=== PATIENT | male | born 1960 | race Caucasian/White ===

== ENCOUNTER 2022-08-07 10:23 | Observation (INO) ==
--- NOTE | 2022-08-07 10:41 | DR.CP ---
HPI Time Seen Time Seen by Provider: 08/07/22 10:40 PCP Primary Care Physician: Shant Silva HPI Comment HPI Comment: PATIENT IS 62YR OLD MALE WITH HISTORY OF CAD AND COPD IN ER WITH CHEST TIMES 4 DAYS. Complaint Chief Complaint:: Mid chest pain with shortness of breath that started a few days ago. He denies any relief. He had a stent in [place], [place] at [facility] under Safille in June. He last Safille on July 27 in [place] office, that appointment went well, no comlaints. Self Treatment fo Chief Complaint: nitro last this morning at 9:30, Lisinopril, Carvediolol, Asp Reviewed Nurses Notes Review: Yes Source History Provided: Patient Mode of Arrival Mode of Arrival: Ambulatory Timing Onset of Chief Complaint: 08/03/22 PMH PMH Past Medical History: Yes Past Medical History: COPD Past Medical History Comment: emphysema Past Surgical History: Yes Surgical History: Cholecystectomy and Other Past Surgical History Comment: heart stent Family History History of Family Medical Conditions: Yes Family Medical History: Diabetes Mellitus, Cancer, [place], Coronary Artery Disease, Heart Failure and Hypertension Social History Does patient currently use any type of tobacco product: No Have you used tobacco products in the last 12 months: No Type of Tobacco Use: Cigarettes How many years tobacco product used: 50 Does any household member use tobacco: No Alcohol Use: None Do you use any recreational Drugs:: No Lives With: Spouse and Friend Lives Where: Home Infectious screening In the last 2 months have you had wt loss of >10#?: NO Have you had fever, night sweats or hemotysis?: No Have you traveled outside the country in the last 6 months?: No Isolation: Standard PE Vitals Vitals: Temperature 98.1 F Pulse Rate [Left Radial] 79 Pulse Rate 65 Respiratory Rate 34 Blood Pressure [Left Arm] 89/55 Blood Pressure 108/59 O2 Sat by Pulse Oximetry 96 ROR Labs Reviewed Result Diagrams: 08/07/22 10:55 08/07/22 10:45 Laboratory: WBC 10.1 X10^3/uL (3.6-10.0) H 08/07/22 10:55 RBC 5.24 X10^6/uL (4.7-6.0) 08/07/22 10:55 Hgb 16.2 g/dL (13.5-18.0) 08/07/22 10:55 Hct 47.2 % (42.0-54.0) 08/07/22 10:55 MCV 90.1 fL (80.0-100.0) 08/07/22 10:55 MCH 31.0 pg (27.0-34.0) 08/07/22 10:55 MCHC 34.4 g/dL (33.0-35.0) 08/07/22 10:55 RDW 14.1 % (11.6-16.5) 08/07/22 10:55 Plt Count 262 X10^3/uL (150.0-450.0) 08/07/22 10:55 MPV 8.1 fL (7.4-11.0) 08/07/22 10:55 Neut % (Auto) 59.6 % (42.0-75.0) 08/07/22 10:55 Lymph % (Auto) 28.2 % (21.0-51.0) 08/07/22 10:55 [place] % (Auto) 9.8 % (0.0-13.0) 08/07/22 10:55 Eos % (Auto) 1.8 % (0.9-2.9) 08/07/22 10:55 Baso % (Auto) 0.6 % (0.2-1.0) 08/07/22 10:55 Neut # (Auto) 6.0 x10^3/uL (2.2-4.8) H 08/07/22 10:55 Lymph # (Auto) 2.9 X10^3/uL (1.3-2.9) 08/07/22 10:55 [place] # (Auto) 1.0 x10^3/uL (0.3-0.8) H 08/07/22 10:55 Eos # (Auto) 0.2 x10^3/uL (0.0-0.2) 08/07/22 10:55 Baso # (Auto) 0.1 X10^3/uL (0.0-0.1) 08/07/22 10:55 Absolute Nucleated RBC 0.1 /100WBC 08/07/22 10:55 PT 13.2 SECONDS (11.8-14.3) 08/07/22 10:55 INR Target Range - 08/07/22 10:55 INR 1.03 (0.8-1.3) 08/07/22 10:55 APTT 32.0 SECONDS (22.9-36.5) 08/07/22 10:55 PTT Comment - 08/07/22 10:55 Sodium Cancelled 08/07/22 10:55 Corrected Sodium Cancelled 08/07/22 10:55 Potassium Cancelled 08/07/22 10:55 Chloride Cancelled 08/07/22 10:55 Carbon Dioxide Cancelled 08/07/22 10:55 BUN Cancelled 08/07/22 10:55 Creatinine Cancelled 08/07/22 10:55 Est GFR (MDRD) Af Amer Cancelled 08/07/22 10:55 Est GFR (MDRD) Non-Af Cancelled 08/07/22 10:55 Glucose Cancelled 08/07/22 10:55 Calcium Cancelled 08/07/22 10:55 Corrected Calcium Cancelled 08/07/22 10:55 Total Bilirubin Cancelled 08/07/22 10:55 AST Cancelled 08/07/22 10:55 ALT Cancelled 08/07/22 10:55 Alkaline Phosphatase Cancelled 08/07/22 10:55 Creatine Kinase 176 Units/L (39-308) 08/07/22 14:45 Troponin I High Sens 6.7 ng/L (4.0-60.0) 08/07/22 14:45 Total Protein Cancelled 08/07/22 10:55 Albumin Cancelled 08/07/22 10:55 Globulin Cancelled 08/07/22 10:55 Albumin/Globulin Ratio Cancelled 08/07/22 10:55 Opioid Opioid Risk Tool Age (Lexa box if 16-45): No History of Preadolescent Sexual Abuse: No Total: 0 Total Score Risk Category: Low Risk Copyright: Barry MERRITT predicting aberrant behaviors Discharge Plan Discharge Plan Patient Disposition: 01 HOME, SELF-CARE Condition: Stable Health Concerns: Post Hospitalization: new medications and changes needed to prevent readmission or further decline. Pt educated and given instructions on all concerns. Plan of Treatment: Continue with present treatment and follow up plan. Pt is to keep follow up appointment as instructed and take medications as ordered. Orders to Discharge Patient Discharge Orders: Transfer (Routine); Ordered 08/07/22 Ordered By: YOJANA LEAL Follow ups/Referrals Follow ups/Referrals: SHANT SILVA [Primary Care Provider] - 3 days
[2022-08-07 11:08] LABS: HEMOGLOBIN 16.2 g/dL (13.5-18.0); MEAN PLATELET VOLUME 8.1 fL (7.4-11.0); WHITE BLOOD COUNT 10.1 X10^3/uL (3.6-10.0)
--- NOTE | 2022-08-07 11:08 | EKG ---
Test Reason : CHEST PAIN,SOB Blood Pressure : */* mmHG Vent. Rate : 67 BPM Atrial Rate : 67 BPM P-R Int : 176 ms QRS Dur : 96 ms QT Int : 372 ms P-R-T Axes : 53 73 59 degrees QTc Int : 393 ms Normal sinus rhythm Normal ECG Confirmed by Tommy Smith ([id number]) on 08/17/2022 6:03:28 PM Referred By: Confirmed By: Tommy Smith
[2022-08-07 11:11] LABS: BASOPHILS # (AUTO) 0.1 X10^3/uL (0.0-0.1); BASOPHILS % (AUTO) 0.6 % (0.2-1.0); EOSINOPHILS # (AUTO) 0.2 x10^3/uL (0.0-0.2); EOSINOPHILS % (AUTO) 1.8 % (0.9-2.9); HEMATOCRIT 47.2 % (42.0-54.0); LYMPHOCYTES # (AUTO) 2.9 X10^3/uL (1.3-2.9); LYMPHOCYTES % (AUTO) 28.2 % (21.0-51.0); MEAN CORPUSCULAR HGB CONC 34.4 g/dL (33.0-35.0); MEAN CORPUSCULAR VOLUME 90.1 fL (80.0-100.0); MONOCYTES % (AUTO) 9.8 % (0.0-13.0); NEUTROPHILS % (AUTO) 59.6 % (42.0-75.0); RED BLOOD COUNT 5.24 X10^6/uL (4.7-6.0); RED CELL DISTRIBUTION WIDTH 14.1 % (11.6-16.5)
[2022-08-07 11:17] LABS: INR 1.03 (0.8-1.3)
[2022-08-07 11:20] LABS: ALANINE AMINOTRANSFERASE 26 Units/L (12-78); ALBUMIN 3.6 g/dL (3.4-5.0); ALKALINE PHOSPHATASE 65 Units/L (46-116); ASPARTATE AMINO TRANSFERASE 24 Units/L (15-37); BLOOD UREA NITROGEN 10 mg/dL (7-18); CALCIUM 8.4 mg/dL (8.5-10.1); CARBON DIOXIDE 28.4 mmol/L (21-32); CHLORIDE 102 mmol/L (98-107); COR NA(FOR HYPERGLY) 138 mmol/L (136-145); CREATINE KINASE 195 Units/L (39-308); CREATININE 0.98 mg/dL (0.70-1.30); SODIUM 137 mmol/L (136-145); TOTAL PROTEIN 6.6 g/dL (6.4-8.2); eGFR NON BLACK RACES > 60 (>60)
--- NOTE | 2022-08-07 11:46 | RAD ---
HISTORYChest painSTUDYCHEST, 1 [id number] cardiomediastinal silhouette is stable. Similar chronic changes in the lungs. No acute airspace disease. No pneumothorax or effusion. The bony thorax appears intact.IMPRESSIONNo acute cardiopulmonary disease.Electronically signed by: LILY GOLD (Aug 07, 2022 11:44:53)
[2022-08-07] MEDS ORDERED: MORPHINE SULFATE INJ 2 MG INJ IVP PRN (17:36)
[2022-08-07 18:04] VITALS: BMI 29.3
[2022-08-07] MEDS: PEPCID 20 MG VIAL 20 MG in NS 50 ML IV 50 ML IV SCH ×2 (19:04→21:00)
[2022-08-07] MEDS ORDERED: NS 250 ML IV 250 ML IV ONE (20:01)
[2022-08-07] MEDS: PULMICORT NEB TX 0.5 MG NEB SCH (21:00)
--- NOTE | 2022-08-08 01:41 | EKG ---
Test Reason : chest pain,sob Blood Pressure : */* mmHG Vent. Rate : 60 BPM Atrial Rate : 60 BPM P-R Int : 186 ms QRS Dur : 94 ms QT Int : 390 ms P-R-T Axes : 62 77 61 degrees QTc Int : 390 ms Normal sinus rhythm Normal ECG Confirmed by Tommy Smith ([id number]) on 08/17/2022 6:02:10 PM Referred By: Confirmed By: Tommy Smith
[2022-08-08 02:33] LABS: BASOPHILS # (AUTO) 0.1 X10^3/uL (0.0-0.1); BASOPHILS % (AUTO) 0.7 % (0.2-1.0); EOSINOPHILS # (AUTO) 0.2 x10^3/uL (0.0-0.2); HEMATOCRIT 49.3 % (42.0-54.0); HEMOGLOBIN 16.9 g/dL (13.5-18.0); LYMPHOCYTES # (AUTO) 3.5 X10^3/uL (1.3-2.9); LYMPHOCYTES % (AUTO) 33.8 % (21.0-51.0); MEAN CORPUSCULAR HEMOGLOBIN 30.8 pg (27.0-34.0); MEAN CORPUSCULAR HGB CONC 34.3 g/dL (33.0-35.0); MEAN CORPUSCULAR VOLUME 89.7 fL (80.0-100.0); MEAN PLATELET VOLUME 7.9 fL (7.4-11.0); MONOCYTES # (AUTO) 1.3 x10^3/uL (0.3-0.8); NEUTROPHILS # (AUTO) 5.2 x10^3/uL (2.2-4.8); NEUTROPHILS % (AUTO) 50.5 % (42.0-75.0); WHITE BLOOD COUNT 10.3 X10^3/uL (3.6-10.0)
[2022-08-08 02:43] LABS: ALANINE AMINOTRANSFERASE 23 Units/L (12-78); ALBUMIN 3.6 g/dL (3.4-5.0); ALKALINE PHOSPHATASE 64 Units/L (46-116); ASPARTATE AMINO TRANSFERASE 19 Units/L (15-37); BLOOD UREA NITROGEN 9 mg/dL (7-18); CALCIUM 8.2 mg/dL (8.5-10.1); CARBON DIOXIDE 29.7 mmol/L (21-32); CHLORIDE 104 mmol/L (98-107); CHOL/HDL RATIO 2.9 (0.0-5.0); CHOLESTEROL 98 mg/dL (0-200); CREATININE 0.94 mg/dL (0.70-1.30); HDL CHOLESTEROL 34 mg/dL (40-60); MAGNESIUM 1.8 mg/dL (2.0-2.9); SODIUM 141 mmol/L (136-145); TOTAL PROTEIN 6.6 g/dL (6.4-8.2); TRIGLYCERIDES 124 mg/dL (0-150); eGFR NON BLACK RACES > 60 (>60)
[2022-08-08] MEDS: PEPCID 20 MG VIAL 20 MG in NS 50 ML IV 50 ML IV SCH (08:16)
[2022-08-08] MEDS: PULMICORT NEB TX 0.5 MG NEB SCH ×2 (08:47→20:20)
[2022-08-08] MEDS ORDERED: LEVSIN/MAALOX/LIDOC VISC PO PRN (12:08)
--- NOTE | 2022-08-08 12:14 | DR.H&P ---
H&P History & Physical for Day of: H&P Date: 08/08/22 Chief Complaint Chief Complaint: chest pain Allergies Allergies Allergy/AdvReac Type Severity Reaction Status Date / Time No Known Drug Allergies Allergy Verified 07/22/22 00:06 History of Present Illness History of Present Illness: Mr Cleaning is a 62y/o male with a PMH of CAD s/p PCI, COPD, HTN and HLD presented with worsening chest pain. He reports having constant chest pain for the past few days. Denies any falls. He took some nitro yesterday with partial relief. He also reports worsening indigestion and usually drinks 2 Dr Peppers to make it better but that did not work. He reports constant mid-sternum discomfort. Denies any radiation to the neck or arm. No associated N/V or diaphoresis or SOB. In the ER, cardiac enzymes were negative, CXR did not show any infection. He was admitted for further evaluation. Patient had a stent placed in [facility] in July and sees Dr Smith. Labs reviewed Trop x 4 negative WBC 10.3 BUN/Cr 9/0.94 CXR: no acute process Plan: Continue telemetry, confirm patient's home medications, continue pain control. Continue pepcid, add GI cocktail. Replace Mag. Monitor AM labs/imaging. Past Medical History Past Medical History: COPD Past Surgical History Surgical History: Cholecystectomy and Other Family History Family Medical History: Diabetes Mellitus, Cancer, [place], Coronary Artery Disease, Heart Failure and Hypertension Social History Does patient currently use any type of tobacco product: No (States quit 1 week ago) Have you used tobacco products in the last 12 months: No Type of Tobacco Use: Cigarettes How many years tobacco product used: 50 Does any household member use tobacco: No Alcohol Use: None Drug Use: None Medications Home Medications: No Known Drug Allergies Allergy (Verified 07/22/22 00:06) Labs Result Diagrams: 08/08/22 02:17 08/08/22 02:17 Labs: Laboratory WBC 10.3 X10^3/uL (3.6-10.0) H 08/08/22 02:17 RBC 5.50 X10^6/uL (4.7-6.0) 08/08/22 02:17 Hgb 16.9 g/dL (13.5-18.0) 08/08/22 02:17 Hct 49.3 % (42.0-54.0) 08/08/22 02:17 MCV 89.7 fL (80.0-100.0) 08/08/22 02:17 MCH 30.8 pg (27.0-34.0) 08/08/22 02:17 MCHC 34.3 g/dL (33.0-35.0) 08/08/22 02:17 RDW 14.0 % (11.6-16.5) 08/08/22 02:17 Plt Count 260 X10^3/uL (150.0-450.0) 08/08/22 02:17 MPV 7.9 fL (7.4-11.0) 08/08/22 02:17 Neut % (Auto) 50.5 % (42.0-75.0) 08/08/22 02:17 Lymph % (Auto) 33.8 % (21.0-51.0) 08/08/22 02:17 [place] % (Auto) 13.0 % (0.0-13.0) 08/08/22 02:17 Eos % (Auto) 2.0 % (0.9-2.9) 08/08/22 02:17 Baso % (Auto) 0.7 % (0.2-1.0) 08/08/22 02:17 Neut # (Auto) 5.2 x10^3/uL (2.2-4.8) H 08/08/22 02:17 Lymph # (Auto) 3.5 X10^3/uL (1.3-2.9) H 08/08/22 02:17 [place] # (Auto) 1.3 x10^3/uL (0.3-0.8) H 08/08/22 02:17 Eos # (Auto) 0.2 x10^3/uL (0.0-0.2) 08/08/22 02:17 Baso # (Auto) 0.1 X10^3/uL (0.0-0.1) 08/08/22 02:17 Absolute Nucleated RBC 0.0 /100WBC 08/08/22 02:17 PT 13.2 SECONDS (11.8-14.3) 08/07/22 10:55 INR Target Range - 08/07/22 10:55 INR 1.03 (0.8-1.3) 08/07/22 10:55 APTT 32.0 SECONDS (22.9-36.5) 08/07/22 10:55 PTT Comment - 08/07/22 10:55 Sodium 141 mmol/L (136-145) 08/08/22 02:17 Corrected Sodium TNP 08/08/22 02:17 Potassium 4.0 mmol/L (3.5-5.1) 08/08/22 02:17 Chloride 104 mmol/L (98-107) 08/08/22 02:17 Carbon Dioxide 29.7 mmol/L (21-32) 08/08/22 02:17 BUN 9 mg/dL (7-18) 08/08/22 02:17 Creatinine 0.94 mg/dL (0.70-1.30) 08/08/22 02:17 Est GFR (MDRD) Af Amer > 60 (>60) 08/08/22 02:17 Est GFR (MDRD) Non-Af > 60 (>60) 08/08/22 02:17 Glucose 92 mg/dL (65-99) 08/08/22 02:17 Calcium 8.2 mg/dL (8.5-10.1) L 08/08/22 02:17 Corrected Calcium TNP 08/08/22 02:17 Magnesium 1.8 mg/dL (2.0-2.9) L 08/08/22 02:17 Total Bilirubin 0.50 mg/dL (0.2-1.0) 08/08/22 02:17 AST 19 Units/L (15-37) 08/08/22 02:17 ALT 23 Units/L (12-78) 08/08/22 02:17 Alkaline Phosphatase 64 Units/L (46-116) 08/08/22 02:17 Creatine Kinase 120 Units/L (39-308) 08/08/22 08:04 Troponin I High Sens 6.9 ng/L (4.0-60.0) 08/08/22 08:04 Total Protein 6.6 g/dL (6.4-8.2) 08/08/22 02:17 Albumin 3.6 g/dL (3.4-5.0) 08/08/22 02:17 Globulin 3.0 g/dL (2.5-4.5) 08/08/22 02:17 Albumin/Globulin Ratio 1.2 Ratio (1.1-2.1) 08/08/22 02:17 Triglycerides 124 mg/dL (0-150) 08/08/22 02:17 Cholesterol 98 mg/dL (0-200) 08/08/22 02:17 LDL Cholesterol, Calc 39 mg/dL (0-100) 08/08/22 02:17 HDL Cholesterol 34 mg/dL (40-60) L 08/08/22 02:17 Cholesterol/HDL Ratio 2.9 (0.0-5.0) 08/08/22 02:17 Review of Systems Constitutional: No Symptoms Reported Eyes: No Symptoms Reported ENT: No Symptoms Reported Respiratory: No Symptoms Reported Cardiovascular: Chest Pain Gastrointestinal: No Symptoms Reported Musculoskeletal: No Symptoms Reported Skin: No Symptoms Reported Neurological: No Symptoms Reported Physical Exam Vital Signs: Temperature 97.9 F Pulse Rate [Left Radial] 62 Pulse Rate 63 Respiratory Rate 20 Blood Pressure [Left Arm] 141/71 Blood Pressure 108/59 O2 Sat by Pulse Oximetry 93 Oriented: Normal Eyes: Normal Ear: Normal Throat: Normal Respiratory: Clear Throughout Cardiovascular: Normal Auscultation: Bowel Sounds: Normal Palpation: Normal Tenderness: Normal Musculoskeletal: Normal Psychiatric: Normal Mood Description: Calm Affect: Normal Speech Pattern: Clear and Appropriate Assessment/Plan (1) Indigestion: Status: Acute (2) Chest pain: Qualifiers: Chest pain type: unspecified Qualified Code(s): R07.9 - Chest pain, unspecified Status: Acute (3) CAD (coronary artery disease): Status: Acute (4) HTN (hypertension): Status: Acute (5) GERD (gastroesophageal reflux disease): Status: Acute (6) COPD (chronic obstructive pulmonary disease): Status: Acute Review H&P Reviewed: Yes Patient was examined?: Yes
[2022-08-08] MEDS: ASPIRIN 81 MG CHEWTAB PO SCH (14:39)
[2022-08-08] MEDS: ZESTRIL TAB 5 MG PO SCH (14:40)
[2022-08-08] MEDS: COREG TAB 6.25 MG PO SCH ×2 (14:40→20:29)
[2022-08-08] MEDS: PLAVIX PO SCH (14:41)
[2022-08-08] MEDS: PROTONIX TAB 40 MG PO SCH (14:50)
[2022-08-08] MEDS: MAGNESIUM SULFATE 1 GRAM/100 mL PREMIX 1 G/100 ML BAG IV PRN ×2 (15:32→17:01)
[2022-08-08] MEDS ORDERED: PEPCID TAB 20 MG PO PRN (20:00)
[2022-08-08] MEDS: LIPITOR TAB 80 MG PO SCH (20:29)
[2022-08-09 05:15] LABS: BASOPHILS # (AUTO) 0.1 X10^3/uL (0.0-0.1); BASOPHILS % (AUTO) 0.9 % (0.2-1.0); EOSINOPHILS # (AUTO) 0.2 x10^3/uL (0.0-0.2); EOSINOPHILS % (AUTO) 2.1 % (0.9-2.9); HEMATOCRIT 48.7 % (42.0-54.0); HEMOGLOBIN 16.6 g/dL (13.5-18.0); LYMPHOCYTES % (AUTO) 26.2 % (21.0-51.0); MEAN CORPUSCULAR HEMOGLOBIN 30.5 pg (27.0-34.0); MEAN CORPUSCULAR VOLUME 89.7 fL (80.0-100.0); MEAN PLATELET VOLUME 8.1 fL (7.4-11.0); MONOCYTES # (AUTO) 1.5 x10^3/uL (0.3-0.8); MONOCYTES % (AUTO) 12.7 % (0.0-13.0); NEUTROPHILS # (AUTO) 6.7 x10^3/uL (2.2-4.8); NEUTROPHILS % (AUTO) 58.1 % (42.0-75.0); RED BLOOD COUNT 5.43 X10^6/uL (4.7-6.0); RED CELL DISTRIBUTION WIDTH 14.2 % (11.6-16.5); WHITE BLOOD COUNT 11.6 X10^3/uL (3.6-10.0)
[2022-08-09 05:19] LABS: BLOOD UREA NITROGEN 10 mg/dL (7-18); CALCIUM 8.1 mg/dL (8.5-10.1); CARBON DIOXIDE 27.7 mmol/L (21-32); CHLORIDE 104 mmol/L (98-107); MAGNESIUM 1.9 mg/dL (2.0-2.9); SODIUM 141 mmol/L (136-145); eGFR NON BLACK RACES > 60 (>60)
[2022-08-09] MEDS: PULMICORT NEB TX 0.5 MG NEB SCH ×2 (08:23→22:13)
[2022-08-09] MEDS: PLAVIX PO SCH (08:26)
[2022-08-09] MEDS: PROTONIX TAB 40 MG PO SCH (08:27)
[2022-08-09] MEDS: ASPIRIN 81 MG CHEWTAB PO SCH (08:27)
[2022-08-09] MEDS: COREG TAB 6.25 MG PO SCH ×2 (08:27→20:12)
--- NOTE | 2022-08-09 08:45 | PCM.PROG ---
Progress Note Progress Note for Day of Date of Exam: 08/09/22 Subjective Subjective: This morning the patient continues to pull complain of pain in the epigastrium and right upper quadrant. He is tender on palpation both of these areas. He is also complaining of pain in the area just above the epigastrium and the lower chest. All his troponins have been reviewed as well as his EKGs and they are all within normal limits. I will go ahead and order the H. pylori going to see if this is causing his epigastric pain and do a gallbladder ultrasound as he reports to me that he has a history of gallstones. I will go ahead and consult general surgeon, Dr. Mariano to see the patient to see if he will end up needing a cholecystectomy because of the gallstones. Past Medical Family Social History Allergies: Allergies No Known Drug Allergies Allergy (Verified 07/22/22 00:06) Review of Systems ROS: No change since H&P Vital Signs and I&O's Vital Signs: Temperature 97.7 F Pulse Rate [Left Radial] 61 Pulse Rate 60 Respiratory Rate 18 Blood Pressure [Left Arm] 104/64 Blood Pressure 108/59 O2 Sat by Pulse Oximetry 94 Intake and Output: Intake & Output 08/06/22 08/07/22 08/08/22 08/09/22 11:59 11:59 11:59 11:59 Intake Total 2460 / 2460 2370 / 2370 Output Total 900 / 900 Balance 2460 / 2460 1470 / 1470 Physical Exam Oriented: Normal Eyes: Normal Ear: Normal Throat: Normal Cardiovascular: Normal Auscultation: Bowel Sounds: Normal Tenderness: RUQ and Epigastric Musculoskeletal: Normal Psychiatric: Normal Mood Description: Calm Affect: Normal Speech Pattern: Clear and Appropriate Laboratory and Diagnostics Result Diagrams: 08/09/22 04:39 08/09/22 04:39 Labs: Laboratory WBC 11.6 X10^3/uL (3.6-10.0) H 08/09/22 04:39 RBC 5.43 X10^6/uL (4.7-6.0) 08/09/22 04:39 Hgb 16.6 g/dL (13.5-18.0) 08/09/22 04:39 Hct 48.7 % (42.0-54.0) 08/09/22 04:39 MCV 89.7 fL (80.0-100.0) 08/09/22 04:39 MCH 30.5 pg (27.0-34.0) 08/09/22 04:39 MCHC 34.0 g/dL (33.0-35.0) 08/09/22 04:39 RDW 14.2 % (11.6-16.5) 08/09/22 04:39 Plt Count 260 X10^3/uL (150.0-450.0) 08/09/22 04:39 MPV 8.1 fL (7.4-11.0) 08/09/22 04:39 Neut % (Auto) 58.1 % (42.0-75.0) 08/09/22 04:39 Lymph % (Auto) 26.2 % (21.0-51.0) 08/09/22 04:39 [place] % (Auto) 12.7 % (0.0-13.0) 08/09/22 04:39 Eos % (Auto) 2.1 % (0.9-2.9) 08/09/22 04:39 Baso % (Auto) 0.9 % (0.2-1.0) 08/09/22 04:39 Neut # (Auto) 6.7 x10^3/uL (2.2-4.8) H 08/09/22 04:39 Lymph # (Auto) 3.0 X10^3/uL (1.3-2.9) H 08/09/22 04:39 [place] # (Auto) 1.5 x10^3/uL (0.3-0.8) H 08/09/22 04:39 Eos # (Auto) 0.2 x10^3/uL (0.0-0.2) 08/09/22 04:39 Baso # (Auto) 0.1 X10^3/uL (0.0-0.1) 08/09/22 04:39 Absolute Nucleated RBC 0.0 /100WBC 08/09/22 04:39 PT 13.2 SECONDS (11.8-14.3) 08/07/22 10:55 INR Target Range - 08/07/22 10:55 INR 1.03 (0.8-1.3) 08/07/22 10:55 APTT 32.0 SECONDS (22.9-36.5) 08/07/22 10:55 PTT Comment - 08/07/22 10:55 Sodium 141 mmol/L (136-145) 08/09/22 04:39 Corrected Sodium TNP 08/09/22 04:39 Potassium 3.9 mmol/L (3.5-5.1) 08/09/22 04:39 Chloride 104 mmol/L (98-107) 08/09/22 04:39 Carbon Dioxide 27.7 mmol/L (21-32) 08/09/22 04:39 BUN 10 mg/dL (7-18) 08/09/22 04:39 Creatinine 1.00 mg/dL (0.70-1.30) 08/09/22 04:39 Est GFR (MDRD) Af Amer > 60 (>60) 08/09/22 04:39 Est GFR (MDRD) Non-Af > 60 (>60) 08/09/22 04:39 Glucose 98 mg/dL (65-99) 08/09/22 04:39 Calcium 8.1 mg/dL (8.5-10.1) L 08/09/22 04:39 Corrected Calcium TNP 08/08/22 02:17 Magnesium 1.9 mg/dL (2.0-2.9) L 08/09/22 04:39 Total Bilirubin 0.50 mg/dL (0.2-1.0) 08/08/22 02:17 AST 19 Units/L (15-37) 08/08/22 02:17 ALT 23 Units/L (12-78) 08/08/22 02:17 Alkaline Phosphatase 64 Units/L (46-116) 08/08/22 02:17 Creatine Kinase 120 Units/L (39-308) 08/08/22 08:04 Troponin I High Sens 6.9 ng/L (4.0-60.0) 08/08/22 08:04 Total Protein 6.6 g/dL (6.4-8.2) 08/08/22 02:17 Albumin 3.6 g/dL (3.4-5.0) 08/08/22 02:17 Globulin 3.0 g/dL (2.5-4.5) 08/08/22 02:17 Albumin/Globulin Ratio 1.2 Ratio (1.1-2.1) 08/08/22 02:17 Triglycerides 124 mg/dL (0-150) 08/08/22 02:17 Cholesterol 98 mg/dL (0-200) 08/08/22 02:17 LDL Cholesterol, Calc 39 mg/dL (0-100) 08/08/22 02:17 HDL Cholesterol 34 mg/dL (40-60) L 08/08/22 02:17 Cholesterol/HDL Ratio 2.9 (0.0-5.0) 08/08/22 02:17 Plan (1) Indigestion: Status: Acute (2) Chest pain: Status: Acute Qualifiers: Chest pain type: unspecified Qualified Code(s): R07.9 - Chest pain, unspecified (3) CAD (coronary artery disease): Status: Acute (4) HTN (hypertension): Status: Acute (5) GERD (gastroesophageal reflux disease): Status: Acute (6) COPD (chronic obstructive pulmonary disease): Status: Acute (7) Epigastric pain determined by examination: Status: Acute Plan: I will check H. pylori this morning. (8) Right upper quadrant pain: Status: Acute Plan: I will check gallbladder ultrasound today. We will also consult general surgery.
--- OUTSIDE RECORDS SUMMARY | 2022-08-09 09:08 | XMS | Continuity of Care Document ---
:1960 Author Name Control Room Technician, System Address Unavailable Unavailable , Care Team Providers Name Role Phone No, PCP Unavailable Unavailable Shant Silva Unavailable Sonia Mccarthy Unavailable Larry Vera MD Unavailable Physical Therapy, Mason Unavailable Blanca Calderon Unavailable Deepthi Mariano Unavailable Danni Danielle Unavailable Unavailable Aurea Childs Unavailable Unavailable Unavailable Unavailable Problems Name Dates Details Abdominal pain (R10.9, 789.00) Status: A ctive Abdominal pain (R10.9, 789.00) Comments: Suspect patient may have some gastritis and possible stomach ulcer so I will start him on Protonix 40 mg twice daily x3 days then daily after 3 days. Today is Tuesday I will recheck him on Tuesday, 09 August 2022.Tejas nt called earlier this morning wanted come in because of generalized abdominal pain. He comes in when I examined him he was tender in all quadrants and he reported he was having a lot of acid reflux and bloating. Status: Active Allergies (T78.40XA, 995.3) Status: Acti ve Aneurysm (I72.9, 442.9) Status: Active Aortic aneurysm, thoracic (I71.2, 441.2) Comments: Patient comes in today concerned that he was just diagnosed with a 4.2 cm ascending aortic aneurysm in his chest. This is diagnosed 3 weeks ago by ethanol operator, Dr. Stockton in [place], [place]. This was seen on January [address] scan done at [facility] in [place], [place]. Status: Active Asthma Status: Active Back strain, initial encounter (S39.012A, 847.9) Comments: Patient has acute muscle strain I suspect and will treat him with somal, Toradol and p.o. Percocet 10/325 mg since his hydrocodone 7.5/325 mg is not reducing amount of pain he is feeling. I told the pat ient I will recheck him in a month and for him to use a heating pad and hot water heater when he is getting a shower and that if the pain is getting worse prior to then to let me know.Mr. Cleaning comes i n today stating that he had an acute episode of back pain just on the medial side of the left shoulder blade yesterday. This happened after he was standing at the back of his truck and he was smoking a cigarette and he tur tamir and he said it felt like someone stabbed him in the back with a knife. Since then he has had pain that is worsened with taking a deep breath but he is able to move his left arm a nd shoulder with no problems. Palpation revealed that he was exquisitely tender on the upper medial side and the deep muscles of his left upper back just medial to his left shoulder blade. Status: Active Blood pressure abnormally low (R03.1, 796.3) Comments: I will change patient's Coreg from 12.5 mg twice daily to 6.25 mg twice daily Status: Active CAD (coronary artery disease) (I25.10, 414.00) Status: Active Chronic back pain (M54.9, 724.5) Comment s: chronic back pain stable, refill hydrocodone pain medicine in 4 days from today.pain is still controlled with hydrocodone 7.5/325 mg. He still takes this 2 times a day. Status: Active Chronic pain of left knee (M25.562, 719.46) Comments: I will go ahead and refill patient's hydrocodone today. I will check a left knee x-ray to see if there is any changes compared to his last left knee x-ray.Patient reports his knee has been hurting him w marilyn as of late. He does have history of chronic left knee pain. Status: Active Cigarette smoker (F17.210, 305.1) Status : Active Common bile duct dilatation (K83.8, 576.8) Status: Active COPD exacerbation (J44.1, 491.21) Status : Active COPD, severity to be determined (J44.9, 496) Comments: Patient is on Symbicort 60-4.51 puff twice daily. He reports it is helping but thinks he could benefit more from a higher dose. He is 95% on room air today. I will go ahead and his Symbicort 160/4.5 1 puff twice daily. Status: Active [place] of foot (L84, 700) Comments: corn o f the right plantar foot. I will refer to patient to podiatry for further evaluation and treatment, Dr. Mccarthy in [place], [place].it is noted this is an addendum to the note done earlier today. the bottom of the ri ght plantar foot at the pad proximal to the hallux is tender and has thickened skin. Status: Active COVID-19 ruled out (Z20.822, V01.79) Sta tus: Active Dilated intrahepatic bile duct (K83.8, 576.8) Comments: I will refer the patient to gastroenterology, Dr. Calderon for a possible ERCP or if he feel he should transfer him to [facility] so that he may have a MRCP.The patient comes in this morning reporting h e went to the emerge ncy department over the weekend. He had acute episode of abdominal pain in the epigastrium and right upper quadrant. When they went to triage the patient they found him very diaphore tic and pale and wor k-up revealed from a CT scan that he had worsening intrahepatic and extrahepatic biliary dilatation. There was no definite etiology that could be identified although periampullary ma ss or radiolucent ch oledocholithiasis or not excluded. They recommended that the patient have a ERCP or MRCP. Status: Active Encounter for monitoring opioid maintenance therapy (Z51.81, V58.83) Status: Active Excessive urination at night (R35.1, 788.43) Status: Active Fatigue (R53.83, 780.79) Comments: We wi ll check a fatigue work-up.Patient reports feeling tired and fatigued with low energy for several weeks now. He also reports having decreased sexual drive as well. Status: Active Fatigue (R53.83, 780.79) Status: Active Follow-up exam (Z09, V67.9) Comments: Terrance eddy is here for hospital follow-up status post coronary artery stenting x1. Patient developed chest pain while he was with his at [facility] in [place], [place]. While in hospital he had yordan st pain was admitted and Underwent coronary artery stenting x1 Status: Active Hepatitis-C (B19.20, 070.70) Status: Act salma High cholesterol (E78.00, 272.0) Status: Active Inguinal hernia, right (K40.90, 550.90) Status: Active Left shoulder pain (M25.512, 719.41) Com ments: I will do a physical therapy referral to [facility] here in [place], [place].Patient still complaining of left shoulder pain. Pain is in the posterior left shoulder seems to originate from the lower part of the trapezius muscl e. Patient did not respond well to nonsteroidal therapy along with the muscle relaxer somal. He still having pain and stiffness with it. Status: Active Libido, decreased (R68.82, 799.81) Comme nts: Check testosterone panel.Patient reports decreased sexual drive as of recently. Status: Active Low testosterone in male (R79.89, 790.99) Comments: I will start the patient on testosterone cypionate 100 mg IM weekly Status: Active Near syncope (R55, 780.2) Comments: I wi ll check bilateral carotid Doppler ultrasound on this patient.The patient reports he is getting dizzy and nearly passes out at times. Given his age and history of smoking he is at high risk for carotid artery disease. Status: Active Other [facility] (current) drug therapy (Z79.899, V58.69) Status: Active Polyuria (R35.89, 788.42) Comments: OTBS 98. No DM. Status: Active Reducible right inguinal hernia (K40.90, 550.90) Status: Active S/P herniorrhaphy (Z98.890, V45.89) Comm ents: upon examination Of the surgical site do not palpate any abnormalities nor observe any either.. Status: Active Shoulder pain (M25.519, 719.41) Status: Active Sinusitis, acute (J01.90, 461.9) Comment s: Yellow/green sinus drainage x 2 days now. Draining down throat making it sore. Status: Active Skin Cancer Status: Active Status post right inguinal hernia repair, follow-up exam (Z0 9, V67.09) Status: Active Tobacco abuse (Z72.0, 305.1) Status: Act salma Tobacco use disorder (F17.200, 305.1) St atus: Active Urge incontinence (N39.41, 788.31) Statu s: Active Vitamin D deficiency (E55.9, 268.9) Stat us: Active Medications Name Dates Details Advair Diskus 250-50 MCG/ACT Inhalation Aerosol Powder Breath Activated 1 (one) Puff two times daily for 0 days Quantity: 1 {Each} Refills: 3 Ordered:15-Apr-2022 Danni Danielle Start : 15-Apr-2022 Active Aspirin 81 MG Oral Tablet Chewable 1 (one) Tablet daily for 90 days Quantity: 90 {Tablet} Refills: 3 Ordered:23-Jul-2022 Danni Danielle Start : 20-Jul-2022 Active Atorvastatin Calcium 80 MG Oral Tablet 1 (one) Tablet at bedtime for 90 days Quantity: 90 {Tablet} Refills: 2 Ordered:20-Jul-2022 Shant Silva Start : 20-Jul-2022 Active Carvedilol 6.25 MG Oral Tablet 1 (one) Tablet every twelve hours for 30 days Quantity: 60 {Tablet} Refills: 5 Ordered:20-Jul-2022 Danni Danielle Start : 20-Jul-2022 Active Cetirizine HCl 10 MG Oral Tablet 1 (one) Tablet daily for 90 days Quantity: 90 {Tablet} Refills: 3 Ordered:06-Aug-2022 Danni Danielle Start : 06-Aug-2022 Active Comments:Mail order. Cetirizine HCl 10 MG Oral Tablet 1 (one) Tablet daily for 30 days Quantity: 30 {Tablet} Refills: 6 Ordered:06-Aug-2022 Danni Danielle Start : 06-Aug-2022 Active Clopidogrel Bisulfate 75 MG Oral Tablet 1 (one) Tablet daily for 90 days Quantity: 90 {Tablet} Refills: 3 Ordered:23-Jul-2022 Danni Danielle Start : 20-Jul-2022 Active HYDROcodone-Acetaminophen 7.5-325 MG Oral Tablet 1 (one) Tablet two times daily, as needed for 0 days Quantity: 60 {Tablet} Refills: 0 Ordered:26-Jul-2022 Shant Silva Start : 26-Jul-2022 Active Comments:Medication taken as needed. Ketorolac Tromethamine 10 MG Oral Tablet 1 (one) Tablet every six hours For muscle pain and inflammation for 0 days Quantity: 20 {Tablet} Refills: 0 Ordered:26-May-2022 Danni Danielle Start : 26-May-2022 Active Lisinopril 2.5 MG Oral Tablet 1 (one) Tablet daily for 90 days Quantity: 90 {Tablet} Refills: 3 Ordered:23-Jul-2022 Danni Danielle Start : 20-Jul-2022 Active Nitroglycerin 0.4 MG Sublingual Tablet Sublingual 1 (one) Tablet Every 5 minutes x 3 As needed For chest pain for 0 days Quantity: 25 {Tablet} Refills: 3 Ordered:23-Jul-2022 Danni Danielle Start : 23-Jul-2022 Active Comments:Medication taken as needed. Pantoprazole Sodium 40 MG Oral Tablet Delayed Release 1 (one) Tablet daily for 30 days Quantity: 30 {Tablet} Refills: 2 Ordered:06-Aug-2022 Shant Silva Start : 06-Aug-2022 Active Percocet 10-325 MG Oral Tablet 1 (one) Tablet every six hours, as needed For pain. for 0 days Quantity: 40 {Tablet} Refills: 0 Ordered:26-May-2022 Danni Danielle Start : 26-May-2022 Active Comments:Medication taken as needed. ProAir HFA 108 (90 Base) MCG/ACT Inhalation Aerosol Solution 2 puffs every 4-6 hours, as needed (108 (90 Base) MCG/ACT) Active Comments:Medication taken as needed. Soma 350 MG Oral Tablet 1 (one) Tablet every eight hours, as needed For muscle pain/spasm for 0 days Quantity: 30 {Tablet} Refills: 0 Ordered:26-May-2022 Danni Danielle Start : 26-May-2022 Active Comments:Medication taken as needed. Symbicort 160-4.5 MCG/ACT Inhalation Aerosol 1 (one) Puff two times daily for 30 days Quantity: 1 {Applicator} Refills: 5 Ordered:09-Apr-2022 Shant Silva Start : 09-Apr-2022 Active Comments:1 Inhaler Testosterone Cypionate 200 MG/ML Injection Solution 1/2 (one half) Milliliter Intramuscular injection weekly for 0 days Quantity: 10 {Milliliter} Refills: 0 Ordered:09-Jul-2022 Danni Danielle Start : 09-Jul-2022 Active Vitamin D3 75 MCG (3000 UT) Oral Tablet 1 (one) Tablet daiy for 30 days Quantity: 30 {Tablet} Refills: 3 Ordered:30-Mar-2022 Shant Silva Start : 30-Mar-2022 Active Cefuroxime Axetil 500 MG Oral Tablet 1 (one) Tablet two times daily for 0 days Quantity: 20 {Tablet} Refills: 0 Ordered:18-Nov-2021 Carley Alves Start : 10-Jul-2021 End : 18-Nov-2021 Inactive Chantix Continuing Month Irineo 1 MG Oral Tablet 1 (one) Tablet daily for 0 days Quantity: 90 {Tablet} Refills: 0 Ordered:10-Apr-2021 Elizabeth Phelps Start : 13-Oct-2020 End : 10-Apr-2021 Inactive Cipro 500 MG Oral Tablet 1 (one) Tablet two times daily for 7 days Quantity: 14 {Tablet} Refills: 0 Ordered:26-Jun-2020 Elizabeth Phelps Start : 26-Jun-2020 End : 03-Jul-2020 Inactive Diclofenac Sodium 50 MG Oral Tablet Delayed Release 1 (one) Tablet two times daily for 0 days Quantity: 60 {Tablet} Refills: 3 Ordered:18-Nov-2021 Carley Alves Start : 26-Sep-2020 End : 18-Nov-2021 Inactive HYDROcodone-Acetaminophen 7.5-325 MG Oral Tablet 1 (one) Tablet four times daily, as needed for 0 days Quantity: 60 {Tablet} Refills: 0 Ordered:26-Sep-2020 Elizabeth Phelps Start : 27-Jun-2020 End : 26-Sep-2020 Inactive Comments:Medication taken as needed. levoFLOXacin 500 MG Oral Tablet 1 (one) Tablet daily for 10 days Quantity: 10 {Tablet} Refills: 0 Ordered:18-Nov-2021 Shant Silva Start : 18-Nov-2021 End : 28-Nov-2021 Inactive Comments:for lung infection methylPREDNISolone 4 MG Oral Tablet Therapy Pack use as directed per instructions in pack for 6 days Quantity: 1 {Blister} Refills: 0 Ordered:18-Nov-2021 Shant Silva Start : 18-Nov-2021 End : 24-Nov-2021 Inactive Pantoprazole Sodium 40 MG Oral Tablet Delayed Release 1 (one) Tablet daily for 30 days Quantity: 30 {Tablet} Refills: 2 Ordered:26-Sep-2020 Elizabeth Phelps Start : 10-Jun-2020 End : 26-Sep-2020 Inactive Sulfamethoxazole-Trimethoprim 1 two times daily Inactive Tolterodine Tartrate ER 4 MG Oral Capsule Extended Release 24 Hour 1 (one) Capsule daily for 30 days Quantity: 30 {Capsule} Refills: 5 Ordered:18-Nov-2021 [place] Carley Start : 26-Aug-2021 End : 18-Nov-2021 Inactive Medications Administered Name Dates Details Cyanocobalamin 1000 MCG/ML Injection Solution Ordered : 13-Oct-2020 1 (one) Milliliter Shant Silva Start : 13-Oct-2020 End : 13-Oct-2020 Pending Comments:Site: Deltoid, (R); [facility] #[id number] cefTRIAXone Sodium 1 GM Injection Solution Reconstituted 1 (one) Gram Ordered:05-Jun-2020 Start : 02-Jun-2020 End : 02-Jun-2020 Administered Comments:Site: Buttocks, (R) Dexamethasone Sodium Phosphate 4 MG/ML Injection Solution 2 (two) Milliliter Ordered:05-Jun-2020 Start : 02-Jun-2020 End : 02-Jun-2020 Administered Comments:Site: Buttocks, (L) Kenalog 40 MG/ML Injection Suspension 1 (one) Milliliter Ordered:23-Jun-2022 Danni Danielle Start : 23-Jun-2022 End : 23-Jun-2022 Administered Comments:Site: Shoulder, (R) Lidocaine HCl (PF) 1 % Injection Solution 1 (one) Milliliter Ordered:23-Jun-2022 Danni Danielle Start : 23-Jun-2022 End : 23-Jun-2022 Administered Comments:Site: Shoulder, (R) Allergies and Adverse Reactions Name Dates Details No Known Drug Allergies (Allergy) Onset: 02-Jun-2020 Status : Active Past Medical History Name Dates Details Abdominal pain, periumbilical (R10.33, 789.05) Status: Inactive as of 09-Apr-2022 Food poisoning, bacterial (A05.9, 005.9) Status: Inactive as of 09-Apr-2022 Hepatitis C Status: Inactive as of 11-Nov-2021 Weight loss, abnormal (R63.4, 783.21) Co mments: CXR shows COPD changes. Suspect recent weight loss was from recent cholecystectomy.Approx. 20 lb. wt. loss in 10 months. Smoker sine 11 yo. Will check CXR. Status: Inactive as of 09-Apr-2022 Procedures Procedure Dates Details KENALOG 10 MG (J3301) Date: 23-Jun-2022 Completed 022 LIDOCAINE 10mg/1ml (J2001) Date: 23-Jun-2022 Completed Jun-2022 VENIPUNCTURE FOR BLOOD TEST Date: 23-Jun-2022 Completed ([id number]) Comments: 06/23/22 1 030 RAC SEJAL VENIPUNCTURE FOR BLOOD TEST Date: 11-Nov-2021 Completed Nov-2021 ([id number]) ELECTROCARDIOGRAM, COMPLETE Date: 10-Sep-2021 Completed Sep-2021 ([id number]) COLLECTION, CAPILLARY BLOOD Date: 26-Aug-2021 Completed SPECIMEN ([id number]) Comments: Collection of capillary blood from 3rd finger on right hand for Glucose finger stick check by Elizabeth Phelps LPN. Patient tolerated well. ADMINISTRATION FEE ([id number]) Date: 13-Oct-2020 Completed Comments: Intramuscu lar injection of Vitamin B12 1,000 mcg to Right Deltoid by Elizabeth Phelps LPN. Patient tolerated well. VENIPUNCTURE FOR BLOOD TEST Date: 26-Sep-2020 Completed ([id number]) Comments: Venipunctu re to RIGHT AC on 09/26/2020 at 09:15AM by Elizabeth Phelps LPN. Patient tolerated well. VENIPUNCTURE FOR BLOOD TEST Date: 10-Jun-2020 Completed Jun-2020 ([id number]) Comments: Venipunctu re to RIGHT AC on 06/10/2020 at 10:15AM by Elizabeth Mock, STUDENT LIFE ADVISOR. Patient tolerated well. DEXAMETHASONE ACETATE, 1 MG Date: 05-Jun-2020 Completed Jun-2020 ([id number]) ROCEPHIN 250 MG (J0696) Date: 05-Jun-2020 Completed 2019 Foot Surgery - Right Completed Low Back Disc Surgery Completed Family History Unknown Family Member Name Dates Details Alcohol Abuse Comments: Father. Status: Active Arthritis Comments: Father. Mo ther. Brother. Sister. Status: Active Asthma Comments: Father. Status: Active Colon Cancer Comments: Father. Status: Active Heart Disease Comments: Mother. Status: Active Hypercholesterolemia Comments: Father. M other. Status: Active Social History Name Dates Details Alcohol Use: Occasional alcohol use. Drinks beer. Status: Active Caffeine Use Comments: Drinks 2 s ervings of coffee per day. Status: Active Current tobacco use: Smokes 1 pack of ci garettes per day. Has been smoking for 30+ years. Would like to quit. Has tried unsuccessfully in the past to quit. Status: Active Drug Use: Prefer to discuss with provider. Status: Active Exercise History: yardwork. Status: Acti ve Seat Belt Use: Occasionally uses seat belts. Status: Active Smoking Status Name Dates Details Smoker (finding) Vital Signs Date Test Result Details :26 Body temperature 97.6 f Heart Rate 80 /min Comments: Pattern: R egular Respiratory rate 18 /min Comments: Pattern: U nlabored O2 SAT 96 % Comments: Room air Systolic blood pressure 122 mm[Hg] Comments: Patien t Position: Sitting; Cuff Location: Left Arm; Cuff Size: Standard Diastolic blood pressure 73 mm[Hg] Comments: Patie nt Position: Sitting; Cuff Location: Left Arm; Cuff Size: Standard Weight 194 lb Body height 69 in Body mass index (BMI) [Ratio] 28.65 kg/m2 Body surface area Derived from formula 2.04 m2 :46 Body temperature 97.3 f Heart Rate 73 /min Comments: Pattern: R egular Respiratory rate 18 /min Comments: Pattern: U nlabored O2 SAT 95 % Comments: Room air Systolic blood pressure 111 mm[Hg] Comments: Patien t Position: Sitting; Cuff Location: Left Arm; Cuff Size: Standard Diastolic blood pressure 61 mm[Hg] Comments: Patie nt Position: Sitting; Cuff Location: Left Arm; Cuff Size: Standard Weight 191 lb Body height 69 in Body mass index (BMI) [Ratio] 28.21 kg/m2 Body surface area Derived from formula 2.03 m2 :57 Body temperature 97.3 f Heart Rate 69 /min Comments: Pattern: R egular Respiratory rate 18 /min Comments: Pattern: U nlabored O2 SAT 94 % Comments: Room air Systolic blood pressure 95 mm[Hg] Comments: Patien t Position: Sitting; Cuff Location: Left Arm; Cuff Size: Standard Diastolic blood pressure 61 mm[Hg] Comments: Patie nt Position: Sitting; Cuff Location: Left Arm; Cuff Size: Standard Weight 191 lb Body height 69 in Body mass index (BMI) [Ratio] 28.21 kg/m2 Body surface area Derived from formula 2.03 m2 :27 Body temperature 97.5 f Heart Rate 64 /min Comments: Pattern: R egular Respiratory rate 18 /min Comments: Pattern: U nlabored O2 SAT 97 % Comments: Room air Systolic blood pressure 111 mm[Hg] Comments: Patien t Position: Sitting; Cuff Location: Left Arm; Cuff Size: Standard Diastolic blood pressure 64 mm[Hg] Comments: Patie nt Position: Sitting; Cuff Location: Left Arm; Cuff Size: Standard Weight 187 lb Body height 69 in Body mass index (BMI) [Ratio] 27.61 kg/m2 Body surface area Derived from formula 2.01 m2 :51 Body temperature 97.6 f Heart Rate 94 /min Comments: Pattern: R egular Respiratory rate 18 /min Comments: Pattern: U nlabored O2 SAT 99 % Comments: Room air Systolic blood pressure 119 mm[Hg] Comments: Patien t Position: Sitting; Cuff Location: Left Arm; Cuff Size: Standard Diastolic blood pressure 76 mm[Hg] Comments: Patie nt Position: Sitting; Cuff Location: Left Arm; Cuff Size: Standard Weight 188 lb Body height 69 in Body mass index (BMI) [Ratio] 27.76 kg/m2 Body surface area Derived from formula 2.01 m2 :49 Body temperature 97.3 f Heart Rate 76 /min Comments: Pattern: R egular Respiratory rate 18 /min Comments: Pattern: U nlabored O2 SAT 97 % Comments: Room air Systolic blood pressure 128 mm[Hg] Comments: Patien t Position: Sitting; Cuff Location: Left Arm; Cuff Size: Standard Diastolic blood pressure 73 mm[Hg] Comments: Patie nt Position: Sitting; Cuff Location: Left Arm; Cuff Size: Standard Weight 191 lb Body height 69 in Body mass index (BMI) [Ratio] 28.21 kg/m2 Body surface area Derived from formula 2.03 m2 :23 Body temperature 97.4 f Heart Rate 76 /min Comments: Pattern: R egular Respiratory rate 18 /min Comments: Pattern: U nlabored O2 SAT 94 % Comments: Room air Systolic blood pressure 106 mm[Hg] Comments: Patien t Position: Sitting; Cuff Location: Left Arm; Cuff Size: Standard Diastolic blood pressure 63 mm[Hg] Comments: Patie nt Position: Sitting; Cuff Location: Left Arm; Cuff Size: Standard Weight 191 lb Body height 69 in Body mass index (BMI) [Ratio] 28.21 kg/m2 Body surface area Derived from formula 2.03 m2 :08 Body temperature 97.4 f Comments: Metho d: Oral Heart Rate 78 /min Comments: Pattern: R egular Respiratory rate 18 /min Comments: Pattern: U nlabored O2 SAT 95 % Comments: Room air Systolic blood pressure 109 mm[Hg] Comments: Patien t Position: Sitting; Cuff Location: Left Arm; Cuff Size: Standard Diastolic blood pressure 73 mm[Hg] Comments: Patie nt Position: Sitting; Cuff Location: Left Arm; Cuff Size: Standard Weight 183 lb Body height 69 in Body mass index (BMI) [Ratio] 27.02 kg/m2 Body surface area Derived from formula 1.99 m2 :18 Body temperature 98.9 f Heart Rate 90 /min Comments: Pattern: R egular Respiratory rate 18 /min Comments: Pattern: U nlabored O2 SAT 97 % Comments: Room air Systolic blood pressure 109 mm[Hg] Comments: Patien t Position: Sitting; Cuff Location: Left Arm; Cuff Size: Standard Diastolic blood pressure 64 mm[Hg] Comments: Patie nt Position: Sitting; Cuff Location: Left Arm; Cuff Size: Standard Weight 190.5 lb Body height 68 in Body mass index (BMI) [Ratio] 28.97 kg/m2 Body surface area Derived from formula 2.00 m2 :25 Body temperature 96.8 f Heart Rate 71 /min Comments: Pattern: R egular Respiratory rate 18 /min Comments: Pattern: U nlabored O2 SAT 96 % Comments: Room air Systolic blood pressure 108 mm[Hg] Comments: Patien t Position: Sitting; Cuff Location: Left Arm; Cuff Size: Standard Diastolic blood pressure 64 mm[Hg] Comments: Patie nt Position: Sitting; Cuff Location: Left Arm; Cuff Size: Standard Weight 186.5 lb Body height 68 in Body mass index (BMI) [Ratio] 28.36 kg/m2 Body surface area Derived from formula 1.98 m2 :02 Body temperature 98 f Comments: Meth od: Oral Heart Rate 86 /min Comments: Pattern: R egular Respiratory rate 20 /min Comments: Pattern: U nlabored O2 SAT 95 % Comments: Room air Systolic blood pressure 130 mm[Hg] Comments: Patien t Position: Sitting; Cuff Location: Left Arm; Cuff Size: Standard Diastolic blood pressure 70 mm[Hg] Comments: Patie nt Position: Sitting; Cuff Location: Left Arm; Cuff Size: Standard Weight 182 lb Body height 68 in Body mass index (BMI) [Ratio] 27.67 kg/m2 Body surface area Derived from formula 1.96 m2 :20 Body temperature 97.4 f Heart Rate 87 /min Comments: Pattern: R egular Respiratory rate 18 /min Comments: Pattern: U nlabored O2 SAT 95 % Comments: Room air Systolic blood pressure 103 mm[Hg] Comments: Patien t Position: Sitting; Cuff Location: Left Arm; Cuff Size: Standard Diastolic blood pressure 72 mm[Hg] Comments: Patie nt Position: Sitting; Cuff Location: Left Arm; Cuff Size: Standard Weight 177 lb Body height 68 in Body mass index (BMI) [Ratio] 26.91 kg/m2 Body surface area Derived from formula 1.94 m2 :26 Body temperature 97.7 f Heart Rate 77 /min Comments: Pattern: R egular Respiratory rate 18 /min Comments: Pattern: U nlabored O2 SAT 91 % Comments: Room air Systolic blood pressure 127 mm[Hg] Comments: Patien t Position: Sitting; Cuff Location: Left Arm; Cuff Size: Standard Diastolic blood pressure 75 mm[Hg] Comments: Patie nt Position: Sitting; Cuff Location: Left Arm; Cuff Size: Standard Weight 182 lb Body height 68 in Body mass index (BMI) [Ratio] 27.67 kg/m2 Body surface area Derived from formula 1.96 m2 :59 Body temperature 98.1 f Heart Rate 73 /min Comments: Pattern: R egular Respiratory rate 18 /min Comments: Pattern: U nlabored O2 SAT 90 % Comments: Room air Systolic blood pressure 115 mm[Hg] Comments: Patien t Position: Sitting; Cuff Location: Left Arm; Cuff Size: Standard Diastolic blood pressure 74 mm[Hg] Comments: Patie nt Position: Sitting; Cuff Location: Left Arm; Cuff Size: Standard Weight 182 lb Body height 68 in Body mass index (BMI) [Ratio] 27.67 kg/m2 Body surface area Derived from formula 1.96 m2 :01 Body temperature 98.9 f Comments: Metho d: Temporal Heart Rate 89 /min Comments: Pattern: R egular Respiratory rate 20 /min Comments: Pattern: U nlabored O2 SAT 96 % Comments: Room air Systolic blood pressure 92 mm[Hg] Comments: Patien t Position: Sitting; Cuff Location: Left Arm; Cuff Size: Standard Diastolic blood pressure 68 mm[Hg] Comments: Patie nt Position: Sitting; Cuff Location: Left Arm; Cuff Size: Standard Weight 182 lb Body height 68 in Body mass index (BMI) [Ratio] 27.67 kg/m2 Body surface area Derived from formula 1.96 m2 :57 Body temperature 98.3 f Heart Rate 84 /min Comments: Pattern: R egular Respiratory rate 18 /min Comments: Pattern: U nlabored O2 SAT 93 % Comments: Room air Systolic blood pressure 115 mm[Hg] Comments: Patien t Position: Sitting; Cuff Location: Left Arm; Cuff Size: Standard Diastolic blood pressure 78 mm[Hg] Comments: Patie nt Position: Sitting; Cuff Location: Left Arm; Cuff Size: Standard Weight 182.5 lb Body height 68 in Body mass index (BMI) [Ratio] 27.75 kg/m2 Body surface area Derived from formula 1.97 m2 :50 Body temperature 99 f Comments: Metho d: Temporal Heart Rate 81 /min Comments: Pattern: R egular Respiratory rate 20 /min Comments: Pattern: U nlabored O2 SAT 96 % Comments: Room air Systolic blood pressure 107 mm[Hg] Comments: Patien t Position: Sitting; Cuff Location: Left Arm; Cuff Size: Standard Diastolic blood pressure 70 mm[Hg] Comments: Patie nt Position: Sitting; Cuff Location: Left Arm; Cuff Size: Standard Weight 182.5 lb Body height 68 in Body mass index (BMI) [Ratio] 27.75 kg/m2 Body surface area Derived from formula 1.97 m2 :14 Body temperature 97.6 f Comments: Metho d: Oral Heart Rate 79 /min Comments: Pattern: R egular Respiratory rate 20 /min Comments: Pattern: U nlabored O2 SAT 97 % Comments: Room air Systolic blood pressure 109 mm[Hg] Comments: Patien t Position: Sitting; Cuff Location: Left Arm; Cuff Size: Standard Diastolic blood pressure 75 mm[Hg] Comments: Patie nt Position: Sitting; Cuff Location: Left Arm; Cuff Size: Standard Weight 181.5 lb Body height 68 in Body mass index (BMI) [Ratio] 27.60 kg/m2 Body surface area Derived from formula 1.96 m2 :51 Body temperature 97.4 f Comments: Metho d: Oral Respiratory rate 20 /min Comments: Pattern: U nlabored O2 SAT 98 % Comments: Room air Systolic blood pressure 113 mm[Hg] Comments: Patien t Position: Sitting; Cuff Location: Left Arm; Cuff Size: Standard Diastolic blood pressure 80 mm[Hg] Comments: Patie nt Position: Sitting; Cuff Location: Left Arm; Cuff Size: Standard Weight 176.375 lb Body height 68 in Body mass index (BMI) [Ratio] 26.82 kg/m2 Body surface area Derived from formula 1.94 m2 :46 Body temperature 98.5 f Comments: Metho d: Temporal Heart Rate 66 /min Comments: Pattern: R egular Respiratory rate 20 /min Comments: Pattern: U nlabored O2 SAT 97 % Comments: Room air Systolic blood pressure 113 mm[Hg] Comments: Patien t Position: Sitting; Cuff Location: Left Arm; Cuff Size: Standard Diastolic blood pressure 67 mm[Hg] Comments: Patie nt Position: Sitting; Cuff Location: Left Arm; Cuff Size: Standard Weight 183 lb Body height 68 in Body mass index (BMI) [Ratio] 27.82 kg/m2 Body surface area Derived from formula 1.97 m2 :34 Body temperature 99 f Comments: Metho d: Temporal Heart Rate 68 /min Comments: Pattern: R egular Respiratory rate 20 /min Comments: Pattern: U nlabored O2 SAT 95 % Comments: Room air Systolic blood pressure 114 mm[Hg] Comments: Patien t Position: Sitting; Cuff Location: Left Arm; Cuff Size: Standard Diastolic blood pressure 74 mm[Hg] Comments: Patie nt Position: Sitting; Cuff Location: Left Arm; Cuff Size: Standard Weight 191 lb Body height 68 in Body mass index (BMI) [Ratio] 29.04 kg/m2 Body surface area Derived from formula 2.00 m2 :50 Body temperature 98.9 f Comments: Metho d: Temporal Heart Rate 64 /min Comments: Pattern: R egular Respiratory rate 20 /min Comments: Pattern: U nlabored O2 SAT 97 % Comments: Room air Systolic blood pressure 106 mm[Hg] Comments: Patien t Position: Sitting; Cuff Location: Left Arm; Cuff Size: Standard Diastolic blood pressure 68 mm[Hg] Comments: Patie nt Position: Sitting; Cuff Location: Left Arm; Cuff Size: Standard Weight 196 lb Body height 68 in Body mass index (BMI) [Ratio] 29.80 kg/m2 Body surface area Derived from formula 2.03 m2 :06 Body temperature 98.7 f Comments: Metho d: Temporal Heart Rate 70 /min Comments: Pattern: R egular Respiratory rate 20 /min Comments: Pattern: U nlabored O2 SAT 98 % Comments: Room air Systolic blood pressure 122 mm[Hg] Comments: Patien t Position: Sitting; Cuff Location: Left Arm; Cuff Size: Standard Diastolic blood pressure 71 mm[Hg] Comments: Patie nt Position: Sitting; Cuff Location: Left Arm; Cuff Size: Standard Weight 193 lb Body height 68 in Body mass index (BMI) [Ratio] 29.35 kg/m2 Body surface area Derived from formula 2.01 m2 :44 Body temperature 98.4 f Comments: Metho d: Tympanic Heart Rate 64 /min Comments: Pattern: R egular Respiratory rate 20 /min Comments: Pattern: U nlabored O2 SAT 97 % Comments: Room air Systolic blood pressure 103 mm[Hg] Comments: Patien t Position: Sitting; Cuff Location: Left Arm; Cuff Size: Standard Diastolic blood pressure 60 mm[Hg] Comments: Patie nt Position: Sitting; Cuff Location: Left Arm; Cuff Size: Standard Weight 194 lb Body height 68 in Body mass index (BMI) [Ratio] 29.50 kg/m2 Body surface area Derived from formula 2.02 m2 :04 Body temperature 98.8 f Comments: Metho d: Tympanic Heart Rate 64 /min Comments: Pattern: R egular Respiratory rate 20 /min Comments: Pattern: U nlabored O2 SAT 97 % Comments: Room air Systolic blood pressure 112 mm[Hg] Comments: Patien t Position: Sitting; Cuff Location: Left Arm; Cuff Size: Standard Diastolic blood pressure 74 mm[Hg] Comments: Patie nt Position: Sitting; Cuff Location: Left Arm; Cuff Size: Standard Weight 192 lb Body height 68 in Body mass index (BMI) [Ratio] 29.19 kg/m2 Body surface area Derived from formula 2.01 m2 :07 Body temperature 97.3 f Comments: Meth od: Oral Heart Rate 71 /min Comments: Pattern: R egular Respiratory rate 18 /min Comments: Pattern: U nlabored O2 SAT 93 % Comments: Room air Systolic blood pressure 120 mm[Hg] Comments: Patien t Position: Sitting; Cuff Location: Left Arm; Cuff Size: Standard Diastolic blood pressure 73 mm[Hg] Comments: Patie nt Position: Sitting; Cuff Location: Left Arm; Cuff Size: Standard Weight 195 lb Results Date Description Value Details :08 URINALYSIS, AUTOMATED W/O MICRO Comments : Urine collected clean catch for urinalysis.; Dr. Silva notified. ([id number]) UA - UROBILINOGEN 0.2 mg/dL (Normal) Comments: Lisa Silva notified. UA - APPEARANCE clear (Normal) Comments: Dr. Frederick notified. UA - BILIRUBIN Negative (Normal) Comments: Dr. Silva notified. UA - BLOOD Negative (Normal) Comments: Dr. Silva notified. UA - COLOR yellow (Normal) Comments: Dr. Frederick notified. UA - GLUCOSE Negative g/dL (Normal) Comments: Dr. Silva notified. UA - KETONES Negative mg/dL (Normal) Comments : Dr. Silva notified. UA - LEUKOCYTE ESTERASE Negative (Normal) Commen ts: Dr. Silva notified. UA - NITRITE Negative (Normal) Comments: Dr. Silva notified. UA - PH 6.0 (Normal) Comments: Dr. Frederick notified. UA - PROTEIN Negative mg/dL (Normal) Comments : Dr. Silva notified. UA - SPECIFIC GRAVITY >1.030 (Normal) Comments: Dr. Silva notified. :13 GLUCOSE FS* ([id number]) Comments: Collection of capillary blood from 3rd finger on right hand for Glucose finger stick check by Elizabeth Phelps LPN. Patient tolerated well.; Dr. Silva notified. GLUCOSE FS* 98 mg/dL (Normal) Range: 70 - 11 0 Comments: Dr. Frederick notified. Plan of Care Name Dates Details Instructions Hernia, Hiatal Start: 15-Oct-2021 Instruction Type: P atient Education Indication: Abdominal pain, periumbilical Smoking Counseling Education Start: 26-Aug-2021 Instructio n Type: Patient Education Indication: Tobacco use disorder Nicotine Dependence *: tobacco Start: 26-Aug-2021 Instruct ion Type: Patient Education Indication: Tobacco use disorder Nicotine Dependence *: tobacco Start: 20-Jul-2021 Instruct ion Type: Patient Education Indication: Weight loss, abnormal Smoking Counseling Education Start: 20-Jul-2021 Instructio n Type: Patient Education Indication: Weight loss, abnormal Nicotine Dependence *: tobacco Start: 10-Jul-2021 Instruct ion Type: Patient Education Indication: Cigarette smoker Smoking Counseling Education Start: 10-Jul-2021 Instructio n Type: Patient Education Indication: Cigarette smoker Smoking Counseling Education Start: 10-Apr-2021 Instructio n Type: Patient Education Indication: Encounter for monitoring opioid maintenance ther apy Smoking Counseling Education Start: 09-Jan-2021 Instructio n Type: Patient Education Indication: Tobacco abuse Planned Observations DRUG TEST PRSMV DIR OPT OBS ([id number])Indic ation: Encounter for monitoring opioid maintenance therapy On: :31 Request TESTOSTERONE TOTAL ([id number])Indication: Libido, decreased On: [id number]-Xkg-[id number] Request FOLIC ACID SERUM ([id number])Indication: Fatigue On: 0:36 Request VITAMIN B-12 (CYANOCOBALAMIN) ([id number])Indication: Fatigue On: 16-Vtr-487216:36 Request TSH (THYROID STIMULATING HORMONE) ([id number])Indication: F atigue On: :36 Request CMP ([id number])Indication: Fatigue On: :36 Request CBC, PLATELETS & AUT DIFF ([id number])Indication: Fatigue On: :36 Request DRUG TEST PRSMV DIR OPT OBS ([id number])Indic ation: Encounter for monitoring opioid maintenance therapy On: :09 Request DRUG TEST PRSMV DIR OPT OBS ([id number])Indication: Chronic back pain On: :27 Request VITAMIN B-12 (CYANOCOBALAMIN) ([id number])Indication: Fatigue On: :03 Request FOLIC ACID SERUM ([id number])Indication: Fatigue On: : 03 Request Vitamin D 25 Hydroxy ([id number])Indication: Fatigue On: 12-Nov-19 228:01 Request LIPID PANEL ([id number])Indication: Hepatitis-C On: :0 0 Request TSH (THYROID STIMULATING HORMONE) ([id number])Indication: Fatigue On: :57 Request PSA (PROSTATE SPECIFIC ANTIGEN) ([id number])Indication: Exc essive urination at night On: :57 Request Regalado ID Rapid Covid ([id number])Indication: COVID-19 ruled out On: :32 Request DRUG TEST PRSMV DIR OPT OBS ([id number])Indic ation: Encounter for monitoring opioid maintenance therapy On: :02 Request Comments: Urine nilo ected for drug screen. AIT Covid (Send out) ([id number])Indication: Reducible righ t inguinal hernia On: :38 Request CMP ([id number])Indication: Reducible right inguinal hernia On: :35 Request CBC, PLATELETS & AUT DIFF ([id number])Indication: Reducible right inguinal hernia On: :35 Request DRUG TEST PRSMV DIR OPT OBS ([id number])Indic ation: Encounter for monitoring opioid maintenance therapy On: :46 Request Comments: Urine nilo ected for drug screen. DRUG TEST PRSMV DIR OPT OBS ([id number])Indic ation: Encounter for monitoring opioid maintenance therapy On: :47 Request Comments: Urine nilo ected for drug screen. Vitamin D 25 Hydroxy ([id number])Indication: Fatigue On: 0219:23 Request VITAMIN B-12 (CYANOCOBALAMIN) ([id number])Indication: Fatigue On: :22 Request TSH (THYROID STIMULATING HORMONE) ([id number])Indication: F atigue On: :22 Request CMP ([id number])Indication: Fatigue On: :21 Request Comments: Venipunctu re to RIGHT AC on 09/26/2020 at 09:15AM by Elizabeth Phelps LPN. Patient tolerated well. DRUG TEST PRSMV DIR OPT OBS ([id number])Indic ation: Other [facility] (current) drug therapy On: :08 Request Comments: Urine nilo ected for drug screen. TSH (THYROID STIMULATING HORMONE) ([id number] )Indication: Abdominal pain, periumbilical On: 8-Sbk-620138:37 Request CMP ([id number])Indication: Abdominal pain, periumbilical On: 10:37 Request CBC, PLATELETS & AUT DIFF ([id number])Indication: Abdominal pain, periumbilical On: 1-Xaa-227534:35 Request Comments: Venipunctu re to RIGHT AC on 06/10/2020 at 10:15AM by Elizabeth Phelps LPN. Patient tolerated well. Planned Encounters Medical; Office Visit 20 - 3 month f/u - Med Refill (D S) On: 08-Oct-2022 9:20 [facility] [place] Shant Smith Planned Procedures PATIENT SCREENED FOR TOBACCO USE AND On: 06-Aug-2022 Int ent IDENTIFIED A TOBACCO USER (G9902)By: Danni Danielle SCREENING FOR TOBACCO USE (4004F)By: On: 06-Aug-2022 Int ent Danni Danielle PATIENT SCREENED FOR TOBACCO USE AND On: 23-Jul-2022 Int ent IDENTIFIED A TOBACCO USER (G9902)By: Danni Danielle SCREENING FOR TOBACCO USE (4004F)By: On: 23-Jul-2022 Int ent Danni Danielle PATIENT SCREENED FOR TOBACCO USE AND On: 20-Jul-2022 Int ent IDENTIFIED A TOBACCO USER (G9902)By: Danni Danielle SCREENING FOR TOBACCO USE (4004F)By: On: 20-Jul-2022 Int ent Danni Danielle PATIENT SCREENED FOR TOBACCO USE AND On: 09-Jul-2022 Int ent IDENTIFIED A TOBACCO USER (G9902)By: Danni Danielle SCREENING FOR TOBACCO USE (4004F)By: On: 09-Jul-2022 Int Danni Johnston X-RAY LEFT KNEE, 3 VIEWS ([id number])By: On: 23-Jun-2022 Inte nt Danni Danielle PATIENT SCREENED FOR TOBACCO USE AND On: 23-Jun-2022 Int ent IDENTIFIED A TOBACCO USER ([id number])By: Danni Danielle SCREENING FOR TOBACCO USE (4004F)By: On: 23-Jun-2022 Int Danni Johnston Trigger point of 1-2 ([id number])By: Ricardo On: 23-Jun-2022 In tent Shant S Comments: I injected the trigger point in the medial inferior side under the left scapula. PATIENT SCREENED FOR TOBACCO USE AND On: 26-May-2022 Int ent IDENTIFIED A TOBACCO USER (G9902)By: Danni Danielle SCREENING FOR TOBACCO USE (4004F)By: On: 26-May-2022 Int ent Danni Danielle PATIENT SCREENED FOR TOBACCO USE AND On: 17-May-2022 Int ent IDENTIFIED A TOBACCO NON-USER ([id number])By: Danni Danielle SCREENING FOR TOBACCO USE (4004F)By: On: 17-May-2022 Int ent Danni Danielle PATIENT SCREENED FOR TOBACCO USE AND On: 09-Apr-2022 Int ent IDENTIFIED A TOBACCO USER (G9902)By: Marisela Chavez SCREENING FOR TOBACCO USE (4004F)By: On: 09-Apr-2022 Int ent Marisela Chavez PATIENT SCREENED FOR TOBACCO USE AND On: 02-Mar-2022 Int ent IDENTIFIED A TOBACCO USER (G9902)By: Danni Danielle SCREENING FOR TOBACCO USE (4004F)By: On: 02-Mar-2022 Int ent Danni Danielle PATIENT SCREENED FOR TOBACCO USE AND On: 04-Jan-2022 Int ent IDENTIFIED A TOBACCO USER (G9902)By: Lisset Bagley SCREENING FOR TOBACCO USE (4004F)By: On: 04-Jan-2022 Int ent Lisset Bagley US DOPPLER CAROTID BILATERAL On: 18-Nov-2021 Intent ([id number])By: Shant Silva PATIENT SCREENED FOR TOBACCO USE AND On: 18-Nov-2021 Int ent IDENTIFIED A TOBACCO USER (G9902)By: Control Room Technician, System SCREENING FOR TOBACCO USE (4004F)By: On: 18-Nov-2021 Int ent Control Room Technician, System PATIENT SCREENED FOR TOBACCO USE AND On: 11-Nov-2021 Int ent IDENTIFIED A TOBACCO USER (G9902)By: Lisset Bagley SCREENING FOR TOBACCO USE (4004F)By: On: 11-Nov-2021 Int ent Lisset Bagley PATIENT SCREENED FOR TOBACCO USE AND On: 22-Oct-2021 Int ent IDENTIFIED A TOBACCO USER (G9902)By: Deepthi Mariano SCREENING FOR TOBACCO USE (4004F)By: On: 22-Oct-2021 Int ent Deepthi Mariano PATIENT SCREENED FOR TOBACCO USE AND On: 15-Oct-2021 Int ent IDENTIFIED A TOBACCO USER (G9902)By: Lisset Bagley SCREENING FOR TOBACCO USE (4004F)By: On: 15-Oct-2021 Int ent Lisset Bagley REPAIR INITIAL INGUINAL HERNIA, AGE 7 On: 10-Sep-2021 In tent YEARS OR OLDER; REDUCIBLE ([id number])By: Deepthi Mariano CXR PA & LAT ([id number])By: Wilber Vargas, On: 10-Sep-2021 Intent Enaldnuzhat PATIENT SCREENED FOR TOBACCO USE AND On: 10-Sep-2021 Int ent IDENTIFIED A TOBACCO USER (G9902)By: Deepthi Mariano SCREENING FOR TOBACCO USE (4004F)By: On: 10-Sep-2021 Int ent Deepthi Mariano TOBACCO USE COUNSELING FOR 3 TO 10 On: 26-Aug-2021 Inten t MINUTES ([id number])By: Shant Silva CXR PA & LAT ([id number])By: Shant Silva On: 10-Jul-2021 In tent S PATIENT IDENTIFIED A TOBACCO USER On: 10-Jul-2021 Int ent RECEIVED TOBACCO CESSATION INTERVENTION (COUNSELING AND/OR PHARMACOTHERAPY) ([id number])By: Shant Silva TOBACCO USE COUNSELING FOR 3 TO 10 On: 10-Jul-2021 Inten t MINUTES ([id number])By: Shant Silva VITAMIN B-12 1000 MCG ([id number])By: On: 13-Oct-2020 Intent Shant Silva US GALLBLADDER ([id number])By: Ricardo, On: 30-Jun-2020 Intent Shant Yap ACUTE ABDOMINAL SERIES ([id number])By: On: 16-Jun-2020 Intent Shant Silva COMPUTED TOMOGRAPHY OF ABDOMEN WITH On: 16-Jun-2020 Inte nt INTRAVENOUS AND ORAL CONTRAST ([id number])By: Shant Silva Instructions Name Dates Details Verified Opioid Agreement Start: 06-Aug-2022 Instruction T ype: Provider Instructions for Treatment Indication: Abdominal pain Follow Health Start: 06-Aug-2022 Instruction Type: P atient Education Indication: Abdominal pain How to Access Health Information Online using Patient Portal and [employer] Apps Start: 06-Aug-2022 Instruction Type: Patient Education Indication: Abdominal pain Verified Opioid Agreement Start: 23-Jul-2022 Instruction T ype: Provider Instructions for Treatment Indication: Follow-up exam Follow Health Start: 23-Jul-2022 Instruction Type: P atient Education Indication: Follow-up exam How to Access Health Information Online using Patient Portal and [employer] Apps Start: 23-Jul-2022 Instruction Type: Patient Education Indication: Follow-up exam Verified Opioid Agreement Start: 20-Jul-2022 Instruction T ype: Provider Instructions for Treatment Indication: Follow-up exam Follow Health Start: 20-Jul-2022 Instruction Type: P atient Education Indication: Follow-up exam How to Access Health Information Online using Patient Portal and [employer] Apps Start: 20-Jul-2022 Instruction Type: Patient Education Indication: Follow-up exam Verified Opioid Agreement Start: 09-Jul-2022 Instruction T ype: Provider Instructions for Treatment Indication: Encounter for monitoring opioid maintenance ther apy Follow Health Start: 09-Jul-2022 Instruction Type: P atient Education Indication: Encounter for monitoring opioid maintenance ther apy How to Access Health Information Online using Patient Portal and [employer] Apps Start: 09-Jul-2022 Instruction Type: Patient Education Indication: Encounter for monitoring opioid maintenance ther apy Verified Opioid Agreement Start: 23-Jun-2022 Instruction T ype: Provider Instructions for Treatment Indication: Shoulder pain Follow Health Start: 23-Jun-2022 Instruction Type: P atient Education Indication: Shoulder pain How to Access Health Information Online using Patient Portal and [employer] Apps Start: 23-Jun-2022 Instruction Type: Patient Education Indication: Shoulder pain Verified Opioid Agreement Start: 26-May-2022 Instruction T ype: Provider Instructions for Treatment Indication: Shoulder pain Follow Health Start: 26-May-2022 Instruction Type: P atient Education Indication: Shoulder pain How to Access Health Information Online using Patient Portal and [employer] Apps Start: 26-May-2022 Instruction Type: Patient Education Indication: Shoulder pain Verified Opioid Agreement Start: 17-May-2022 Instruction T ype: Provider Instructions for Treatment Indication: Abdominal pain Follow Health Start: 17-May-2022 Instruction Type: P atient Education Indication: Abdominal pain How to Access Health Information Online using Patient Portal and [employer] Apps Start: 17-May-2022 Instruction Type: Patient Education Indication: Abdominal pain Verified Opioid Agreement Start: 09-Apr-2022 Instruction T ype: Provider Instructions for Treatment Indication: Encounter for monitoring opioid maintenance ther apy Follow [facility] Start: 09-Apr-2022 Instruction Type: P atient Education Indication: Encounter for monitoring opioid maintenance ther apy How to Access Health Information Online using Patient [employer] and [employer] Apps Start: 09-Apr-2022 Instruction Type: Patient Education Indication: Encounter for monitoring opioid maintenance ther apy Verified Opioid Agreement Start: 02-Mar-2022 Instruction T ype: Provider Instructions for Treatment Indication: Aneurysm Follow [employer] Start: 02-Mar-2022 Instruction Type: P atient Education Indication: Aneurysm How to Access Health Information Online using Patient [employer] and [employer] Apps Start: 02-Mar-2022 Instruction Type: Patient Education Indication: Aneurysm PDMP site: Attempted Start: 03-Feb-2022 Instruction Type: Provider Instructions for Treatment Indication: Chronic back pain Verified Opioid Agreement Start: 08-Jan-2022 Instruction T ype: Provider Instructions for Treatment Indication: Chronic back pain Verified Opioid Agreement Start: 04-Jan-2022 Instruction T ype: Provider Instructions for Treatment Indication: Chronic back pain Follow [facility] Start: 04-Jan-2022 Instruction Type: P atient Education Indication: Chronic back pain How to Access Health Information Online using Patient Portal and [employer] Apps Start: 04-Jan-2022 Instruction Type: Patient Education Indication: Chronic back pain Verified Opioid Agreement Start: 10-Dec-2021 Instruction T ype: Provider Instructions for Treatment Indication: Chronic back pain Verified Opioid Agreement Start: 18-Nov-2021 Instruction T ype: Provider Instructions for Treatment Indication: Reducible right inguinal hernia Follow Health Start: 18-Nov-2021 Instruction Type: P atient Education Indication: Reducible right inguinal hernia How to Access Health Information Online using Patient Portal and [employer] Apps Start: 18-Nov-2021 Instruction Type: Patient Education Indication: Reducible right inguinal hernia Verified Opioid Agreement Start: 11-Nov-2021 Instruction T ype: Provider Instructions for Treatment Indication: Excessive urination at night Follow Health Start: 11-Nov-2021 Instruction Type: P atient Education Indication: Excessive urination at night How to Access Health Information Online using Patient [employer] and [employer] Apps Start: 11-Nov-2021 Instruction Type: Patient Education Indication: Excessive urination at night Verified Opioid Agreement Start: 22-Oct-2021 Instruction T ype: Provider Instructions for Treatment Indication: Status post right inguinal hernia repair, follow -up exam Follow [facility] Start: 22-Oct-2021 Instruction Type: P atient Education Indication: Status post right inguinal hernia repair, follow -up exam How to Access Health Information Online using Patient [employer] and [employer] Apps Start: 22-Oct-2021 Instruction Type: Patient Education Indication: Status post right inguinal hernia repair, follow -up exam Verified Opioid Agreement Start: 15-Oct-2021 Instruction T ype: Provider Instructions for Treatment Indication: Abdominal pain, periumbilical Follow Health Start: 15-Oct-2021 Instruction Type: P atient Education Indication: Abdominal pain, periumbilical How to Access Health Information Online using Patient [employer] and [employer] Apps Start: 15-Oct-2021 Instruction Type: Patient Education Indication: Abdominal pain, periumbilical Follow Health Start: 06-Oct-2021 Instruction Type: P atient Education Indication: Encounter for monitoring opioid maintenance ther apy How to Access Health Information Online using Patient Portal and [employer] Apps Start: 06-Oct-2021 Instruction Type: Patient Education Indication: Encounter for monitoring opioid maintenance ther apy Verified Opioid Agreement Start: 06-Oct-2021 Instruction T ype: Provider Instructions for Treatment Indication: Encounter for monitoring opioid maintenance ther apy Verified Opioid Agreement Start: 10-Sep-2021 Instruction T ype: Provider Instructions for Treatment Indication: Reducible right inguinal hernia Follow Health Start: 10-Sep-2021 Instruction Type: P atient Education Indication: Reducible right inguinal hernia How to Access Health Information Online using Patient Portal and [employer] Apps Start: 10-Sep-2021 Instruction Type: Patient Education Indication: Reducible right inguinal hernia Follow [facility] Start: 26-Aug-2021 Instruction Type: P atient Education Indication: Chronic back pain How to Access Health Information Online using Patient Portal and [employer] Apps Start: 26-Aug-2021 Instruction Type: Patient Education Indication: Chronic back pain Verified Opioid Agreement Start: 26-Aug-2021 Instruction T ype: Provider Instructions for Treatment Indication: Chronic back pain Follow My [facility] Start: 20-Jul-2021 Instruction Type: P atient Education Indication: Weight loss, abnormal How to Access Health Information Online using Patient Portal and [employer] Apps Start: 20-Jul-2021 Instruction Type: Patient Education Indication: Weight loss, abnormal Verified Opioid Agreement Start: 20-Jul-2021 Instruction T ype: Provider Instructions for Treatment Indication: Weight loss, abnormal Follow [facility] Start: 10-Jul-2021 Instruction Type: P atient Education Indication: Encounter for monitoring opioid maintenance ther apy How to Access Health Information Online using Patient [employer] and [employer] Apps Start: 10-Jul-2021 Instruction Type: Patient Education Indication: Encounter for monitoring opioid maintenance ther apy Verified Opioid Agreement Start: 10-Jul-2021 Instruction T ype: Provider Instructions for Treatment Indication: Encounter for monitoring opioid maintenance ther apy [facility] Start: 10-Apr-2021 Instruction Type: P atient Education Indication: Encounter for monitoring opioid maintenance ther apy How to Access Health Information Online using Patient [employer] and [employer] Apps Start: 10-Apr-2021 Instruction Type: Patient Education Indication: Encounter for monitoring opioid maintenance ther apy Verified Opioid Agreement Start: 10-Apr-2021 Instruction T ype: Provider Instructions for Treatment Indication: Encounter for monitoring opioid maintenance ther apy Verified Opioid Agreement Start: 09-Jan-2021 Instruction T ype: Provider Instructions for Treatment Indication: Tobacco abuse Follow [facility] Start: 09-Jan-2021 Instruction Type: P atient Education Indication: Tobacco abuse How to Access Health Information Online using Patient [employer] and [employer] Apps Start: 09-Jan-2021 Instruction Type: Patient Education Indication: Tobacco abuse Follow [facility] Start: 13-Oct-2020 Instruction Type: P atient Education Indication: Fatigue How to Access Health Information Online using Patient Portal and [employer] Apps Start: 13-Oct-2020 Instruction Type: Patient Education Indication: Fatigue Encounters Review On: 09-Aug-2022 8:54 [facility] Refill On: 06-Aug-2022 12:37 Encounter Diagnosis: Allergies End: 06-Aug-2022 12:40 [facility] Office Visit On: 06-Aug-2022 9:50 Encounter Reason: abdominal pain - Patie nt is here today with complaint of abdominal pain for the past 2 daysEncounter Diagnosis: Abdominal pain End: 06-Aug-2022 9:45 [facility] Office Visit On: 26-Jul-2022 14:17 Encounter Diagnosis: Left shoulder pain End: 26-Jul-20 15:12 [facility] Office Visit On: 23-Jul-2022 12:50 Encounter Reason: er follow up - Patient is here today for follow up from the ER for chest pains. Patient denies having any current chest pains.Encounter Diagnosis: Follow-up exam, CAD (coronary artery disease) End: 23-Jul-2022 12:56 [facility] Office Visit On: 20-Jul-2022 9:20 Encounter Reason: follow up - Patient is here for follow up from hospital stay. Patient states he had a heart attack and had stents placed in his heart.Encounter Diagnosis: Follow-up exam, Blood pressure abnormally low, CAD (coronary artery disease) End: 20-Jul-2022 9:23 [facility] Office Visit On: 09-Jul-2022 9:00 Encounter Diagnosis: Encounter for monit oring opioid maintenance therapy, Low testosterone in male, Left shoulder pain End: 09-Jul-2022 8:56 [facility] Office Visit On: 23-Jun-2022 9:50 Encounter Reason: follow up - Patient is here for 4 week follow up for right shoulder painEncounter Diagnosis: Shoulder pain, Chronic pain of left knee, Fatigue, Libido, decreased End: 23-Jun-2022 11:26 [facility] Office Visit On: 26-May-2022 15:00 Encounter Reason: shoulder - Patient is here today with complaint of pain under left shoulder blade. Patient states he was standing by his truck yesterday and had a sharp pain and now it hurts when he takes a deep breath or moves. End: 26-May-2022 15:17 Encounter Diagnosis: Shoulder pain, Back strain, initial encounter, Aortic aneurysm, thoracic [facility] Office Visit On: 17-May-2022 10:30 Encounter Reason: follow up - Pt is here this morning stating he was seen in the ER last night for abdominal pain.Encounter Diagnosis: Abdominal pain, Dilated intrahepatic bile duct, Aortic aneurysm, thoracic End: 17-May-2022 15:12 [facility] Office Visit On: 11-May-2022 11:18 Encounter Diagnosis: Chronic pain of left knee End: May-2022 12:59 [facility] Med Refill On: 15-Apr-2022 8:05 Encounter Diagnosis: COPD, severity to be determined E nd: 15-Apr-2022 8:07 [facility] Office Visit On: 09-Apr-2022 8:50 Encounter Reason: Follow Up - Date: (Mallorie hutchinson states his is here for a 3 month follow up. Patient states he has no complaints.). 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 Pt is here today for a follow up. He will need to do a UDS while in the office today. He state hsi pain level is a 5/10 i End: 04-Jan-2022 10:28 n the office. He has no drug allergies. Encounter Diag nosis: Chronic back [place] [facility] [place] On: 04-Jan-2022 9:30 Encounter Diagnosis: [place] of foot, COPD, severity to b e determined End: 04-Jan-2022 10:37 [facility] [place] On: 10-Dec-2021 16:27 Encounter Diagnosis: Chronic back pain End: 11-Dec-2021 9:22 [facility] Med Refill On: 24-Nov-2021 8:42 Encounter Diagnosis: High cholesterol, Vitamin D defic iency End: 24-Nov-2021 8:46 [facility] Office Visit On: 18-Nov-2021 11:00 Encounter Reason: Hernia - Pt states he had hernia surgery on 10/22/2021, has a lump at the surgical site, and wants it to be checked. Pt is concerned that he has another hernia. Encounter Diagnosis: Reducible right inguinal hernia, S/P herniorrhaphy End: 18-Nov-2021 12:11 , Near syncope, COPD exacerbation [facility] [place] On: 11-Nov-2021 9:45 Encounter Diagnosis: Chronic pain of left knee End: Nov-2021 9:46 [facility] [place] On: 11-Nov-2021 8:20 Encounter Reason: Nurse Visit - Pt is he re today for a nurse visit to have fasting lab work done. Pt tolerated it well and has no complaints. He has no allergies to medications. Encounter Diagnosis: Excessive urination at night, Fatigue, Hepatitis-C End: 11-Nov-2021 8:21 [facility] [place] On: 22-Oct-2021 13:20 Encounter Reason: Follow Up - Patient is here as F/U S/P hernia repair for staple removal. States the area is still sore but overall is doing well.Encounter Diagnosis: Status post right inguinal hernia repair, follow-up exam End: 22-Oct-2021 14:28 [facility] [place] Office Visit On: 15-Oct-2021 15:00 Encounter Reason: Follow Up - Current sy mptoms include other. Pt is here today for a follow up from hernia repair. Pt is in some pain and his pain level is a 8/10 but he has medications for that. He has no other complaints today. End: 15-Oct-2021 15:23 Encounter Diagnosis: Abdominal pain, per iumbilical, Status post right inguinal hernia repair, follow-up exam [facility] General Surgery Nurse Ordered Procedures/Labs On: 08-Oct-2021 15:24 Encounter Diagnosis: COVID-19 ruled out End: 15:35 [facility] Office Visit On: 06-Oct-2021 9:00 Encounter Reason: Follow Up - Note for " discuss consultation": Patient is in the office today for his 3 month follow up for medication refill and drug screen. Patient voices a pain level of 8 out of 10 at this time with End: 06-Oct-2021 9:43 back pain and left knee pain. Patient has no known drug allergies.Encounter Diagnosis: Encounter for monitoring opioid maintenance therapy, Chronic back pain [facility] [place] Visit On: 10-Sep-2021 15:40 Encounter Reason: Consultation - Patient is here today for consultation on right inguinal hernia. States hernia has been there for the past month. Encounter Diagnosis: Reducible right inguinal hernia End: 10-Sep-2021 17:38 [facility] General Surgery Office Visit On: 10-Sep-2021 14:43 Encounter Diagnosis: Chronic back pain End: 10-Sep-2021 14:45 [facility] Office Visit On: 26-Aug-2021 9:00 Encounter Diagnosis: Chronic back pain, Tobacco use disorder, Excessive urination at night, Polyuria, Inguinal hernia, right, Urge incontinence End: 26-Aug-2021 9:31 [facility] [place] Visit On: 10-Aug-2021 13:05 Encounter Diagnosis: Chronic back pain End: 10-Aug-2021 13:15 [facility] [place] Visit On: 20-Jul-2021 9:20 Encounter Reason: Follow Up - Note for " discuss consultation": Patient is in the office today for a 10 day follow up on chest xray results. Patient has no known drug allergies.Encounter Diagnosis: Weight loss, abnormal, COPD exacerbation End: 20-Jul-2021 9:41 [facility] [place] Visit On: 10-Jul-2021 9:00 Encounter Reason: Follow Up - Note for " discuss consultation": Patient is in the office today for his 3 month follow up for medication refill and drug screen. Patient has tested Negative for his Hydrocodone the last 2 End: 10-Jul-2021 9:21 drug screens. Patient voices a pain lev el of 7 out of 10 at this time with back pain and left knee pain. Patient did not bring his medication bottle with him to visit today. Reminded patient to bring h is medication bottle to every visit per Pain Management Agreement that a copy is given to him every visit. Patient has no known drug allergies.Encounter Diagnosis: Cigarette smoker, Encounter for monitoring opioid maintenance therapy, Chronic pain of left knee, Sinusitis, acute, Weight lo ss, abnormal [facility] Office Visit On: 25-May-2021 8:29 Encounter Diagnosis: Chronic back pain, Chronic pain of left knee, COPD exacerbation End: 25-May-2021 8:44 [facility] Office Visit On: 10-Apr-2021 8:42 Encounter Reason: Follow Up - Note for " discuss consultation": Patient is in the office today for his 3 month follow up for medication refills and drug screen. Patient voices a pain level of 7 out of 10 at this time wit End: 10-Apr-2021 9:07 h back pain and left knee pain. Amanuel kincaid has no known drug allergies.Encounter Diagnosis: Encounter for monitoring opioid maintenance therapy, Chronic pain of left knee, Chronic back pain [facility] Office Visit On: 25-Mar-2021 8:12 Encounter Diagnosis: Chronic pain of left knee End: 8:15 [facility] Office Visit On: 09-Jan-2021 9:30 Encounter Reason: Follow Up - Note for " discuss consultation": Patient is in the office today for his 3 month follow up for smoking, back pain, and fatigue. Patient voices a pain level of 7 out of 10 at this time with b End: 09-Jan-2021 9:52 ilateral knee and elbow pain. Patient has no known drug allergies.Encounter Diagnosis: Tobacco abuse, Chronic back pain, Chronic pain of left knee [facility] Office Visit On: 13-Oct-2020 9:35 Encounter Reason: Follow Up - Note for " discuss consultation": Patient is in the office today to go over lab work and B12 injection. Patient voices a pain level of 7 out of 10 at this time with back pain. Patient has no known drug allergies. End: 13-Oct-2020 11:14 [facility]: 26-Sep-2020 8:34 Encounter Reason: Follow Up - Note for " discuss consultation": Patient is in the office today has not been seen since June 2020. Patient c/o stomach sensitivity and back pain. Patient voices a pain level of 8 out of End: 26-Sep-2020 9:54 10 at this time with back pain. Patient states "I smoke my pot for pain." Patient also states he had his gallbladder removed in [place] by Dr. Bermudez. 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, Fatigue, Tobacco abuse, Chronic back pain [facility] Office Visit On: 30-Jun-2020 15:25 Encounter Diagnosis: Abdominal pain, Common bile duct dilatation End: 30-Jun-2020 15:47 [facility] Office Visit On: 27-Jun-2020 11:42 Encounter Diagnosis: Abdominal pain End: 27-Jun-2020 1 1:47 [facility] Medication Prescribed On: 26-Jun-2020 8:34 Encounter Diagnosis: Food poisoning, bacterial End: 8:38 [facility] [place] Ordered Procedures/Labs On: 16-Jun-2020 17:44 Encounter Diagnosis: Abdominal pain End: 16-Jun-2020 1 7:56 [facility] Office Visit On: 16-Jun-2020 9:40 Encounter Diagnosis: Abdominal pain End: 16-Jun-2020 1 1:20 [facility] Office Visit On: 13-Jun-2020 12:28 Encounter Diagnosis: Abdominal pain, periumbilical End : 13-Jun-2020 12:35 [facility] Office Visit On: 10-Jun-2020 9:59 Encounter Reason: Fatigue - The onset of the fatigue has been gradual and has been occurring in a persistent pattern for 3 weeks. The course has been increasing. The fatigue occurs all the time and interferes with normal End: 10-Jun-2020 10:51 daily activities. The symptoms have bee n associated with abdominal pain (c/o stomach hurting when he eats so he has not been eating right.). Note for "Fatigue": Patient is in the office today stating h keaton is still not feeling well after his la st visit on 06/02/2020. Patient states his cough is better but his is still feeling fatigued x 3 weeks now and c/o stomach hurting when he eats so he is not eating like he is suppose to.Encounter Diagnosis: Abdominal pain, periumbilical [facility] Office Visit On: 02-Jun-2020 11:11 Encounter Reason: weakness, fatigue - Pt presents today with c/o weakness, fatigue, tiring easily, no strength x 1 week. States he has a hx of asthma, emphysema, and copd. Pt says he has not been feeling like himself.Encounter Diagnosis: End: 05-Jun-2020 10:03 COPD exacerbation [facility] Payers United HealthcareMedicaidJohn Black; marla guarantor
[2022-08-09] MEDS: ZESTRIL TAB 5 MG PO SCH (10:05)
[2022-08-09] MEDS: MAGNESIUM SULFATE 1 GRAM/100 mL PREMIX 1 G/100 ML BAG IV PRN ×2 (11:20→12:48)
[2022-08-09] MEDS ORDERED: STERILE WATER IRRIGATION IR ONE (15:19)
--- NOTE | 2022-08-09 16:53 | US ---
HISTORYReason For StudySTUDYGALL BLADDERCOMPARISONNoneTECHNIQUEMultiple jackson scale and color flow Doppler images of the right upper quadrant were obtained.FINDINGSThe liver is normal in echotexture and size . No focal intraparenchymal mass or intrahepatic biliary ductal dilatation can be observed. The gallbladder is surgically absent. The common bile duct is unremarkable measuring 3 mm in width.The right kidney appears normal in size without focal parenchymal mass or nephrolithiasis. The right kidney measurers 12 cm in length. No hydronephrosis or perirenal fluid can be observed. The pancreatic head and body are unremarkable. The pancreatic tail is largely obscured by overlying bowel gas.IMPRESSIONUnremarkable examination of the right upper quadrant.Electronically signed by: MELINDA LEE (Aug 09, 2022 16:52:25)
[2022-08-09] MEDS: LIPITOR TAB 80 MG PO SCH (20:12)
[2022-08-10 06:02] LABS: BASOPHILS # (AUTO) 0.1 X10^3/uL (0.0-0.1); BASOPHILS % (AUTO) 0.5 % (0.2-1.0); EOSINOPHILS # (AUTO) 0.3 x10^3/uL (0.0-0.2); EOSINOPHILS % (AUTO) 2.3 % (0.9-2.9); HEMATOCRIT 51.3 % (42.0-54.0); HEMOGLOBIN 17.4 g/dL (13.5-18.0); LYMPHOCYTES # (AUTO) 3.2 X10^3/uL (1.3-2.9); LYMPHOCYTES % (AUTO) 26.9 % (21.0-51.0); MEAN CORPUSCULAR HEMOGLOBIN 30.7 pg (27.0-34.0); MEAN CORPUSCULAR HGB CONC 33.9 g/dL (33.0-35.0); MEAN CORPUSCULAR VOLUME 90.5 fL (80.0-100.0); MEAN PLATELET VOLUME 8.2 fL (7.4-11.0); MONOCYTES # (AUTO) 1.2 x10^3/uL (0.3-0.8); MONOCYTES % (AUTO) 10.2 % (0.0-13.0); NEUTROPHILS # (AUTO) 7.3 x10^3/uL (2.2-4.8); NEUTROPHILS % (AUTO) 60.1 % (42.0-75.0); RED BLOOD COUNT 5.66 X10^6/uL (4.7-6.0); RED CELL DISTRIBUTION WIDTH 14.2 % (11.6-16.5); WHITE BLOOD COUNT 12.1 X10^3/uL (3.6-10.0)
[2022-08-10 06:09] LABS: ALANINE AMINOTRANSFERASE 23 Units/L (12-78); ALBUMIN 3.8 g/dL (3.4-5.0); ALKALINE PHOSPHATASE 71 Units/L (46-116); ASPARTATE AMINO TRANSFERASE 19 Units/L (15-37); BLOOD UREA NITROGEN 9 mg/dL (7-18); CALCIUM 8.4 mg/dL (8.5-10.1); CARBON DIOXIDE 32.5 mmol/L (21-32); CHLORIDE 102 mmol/L (98-107); CREATININE 0.99 mg/dL (0.70-1.30); MAGNESIUM 1.9 mg/dL (2.0-2.9); SODIUM 140 mmol/L (136-145); TOTAL PROTEIN 7.3 g/dL (6.4-8.2); eGFR NON BLACK RACES > 60 (>60)
[2022-08-10] MEDS: PULMICORT NEB TX 0.5 MG NEB SCH (08:48)
[2022-08-10] MEDS: MAGNESIUM SULFATE 1 GRAM/100 mL PREMIX 1 G/100 ML BAG IV PRN ×2 (08:54→11:04)
[2022-08-10] MEDS ORDERED: XYLOCAINE 2 % (PLAIN) ONE ×2 (09:33)
[2022-08-10] MEDS ORDERED: DIPRIVAN VIAL 20 ML ONE (09:33)
[2022-08-10] MEDS ORDERED: NS 1,000 ML IV 1,000 ML ONE (09:41)
[2022-08-10] MEDS: PLAVIX PO SCH (10:18)
[2022-08-10] MEDS: ASPIRIN 81 MG CHEWTAB PO SCH (10:18)
[2022-08-10] MEDS: COREG TAB 6.25 MG PO SCH (10:21)
[2022-08-10] MEDS: PROTONIX TAB 40 MG PO SCH (10:21)
[2022-08-10] MEDS: ZESTRIL TAB 5 MG PO SCH (10:21)
[2022-08-10 11:17] VITALS: BP 105/67
== END 2022-08-10 12:43 | disposition home or self-care (01) ==
LOC: MED/SURG 10:23 → ER 10:23 → MED/SURG 17:31
PROVIDERS: ADMIT Family Medicine; ATTEND Family Medicine
DX: E78.2 Mixed hyperlipidemia; K29.80 Duodenitis without bleeding; R10.11 Right upper quadrant pain; I25.10 Atherosclerotic heart disease of native coronary artery without angina pectoris; R06.02 Shortness of breath; J44.9 Chronic obstructive pulmonary disease, unspecified; K44.9 Diaphragmatic hernia without obstruction or gangrene; R07.89 Other chest pain; I10 Essential (primary) hypertension; R10.13 Epigastric pain; K21.9 Gastro-esophageal reflux disease without esophagitis; I95.89 Other hypotension

== ENCOUNTER 2022-09-21 09:04 | Inpatient (IN) ==
[2022-09-21 09:13] VITALS: BMI 29.9
--- NOTE | 2022-09-21 09:25 | DR.ABDMALE ---
HPI Time seen Time Seen by Provider: 09/21/22 09:23 PCP Primary Care Physician: Complaint Chief Complaint Doctors Comments: 62 y/o male presents for evaluation. Underwent colonoscopy yesterday. Had a polyp removed. Awoke early this am, + bloody bowel movement. Has had several since, > 5. + diffuse abdominal pain - sharp, steady, radiates to the back. + worse with palpation, moving. Nothing makes it better. + lightheaded with standing, walking. Not on blood thinning meds. Denies recent illness. Chief Complaint:: PT STATES HAD A COLONOSCOPY DONE YESTERDAY AT [facility] POLYP WAS REMOVED. 2AM THIS MORNING HE WAS POOPING BLOOD AND BLOOD CLOTS AND HASNT STOPPED SINCE. LOWER ABDOMINAL PAIN SINCE LAST NIGHT. Self Treatment fo Chief Complaint: PT SLEEPS WITH CPAP MACHINE. COVID-19 Coronavirus risk:travel/contact w/high risk person: No Has patient experienced Coronavirus symptoms: No Reviewed Nurses Notes Review: Yes Source History provided by:: Patient Mode of arrival Mode of Arrival: Ambulatory Timing Onset of Chief Complaint: 09/21/22 PMH PMH Past Medical History: Yes Past Medical History: COPD Past Surgical History: Yes Surgical History: Ortho Surgery and Other Past Surgical History Comment: STENT PLACED, BACK SURGERY, BILATERAL WRIST, HERNIA REPAIR Family History History of Family Medical Conditions: Yes Family Medical History: Diabetes Mellitus, Cancer, [place], Coronary Artery Disease, Heart Failure and Hypertension Social History Does patient currently use any type of tobacco product: Yes Have you used tobacco products in the last 12 months: Yes Type of Tobacco Use: Cigarettes Does any household member use tobacco: No Alcohol Use: None Do you use any recreational Drugs:: No Lives With: Spouse Lives Where: Home Travel Risk Coronavirus risk:travel/contact w/high risk person: No Has patient experienced Coronavirus symptoms: No Infectious screening In the last 2 months have you had wt loss of >10#?: NO Have you had fever, night sweats or hemotysis?: No Have you traveled outside the country in the last 6 months?: No Isolation: Standard ROS Review of Systems Constitutional: Weakness Eyes: No Symptoms Reported ENTM: No Symptoms Reported Respiratoy: No Symptoms Reported Cardiovascular: No Symptoms Reported Gastrointestinal/Abdominal: See HPI Genitourinary: No Symptoms Reported Neurological: Dizziness Musculoskeletal: No Symptoms Reported Integumentary: No Symptoms Reported Hematologic/Lymphatic: No Symptoms Reported Psychiatric: No Symptoms Reported All Other Systems: Reviewed and Negative PE Vital Signs Vital Signs: Temp Pulse Resp BP BP BP Pulse Ox 09/21/22 11:55 22 09/21/22 11:15 16 09/21/22 11:15 81 94 L 09/21/22 11:02 80 93 L 09/21/22 10:57 83 94 L 09/21/22 10:55 122/66 09/21/22 10:45 18 09/21/22 10:48 116/70 09/21/22 10:18 83 L 09/21/22 10:15 80 81 L 09/21/22 10:05 135/105 09/21/22 10:03 85 89 L 09/21/22 10:00 84 89 L 09/21/22 09:50 85 L 09/21/22 09:38 132/84 09/21/22 09:35 20 132/84 09/21/22 09:05 99.1 F 92 H 20 125/73 95 09/20/22 13:04 147/83 08/10/22 11:10 105/67 08/10/22 08:48 08/10/22 03:47 108/63 O2 Del Method FiO2 09/21/22 11:55 09/21/22 11:15 09/21/22 11:15 Room Air 09/21/22 11:02 09/21/22 10:57 09/21/22 10:55 09/21/22 10:45 09/21/22 10:48 09/21/22 10:18 09/21/22 10:15 09/21/22 10:05 09/21/22 10:03 09/21/22 10:00 09/21/22 09:50 09/21/22 09:38 09/21/22 09:35 09/21/22 09:05 Room Air 09/20/22 13:04 08/10/22 11:10 08/10/22 08:48 28 08/10/22 03:47 General General Appearance: Alert and In No Apparent Distress Eyes Eye exam: PERRL and EOMI ENT ENT Exam: Normal Oropharynx and Mucous Membranes Moist Neck Neck Exam: Normal Inspection Respiratory Respiratory Exam: Normal Lung Sounds Bilat; negative Accessory Muscle Use or Respiratory Distress Cardiovascular Cardiovascular Exam: Regular Rate, Normal Rhythm and Normal Heart Sounds Abdominal Exam Abdominal Exam: Soft and Tenderness (all quadrants, with guarding and degree of rebound, + diminished bowel sounds.) Back Back Exam: Normal Inspection Extremeties Extremities Exam: Normal Inspection and Full ROM; negative Edema Neurologic Neurological Exam: Alert, Oriented X3 and CN II-XII Intact; negative Motor Sensory Deficit Skin Skin Exam: Warm and Dry COURSE Treatment Treatment: 62 y/o male with rectal bleeding after colonscopy yesterday. + diffuse abdominal pain. W/u initiated. Acute abd series without obvious free air, no worrisome pattern. WBC elevated to 29K, with left shift. Good H/H (is a smoker). Will obtain lactic acid, blood cultures, cover with IV levaquin. Will obtain CT abd/pelvis. 1117 - [employer] pending, notified Dr Wilson (scoped pt yesterday), he will come and see the pt. CT abd/pelvis - c/w acute colitis of the descending colon. Dr Wilson came and consulted. Will admit to his attending, Dr Silva. Discussed with Dr Silva, accepts the admission. [facility] Labs Reviewed Result Diagrams: 09/21/22 09:36 09/21/22 09:36 Laboratory: WBC 29.2 X10^3/uL (3.6-10.0) H 09/21/22 09:36 RBC 6.14 X10^6/uL (4.7-6.0) H 09/21/22 09:36 Hgb 18.6 g/dL (13.5-18.0) H 09/21/22 09:36 Hct 54.8 % (42.0-54.0) H 09/21/22 09:36 MCV 89.1 fL (80.0-100.0) 09/21/22 09:36 MCH 30.2 pg (27.0-34.0) 09/21/22 09:36 MCHC 33.9 g/dL (33.0-35.0) 09/21/22 09:36 RDW 13.9 % (11.6-16.5) 09/21/22 09:36 Plt Count 259 X10^3/uL (150.0-450.0) 09/21/22 09:36 Plt Count Comment Adequate (ADEQUATE) 09/21/22 09:36 MPV 8.4 fL (7.4-11.0) 09/21/22 09:36 Neut % (Auto) 82.3 % (42.0-75.0) H 09/21/22 09:36 Lymph % (Auto) 6.8 % (21.0-51.0) L 09/21/22 09:36 [place] % (Auto) 10.4 % (0.0-13.0) 09/21/22 09:36 Eos % (Auto) 0.4 % (0.9-2.9) L 09/21/22 09:36 Baso % (Auto) 0.1 % (0.2-1.0) L 09/21/22 09:36 Neut # (Auto) 24.0 x10^3/uL (2.2-4.8) H 09/21/22 09:36 Lymph # (Auto) 2.0 X10^3/uL (1.3-2.9) 09/21/22 09:36 [place] # (Auto) 3.0 x10^3/uL (0.3-0.8) H 09/21/22 09:36 Eos # (Auto) 0.1 x10^3/uL (0.0-0.2) 09/21/22 09:36 Baso # (Auto) 0.0 X10^3/uL (0.0-0.1) 09/21/22 09:36 Absolute Nucleated RBC 0.0 /100WBC 09/21/22 09:36 Total Counted 100 09/21/22 09:36 Neutrophils % (Manual) 81 % (39-76) H 09/21/22 09:36 Band Neutrophils % 9 % (0-10) 09/21/22 09:36 Lymphocytes % (Manual) 4 % (13-43) L 09/21/22 09:36 Monocytes % (Manual) 6 % (4-9) 09/21/22 09:36 Plt Morphology Comment Normal (NORMAL) 09/21/22 09:36 RBC Morphology Normal (NORMAL) 09/21/22 09:36 PT 13.9 SECONDS (11.8-14.3) 09/21/22 09:36 INR Target Range - 09/21/22 09:36 INR 1.11 (0.8-1.3) 09/21/22 09:36 APTT 35.6 SECONDS (22.9-36.5) 09/21/22 09:36 PTT Comment - 09/21/22 09:36 Sodium 140 mmol/L (136-145) 09/21/22 09:36 Corrected Sodium 141 mmol/L (136-145) 09/21/22 09:36 Potassium 3.9 mmol/L (3.5-5.1) 09/21/22 09:36 Chloride 104 mmol/L (98-107) 09/21/22 09:36 Carbon Dioxide 26.6 mmol/L (21-32) 09/21/22 09:36 BUN 11 mg/dL (7-18) 09/21/22 09:36 Creatinine 1.00 mg/dL (0.70-1.30) 09/21/22 09:36 Est GFR (MDRD) Af Amer > 60 (>60) 09/21/22 09:36 Est GFR (MDRD) Non-Af > 60 (>60) 09/21/22 09:36 Glucose 129 mg/dL (65-99) H 09/21/22 09:36 Lactic Acid 1.3 mmol/L (0.4-2.0) 09/21/22 10:35 Calcium 9.0 mg/dL (8.5-10.1) 09/21/22 09:36 Corrected Calcium TNP 09/21/22 09:36 Total Bilirubin 0.70 mg/dL (0.2-1.0) 09/21/22 09:36 AST 18 Units/L (15-37) 09/21/22 09:36 ALT 25 Units/L (12-78) 09/21/22 09:36 Alkaline Phosphatase 74 Units/L (46-116) 09/21/22 09:36 Total Protein 7.5 g/dL (6.4-8.2) 09/21/22 09:36 Albumin 3.9 g/dL (3.4-5.0) 09/21/22 09:36 Globulin 3.6 g/dL (2.5-4.5) 09/21/22 09:36 Albumin/Globulin Ratio 1.1 Ratio (1.1-2.1) 09/21/22 09:36 Lipase 68 Units/L (73-393) L 09/21/22 09:36 Blood Type A POSITIVE 09/21/22 09:36 Antibody Screen Negative 09/21/22 09:36 Opioid Opioid Risk Tool Age (Lexa box if 16-45): No History of Preadolescent Sexual Abuse: No Total: 0 Total Score Risk Category: Low Risk Copyright: [facility] predicting aberrant behaviors Discharge Plan Discharge Plan Patient Disposition: 09 ADMITTED INPATIENT Condition: Stable Prescriptions: No Action atorvastatin 80 mg Tablet 80 mg PO HS carvedilol [Coreg] 6.25 mg Tablet 6.25 mg PO BID clopidogrel [Plavix] 75 mg Tablet 75 mg PO DAILY pantoprazole 40 mg Tablet,Delayed Release (Dr/Ec) 40 mg PO DAILY aspirin 81 mg Tablet,Chewable 81 mg PO DAILY lisinopril 2.5 mg Tablet 5 mg PO DAILY carisoprodol [Soma] 350 mg tablet 350 mg PO BID fluticasone propion-salmeterol 250-50 mcg/dose blister with device 1 inh INHALATION DAILY cetirizine 10 mg tablet 10 mg PO DAILY ketorolac 10 mg tablet 10 mg PO TID PRN (Reason: Pain) oxycodone-acetaminophen [Percocet] 10-325 mg tablet 1 tab PO 4XD nitroglycerin 0.4 mg tablet, sublingual 0.4 mg sublingual PRN PRN (Reason: Chest Pain) testosterone cypionate 200 mg/mL oil 200 mg IM WEEKLY albuterol sulfate [ProAir HFA] 90 mcg/actuation HFA aerosol inhaler 1 inh INHALATION PRN PRN (Reason: asthma) cholecalciferol (vitamin D3) 75 mcg (3,000 unit) tablet 75 mcg PO DAILY sucralfate [Carafate] 1 gram Tablet 1 g PO TID Qty: 60 0RF pantoprazole [Protonix] 40 mg Tablet,Delayed Release (Dr/Ec) 40 mg PO BID Qty: 60 0RF Health Concerns: Post Hospitalization: new medications and changes needed to prevent readmission or further decline. Pt educated and given instructions on all concerns. Plan of Treatment: Continue with present treatment and follow up plan. Pt is to keep follow up appointment as instructed and take medications as ordered. Orders to Discharge Patient Discharge Orders: Transfer (Routine); Ordered 09/21/22 Ordered By: Immanuel Razo Follow ups/Referrals Follow ups/Referrals: BLADE SILVA [Primary Care Provider] - 3 days
[2022-09-21] MEDS ORDERED: NS 1,000 ML IV 1,000 ML ONE (09:26)
[2022-09-21] MEDS ORDERED: NS 1,000 ML IV 1,000 ML IV ONE (09:28)
[2022-09-21 09:48] LABS: BASOPHILS % (AUTO) 0.1 % (0.2-1.0); EOSINOPHILS # (AUTO) 0.1 x10^3/uL (0.0-0.2); EOSINOPHILS % (AUTO) 0.4 % (0.9-2.9); HEMATOCRIT 54.8 % (42.0-54.0); HEMOGLOBIN 18.6 g/dL (13.5-18.0); LYMPHOCYTES % (AUTO) 6.8 % (21.0-51.0); MEAN CORPUSCULAR HEMOGLOBIN 30.2 pg (27.0-34.0); MEAN CORPUSCULAR HGB CONC 33.9 g/dL (33.0-35.0); MEAN CORPUSCULAR VOLUME 89.1 fL (80.0-100.0); MEAN PLATELET VOLUME 8.4 fL (7.4-11.0); MONOCYTES % (AUTO) 10.4 % (0.0-13.0); NEUTROPHILS % (AUTO) 82.3 % (42.0-75.0); RED BLOOD COUNT 6.14 X10^6/uL (4.7-6.0); RED CELL DISTRIBUTION WIDTH 13.9 % (11.6-16.5); WHITE BLOOD COUNT 29.2 X10^3/uL (3.6-10.0)
[2022-09-21 09:56] LABS: INR 1.11 (0.8-1.3)
[2022-09-21 09:59] LABS: ALANINE AMINOTRANSFERASE 25 Units/L (12-78); ALBUMIN 3.9 g/dL (3.4-5.0); ALKALINE PHOSPHATASE 74 Units/L (46-116); ASPARTATE AMINO TRANSFERASE 18 Units/L (15-37); BLOOD UREA NITROGEN 11 mg/dL (7-18); CARBON DIOXIDE 26.6 mmol/L (21-32); CHLORIDE 104 mmol/L (98-107); COR NA(FOR HYPERGLY) 141 mmol/L (136-145); LIPASE 68 Units/L (73-393); SODIUM 140 mmol/L (136-145); TOTAL PROTEIN 7.5 g/dL (6.4-8.2); eGFR NON BLACK RACES > 60 (>60)
[2022-09-21 10:08] LABS: BAND NEUTROPHILS % 9 % (0-10); PLATELET MORPHOLOGY COMMENT NORMAL (NORMAL)
[2022-09-21] MEDS ORDERED: LEVAQUIN PREMIX IV 750 MG 750 MG/150 ML BAG IV ONE ×2 (10:11→10:17)
[2022-09-21] MEDS ORDERED: MORPHINE SULFATE INJ 4 MG IVP ONE ×2 (10:12→11:50)
[2022-09-21] MEDS ORDERED: ZOFRAN INJ 4 MG VIAL IVP ONE (10:12)
[2022-09-21] MEDS ORDERED: ZOFRAN INJ 4 MG VIAL ONE (10:17)
[2022-09-21] MEDS ORDERED: MORPHINE SULFATE INJ 4 MG ONE ×2 (10:17→11:55)
--- NOTE | 2022-09-21 11:15 | CT ---
HISTORYDIFFUSE ABD PAIN, S/P COLONOSCOPY YESTERDAYSTUDYABDOMEN/PELVIS W/O CONCOMPARISONCT abdomen and pelvis 05/16/2022TECHNIQUEMultiple CT axial images of the abdomen and pelvis were obtained without IV contrast. Coronal and sagittal images were reconstructed. Dose reduction techniques included Automated Exposure Control (AEC) and adjustment of mA and kV.FINDINGSThe colon has wall thickening and edema consistent with nonspecific colitis. This extends from the mid transverse colon to the lower descending colon. There are no diverticula in this region. No pneumoperitoneum. No bowel obstruction.A normal appendix is not identified. But there is no inflammation around the cecum or at the expected location of the appendix.The lung bases are clear. Heart size is normal. Atherosclerotic calcification is present in the coronary arteries.The liver is normal in size and configuration. Surgical clips are present in the gallbladder fossa from a cholecystectomy. The spleen is normal in size and shape.The adrenal glands are normal. The pancreas is normal.No abnormal calcifications are present in the kidneys, ureters, or urinary bladder.The kidneys have normal size and shape. There is no hydronephrosis or significant perirenal edema. The bladder is normally distended. It has no wall thickening or perivesical edema.Degenerative changes are present in the spine. Fixation hardware traverses the lumbosacral spine.IMPRESSION1. Findings consistent with nonspecific left-sided colitis2. No pneumoperitoneum or bowel obstructionElectronically signed by: Maxwell Gary (Sep 21, 2022 11:13:31)
[2022-09-21] MEDS ORDERED: FLAGYL IV PREMIX 500 MG BAG 500 MG/100 ML BAG IV ONE ×2 (11:50→11:55)
[2022-09-21] MEDS ORDERED: ZOFRAN INJ 4 MG VIAL IVP PRN (14:17)
[2022-09-21] MEDS ORDERED: DILAUDID INJ IVP PRN (14:17)
--- NOTE | 2022-09-21 15:50 | DR.H&P ---
H&P History & Physical for Day of: H&P Date: 09/21/22 Chief Complaint Chief Complaint: Hematochezia with abdominal pain Allergies Allergies Allergy/AdvReac Type Severity Reaction Status Date / Time No Known Drug Allergies Allergy Verified 07/22/22 00:06 No Known Food Allergies Allergy Verified 08/09/22 09:28 History of Present Illness History of Present Illness: This is a pleasant 62-year-old white male well-known to me. He underwent a colonoscopy yesterday and a polypectomy. This past night he woke up about 2:00 in the morning and had a bowel movement with bright red blood. He has had 4 more bowel movements with bright red blood since then with passing a lot of blood clots he reports. He has generalized abdominal pain all over and feels miserable overall. He called his general surgeon who did the colonoscopy and they told her to go to the emergency department for further evaluation. In the emergency department he had a CT scan of the abdomen/pelvis and it shows colitis from the mid transverse colon all the way through the the descending colon. His white blood cell count shows it to be elevated at 29,200 with elevated neutrophil count. Fortunately his hemoglobin is stable at above 18 but given his elevated white blood cell count and findings of colitis with passing of gross blood I did have decided to admit him as inpatient and treating with IV Levaquin and IV Flagyl for the colitis. We will keep an eye on his hemoglobin and transfuse him if his hemoglobin drops to where his vital signs change. I will have the nurses to a stool culture and checking for C. difficile as well as he has been on broad-spectrum antibiotics in the last month. Past Medical History Past Medical History: COPD Past Surgical History Surgical History: Angioplasty/Stents, Ortho Surgery and Other Family History Family Medical History: Diabetes Mellitus, Cancer, [place], Coronary Artery Disease, Heart Failure and Hypertension Social History Does patient currently use any type of tobacco product: Yes Have you used tobacco products in the last 12 months: Yes Type of Tobacco Use: Cigarettes How many years tobacco product used: 51 Does any household member use tobacco: No Alcohol Use: None Drug Use: None Medications Home Medications: No Known Drug Allergies Allergy (Verified 07/22/22 00:06) No Known Food Allergies Allergy (Verified 08/09/22 09:28) CONTINUE taking the following medications atorvastatin 80 mg tablet 80 mg PO QHS 09/21/22 [History] budesonide-formoterol HFA 160 mcg-4.5 mcg/actuation aerosol inhaler (Symbicort) 1 inh inhalation BID 09/21/22 [History] carvedilol 6.25 mg tablet 6.25 mg PO BID 09/21/22 [History] clopidogrel 75 mg tablet 75 mg PO QDAY 09/21/22 [History] fluticasone 250 mcg-salmeterol 50 mcg/dose blistr powdr for inhalation 1 puff inhalation BID 09/21/22 [History] hydrocodone 7.5 mg-acetaminophen 325 mg tablet 1 tab PO BID PRN 09/21/22 [History] pantoprazole 40 mg tablet,delayed release 40 tab PO QDAY 09/21/22 [History] sucralfate 100 mg/mL oral suspension 10 ml PO BID 09/21/22 [History] testosterone cypionate 200 mg/mL intramuscular oil 0.5 ml IM WEEKLY 09/21/22 [H istory] Labs Result Diagrams: 09/21/22 09:36 09/21/22 09:36 Labs: Laboratory WBC 29.2 X10^3/uL (3.6-10.0) H 09/21/22 09:36 RBC 6.14 X10^6/uL (4.7-6.0) H 09/21/22 09:36 Hgb 18.6 g/dL (13.5-18.0) H 09/21/22 09:36 Hct 54.8 % (42.0-54.0) H 09/21/22 09:36 MCV 89.1 fL (80.0-100.0) 09/21/22 09:36 MCH 30.2 pg (27.0-34.0) 09/21/22 09:36 MCHC 33.9 g/dL (33.0-35.0) 09/21/22 09:36 RDW 13.9 % (11.6-16.5) 09/21/22 09:36 Plt Count 259 X10^3/uL (150.0-450.0) 09/21/22 09:36 Plt Count Comment Adequate (ADEQUATE) 09/21/22 09:36 MPV 8.4 fL (7.4-11.0) 09/21/22 09:36 Neut % (Auto) 82.3 % (42.0-75.0) H 09/21/22 09:36 Lymph % (Auto) 6.8 % (21.0-51.0) L 09/21/22 09:36 [place] % (Auto) 10.4 % (0.0-13.0) 09/21/22 09:36 Eos % (Auto) 0.4 % (0.9-2.9) L 09/21/22 09:36 Baso % (Auto) 0.1 % (0.2-1.0) L 09/21/22 09:36 Neut # (Auto) 24.0 x10^3/uL (2.2-4.8) H 09/21/22 09:36 Lymph # (Auto) 2.0 X10^3/uL (1.3-2.9) 09/21/22 09:36 [place] # (Auto) 3.0 x10^3/uL (0.3-0.8) H 09/21/22 09:36 Eos # (Auto) 0.1 x10^3/uL (0.0-0.2) 09/21/22 09:36 Baso # (Auto) 0.0 X10^3/uL (0.0-0.1) 09/21/22 09:36 Absolute Nucleated RBC 0.0 /100WBC 09/21/22 09:36 Total Counted 100 09/21/22 09:36 Neutrophils % (Manual) 81 % (39-76) H 09/21/22 09:36 Band Neutrophils % 9 % (0-10) 09/21/22 09:36 Lymphocytes % (Manual) 4 % (13-43) L 09/21/22 09:36 Monocytes % (Manual) 6 % (4-9) 09/21/22 09:36 Plt Morphology Comment Normal (NORMAL) 09/21/22 09:36 RBC Morphology Normal (NORMAL) 09/21/22 09:36 PT 13.9 SECONDS (11.8-14.3) 09/21/22 09:36 INR Target Range - 09/21/22 09:36 INR 1.11 (0.8-1.3) 09/21/22 09:36 APTT 35.6 SECONDS (22.9-36.5) 09/21/22 09:36 PTT Comment - 09/21/22 09:36 Sodium 140 mmol/L (136-145) 09/21/22 09:36 Corrected Sodium 141 mmol/L (136-145) 09/21/22 09:36 Potassium 3.9 mmol/L (3.5-5.1) 09/21/22 09:36 Chloride 104 mmol/L (98-107) 09/21/22 09:36 Carbon Dioxide 26.6 mmol/L (21-32) 09/21/22 09:36 BUN 11 mg/dL (7-18) 09/21/22 09:36 Creatinine 1.00 mg/dL (0.70-1.30) 09/21/22 09:36 Est GFR (MDRD) Af Amer > 60 (>60) 09/21/22 09:36 Est GFR (MDRD) Non-Af > 60 (>60) 09/21/22 09:36 Glucose 129 mg/dL (65-99) H 09/21/22 09:36 Lactic Acid 1.3 mmol/L (0.4-2.0) 09/21/22 10:35 Calcium 9.0 mg/dL (8.5-10.1) 09/21/22 09:36 Corrected Calcium TNP 09/21/22 09:36 Total Bilirubin 0.70 mg/dL (0.2-1.0) 09/21/22 09:36 AST 18 Units/L (15-37) 09/21/22 09:36 ALT 25 Units/L (12-78) 09/21/22 09:36 Alkaline Phosphatase 74 Units/L (46-116) 09/21/22 09:36 Total Protein 7.5 g/dL (6.4-8.2) 09/21/22 09:36 Albumin 3.9 g/dL (3.4-5.0) 09/21/22 09:36 Globulin 3.6 g/dL (2.5-4.5) 09/21/22 09:36 Albumin/Globulin Ratio 1.1 Ratio (1.1-2.1) 09/21/22 09:36 Lipase 68 Units/L (73-393) L 09/21/22 09:36 Blood Type A POSITIVE 09/21/22 09:36 Antibody Screen Negative 09/21/22 09:36 Review of Systems Constitutional: Sweats, Weakness and Malaise Eyes: No Symptoms Reported ENT: No Symptoms Reported Respiratory: No Symptoms Reported Cardiovascular: No Symptoms Reported Gastrointestinal: Nausea, Abdominal Pain and Melena Genitourinary: No Symptoms Reported Musculoskeletal: No Symptoms Reported Skin: No Symptoms Reported Neurological: No Symptoms Reported Physical Exam Vital Signs: Temperature 98.0 F Pulse Rate [Left Brachial] 78 Pulse Rate 81 Respiratory Rate 18 Blood Pressure [Right Arm] 105/67 Blood Pressure [Left Arm] 128/70 Blood Pressure 119/68 O2 Sat by Pulse Oximetry 96 Oriented: Normal, Time, Person and Place Eyes: Normal Ear: Normal Nose: Normal Throat: Normal Respiratory: Clear Throughout Auscultation: Bowel Sounds: Normal Palpation: Normal Tenderness: Diffuse Skin: Normal Musculoskeletal: Normal Psychiatric: Normal Mood Description: Calm Affect: Normal Speech Pattern: Clear Assessment/Plan (1) Colitis: Status: Acute Plan: Continue IV Levaquin and Flagyl. I will check stool cultures and C. difficile. (2) Hematochezia: Narrative Support Text: I suspect the blood loss is coming from the patient's polypectomy yesterday. We will keep an eye on his hemoglobin and transfuse packed red blood cells if needed. Status: Acute Plan: Monitor daily hemoglobins. (3) Leukocytosis: Status: Acute Plan: Repeat CBC tomorrow morning. In the meantime continue IV Levaquin and Flagyl. (4) Chronic back pain: Status: Chronic Plan: Resume patient's hydrocodone for chronic back pain. (5) CAD, multiple vessel: Status: Chronic
--- NOTE | 2022-09-21 15:58 | RAD ---
HISTORYABD PAINSTUDYACUTE ABDOMEN [id number]/12/2022FINDINGSThe cardiomediastinal silhouette is unremarkable. The lungs are clear without evidence of airspace disease or effusion. No pneumothorax. The bony thorax appears intact.Evaluation of the abdomen demonstrates a nonobstructive bowel gas pattern. Moderate colonic stool. No evidence of pneumoperitoneum. No pathologic soft tissue calcification. The bony structures of the abdomen are intact. Posterior lumbar fusion hardware. Cholecystectomy clips.IMPRESSION1. No acute cardiopulmonary process.2. No acute abdominal process.Electronically signed by: LILY GOLD (Sep 21, 2022 15:56:53)
[2022-09-21] MEDS: PROTONIX TAB 40 MG PO SCH (16:11)
[2022-09-21] MEDS: PULMICORT NEB TX 0.5 MG NEB SCH (21:00)
[2022-09-21] MEDS ORDERED: PATIENT'S HOME MEDICATION (Budesonide-Formoterol [Symbicort] 160-4.5 mcg/actuation HFA aer IN SCH (21:00)
[2022-09-21] MEDS: XOPENEX 1.25 MG/3 ML NEBULE NEB SCH (21:00)
[2022-09-21] MEDS: COREG TAB 6.25 MG PO SCH (21:13)
[2022-09-21] MEDS: FLAGYL IV PREMIX 500 MG BAG 500 MG/100 ML BAG IV SCH (21:13)
[2022-09-21] MEDS: CARAFATE ORAL SUSP PO SCH (21:13)
[2022-09-21] MEDS: LIPITOR TAB 80 MG PO SCH (21:14)
[2022-09-22 05:12] LABS: BASOPHILS # (AUTO) 0.1 X10^3/uL (0.0-0.1); BASOPHILS % (AUTO) 0.3 % (0.2-1.0); EOSINOPHILS # (AUTO) 0.3 x10^3/uL (0.0-0.2); EOSINOPHILS % (AUTO) 1.5 % (0.9-2.9); HEMATOCRIT 48.4 % (42.0-54.0); LYMPHOCYTES # (AUTO) 3.4 X10^3/uL (1.3-2.9); LYMPHOCYTES % (AUTO) 17.7 % (21.0-51.0); MEAN CORPUSCULAR HGB CONC 33.7 g/dL (33.0-35.0); MEAN CORPUSCULAR VOLUME 89.1 fL (80.0-100.0); MEAN PLATELET VOLUME 8.5 fL (7.4-11.0); MONOCYTES # (AUTO) 1.9 x10^3/uL (0.3-0.8); MONOCYTES % (AUTO) 9.8 % (0.0-13.0); NEUTROPHILS # (AUTO) 13.4 x10^3/uL (2.2-4.8); NEUTROPHILS % (AUTO) 70.7 % (42.0-75.0); RED BLOOD COUNT 5.43 X10^6/uL (4.7-6.0); RED CELL DISTRIBUTION WIDTH 13.7 % (11.6-16.5)
[2022-09-22 05:16] LABS: HEMOGLOBIN 16.3 g/dL (13.5-18.0)
[2022-09-22 05:20] LABS: ALANINE AMINOTRANSFERASE 70 Units/L (12-78); ALBUMIN 3.1 g/dL (3.4-5.0); ALKALINE PHOSPHATASE 68 Units/L (46-116); ASPARTATE AMINO TRANSFERASE 58 Units/L (15-37); BLOOD UREA NITROGEN 7 mg/dL (7-18); CARBON DIOXIDE 25.9 mmol/L (21-32); CHLORIDE 103 mmol/L (98-107); COR CA(FOR HYPOALB) 8.7 mg/dL (8.5-10.1); CREATININE 0.87 mg/dL (0.70-1.30); SODIUM 138 mmol/L (136-145); TOTAL PROTEIN 6.4 g/dL (6.4-8.2); eGFR NON BLACK RACES > 60 (>60)
[2022-09-22] MEDS: XOPENEX 1.25 MG/3 ML NEBULE NEB SCH ×3 (05:41→21:00)
[2022-09-22] MEDS: LEVAQUIN PREMIX IV 750 MG 750 MG/150 ML BAG IV SCH (08:50)
[2022-09-22] MEDS: COREG TAB 6.25 MG PO SCH ×2 (08:52→20:34)
[2022-09-22] MEDS: PROTONIX TAB 40 MG PO SCH (08:52)
[2022-09-22] MEDS: CARAFATE ORAL SUSP PO SCH ×2 (08:52→20:34)
[2022-09-22] MEDS: ZESTRIL TAB 5 MG PO SCH (08:52)
[2022-09-22] MEDS: FLAGYL IV PREMIX 500 MG BAG 500 MG/100 ML BAG IV SCH ×2 (08:52→20:35)
--- NOTE | 2022-09-22 09:08 | PCM.PROG ---
Progress Note Progress Note for Day of Date of Exam: 09/22/22 Subjective Subjective: Patient reports he is feeling much better this morning. He has much less abdominal pain and I see that his white blood cell count has decreased to 19,000. He had a problems overnight and is currently feeling much better. Stool cultures are pending however he was negative for Campylobacter but he was positive for stool WBCs. This indicates that he does have an infectious colitis. Patient is responding to current treatment so we will continue giving IV Flagyl and Levaquin. We will plan on possible discharge home tomorrow or at the latest Tuesday. Past Medical Family Social History Allergies: Allergies No Known Drug Allergies Allergy (Verified 07/22/22 00:06) No Known Food Allergies Allergy (Verified 08/09/22 09:28) Review of Systems ROS: No change since H&P Vital Signs and I&O's Vital Signs: Temperature 98.4 F Pulse Rate [Left Brachial] 60 Pulse Rate 77 Respiratory Rate 18 Blood Pressure [Right Arm] 125/61 Blood Pressure [Left Arm] 100/61 Blood Pressure 119/68 O2 Sat by Pulse Oximetry 92 Intake and Output: Intake & Output 09/19/22 09/20/22 09/21/22 09/22/22 11:59 11:59 11:59 11:59 Intake Total 1181 / 1181 Balance 1181 / 1181 Physical Exam Oriented: Normal, Time, Person and Place Eyes: Normal Ear: Normal Nose: Normal Throat: Normal Respiratory: Normal Cardiovascular: Normal Auscultation: Bowel Sounds: Normal Palpation: Normal Tenderness: Normal and Diffuse Skin: Normal Musculoskeletal: Normal Psychiatric: Normal Mood Description: Calm Affect: Normal Speech Pattern: Clear and Appropriate Laboratory and Diagnostics Result Diagrams: 09/22/22 04:46 09/22/22 04:46 Labs: 09/21/22 17:03 Stool - Final Laboratory WBC 19.0 X10^3/uL (3.6-10.0) H D 09/22/22 04:46 RBC 5.43 X10^6/uL (4.7-6.0) 09/22/22 04:46 Hgb 16.3 g/dL (13.5-18.0) D 09/22/22 04:46 Hct 48.4 % (42.0-54.0) 09/22/22 04:46 MCV 89.1 fL (80.0-100.0) 09/22/22 04:46 MCH 30.0 pg (27.0-34.0) 09/22/22 04:46 MCHC 33.7 g/dL (33.0-35.0) 09/22/22 04:46 RDW 13.7 % (11.6-16.5) 09/22/22 04:46 Plt Count 217 X10^3/uL (150.0-450.0) 09/22/22 04:46 Plt Count Comment Adequate (ADEQUATE) 09/21/22 09:36 MPV 8.5 fL (7.4-11.0) 09/22/22 04:46 Neut % (Auto) 70.7 % (42.0-75.0) 09/22/22 04:46 Lymph % (Auto) 17.7 % (21.0-51.0) L 09/22/22 04:46 [place] % (Auto) 9.8 % (0.0-13.0) 09/22/22 04:46 Eos % (Auto) 1.5 % (0.9-2.9) 09/22/22 04:46 Baso % (Auto) 0.3 % (0.2-1.0) 09/22/22 04:46 Neut # (Auto) 13.4 x10^3/uL (2.2-4.8) H 09/22/22 04:46 Lymph # (Auto) 3.4 X10^3/uL (1.3-2.9) H 09/22/22 04:46 [place] # (Auto) 1.9 x10^3/uL (0.3-0.8) H 09/22/22 04:46 Eos # (Auto) 0.3 x10^3/uL (0.0-0.2) H 09/22/22 04:46 Baso # (Auto) 0.1 X10^3/uL (0.0-0.1) 09/22/22 04:46 Absolute Nucleated RBC 0.0 /100WBC 09/22/22 04:46 Total Counted 100 09/21/22 09:36 Neutrophils % (Manual) 81 % (39-76) H 09/21/22 09:36 Band Neutrophils % 9 % (0-10) 09/21/22 09:36 Lymphocytes % (Manual) 4 % (13-43) L 09/21/22 09:36 Monocytes % (Manual) 6 % (4-9) 09/21/22 09:36 Plt Morphology Comment Normal (NORMAL) 09/21/22 09:36 RBC Morphology Normal (NORMAL) 09/21/22 09:36 PT 13.9 SECONDS (11.8-14.3) 09/21/22 09:36 INR Target Range - 09/21/22 09:36 INR 1.11 (0.8-1.3) 09/21/22 09:36 APTT 35.6 SECONDS (22.9-36.5) 09/21/22 09:36 PTT Comment - 09/21/22 09:36 Sodium 138 mmol/L (136-145) 09/22/22 04:46 Corrected Sodium TNP 09/22/22 04:46 Potassium 4.2 mmol/L (3.5-5.1) 09/22/22 04:46 Chloride 103 mmol/L (98-107) 09/22/22 04:46 Carbon Dioxide 25.9 mmol/L (21-32) 09/22/22 04:46 BUN 7 mg/dL (7-18) 09/22/22 04:46 Creatinine 0.87 mg/dL (0.70-1.30) 09/22/22 04:46 Est GFR (MDRD) Af Amer > 60 (>60) 09/22/22 04:46 Est GFR (MDRD) Non-Af > 60 (>60) 09/22/22 04:46 Glucose 96 mg/dL (65-99) 09/22/22 04:46 Lactic Acid 1.3 mmol/L (0.4-2.0) 09/21/22 10:35 Calcium 8.0 mg/dL (8.5-10.1) L 09/22/22 04:46 Corrected Calcium 8.7 mg/dL (8.5-10.1) 09/22/22 04:46 Total Bilirubin 0.70 mg/dL (0.2-1.0) 09/22/22 04:46 AST 58 Units/L (15-37) H 09/22/22 04:46 ALT 70 Units/L (12-78) 09/22/22 04:46 Alkaline Phosphatase 68 Units/L (46-116) 09/22/22 04:46 Total Protein 6.4 g/dL (6.4-8.2) 09/22/22 04:46 Albumin 3.1 g/dL (3.4-5.0) L 09/22/22 04:46 Globulin 3.3 g/dL (2.5-4.5) 09/22/22 04:46 Albumin/Globulin Ratio 0.9 Ratio (1.1-2.1) L 09/22/22 04:46 Lipase 68 Units/L (73-393) L 09/21/22 09:36 Stool for White Cells Positive (NEGATIVE) A 09/21/22 17:03 Stl C. diff Tox B Gene Negative (NEGATIVE) 09/21/22 17:03 Stl C. diff [id number] Presumptive negative (NEGATIVE) 09/21/22 17:03 Blood Type A POSITIVE 09/21/22 09:36 Antibody Screen Negative 09/21/22 09:36 Plan (1) Colitis: Status: Acute Narrative Support Text: Stool positive for WBCs, negative for C. difficile. Stool culture pending. Campylobacter was negative. Plan: Continue IV Levaquin and Flagyl. Follow-up stool culture when available. (2) Hematochezia: Status: Acute Plan: Monitor daily hemoglobins. (3) Leukocytosis: Status: Acute Narrative Support Text: Much improved. Plan: Repeat CBC tomorrow morning. In the meantime continue IV Levaquin and Flagyl. (4) Chronic back pain: Status: Chronic Plan: Resume patient's hydrocodone for chronic back pain. (5) CAD, multiple vessel: Status: Chronic
[2022-09-22] MEDS: PULMICORT NEB TX 0.5 MG NEB SCH ×2 (09:20→21:00)
[2022-09-22] MEDS: NORCO 7.5/325 MG TAB PO PRN (17:06)
[2022-09-22] MEDS: LIPITOR TAB 80 MG PO SCH (20:34)
[2022-09-23] MEDS: NORCO 7.5/325 MG TAB PO PRN (04:25)
[2022-09-23 05:03] LABS: BASOPHILS # (AUTO) 0.1 X10^3/uL (0.0-0.1); BASOPHILS % (AUTO) 0.7 % (0.2-1.0); EOSINOPHILS # (AUTO) 0.4 x10^3/uL (0.0-0.2); EOSINOPHILS % (AUTO) 3.6 % (0.9-2.9); HEMATOCRIT 46.8 % (42.0-54.0); HEMOGLOBIN 15.8 g/dL (13.5-18.0); LYMPHOCYTES # (AUTO) 3.4 X10^3/uL (1.3-2.9); LYMPHOCYTES % (AUTO) 28.5 % (21.0-51.0); MEAN CORPUSCULAR HEMOGLOBIN 29.9 pg (27.0-34.0); MEAN CORPUSCULAR HGB CONC 33.8 g/dL (33.0-35.0); MEAN CORPUSCULAR VOLUME 88.6 fL (80.0-100.0); MEAN PLATELET VOLUME 8.6 fL (7.4-11.0); MONOCYTES # (AUTO) 1.3 x10^3/uL (0.3-0.8); MONOCYTES % (AUTO) 11.3 % (0.0-13.0); NEUTROPHILS # (AUTO) 6.7 x10^3/uL (2.2-4.8); NEUTROPHILS % (AUTO) 55.9 % (42.0-75.0); RED BLOOD COUNT 5.29 X10^6/uL (4.7-6.0); RED CELL DISTRIBUTION WIDTH 13.6 % (11.6-16.5)
[2022-09-23 05:19] LABS: ALANINE AMINOTRANSFERASE 44 Units/L (12-78); ALBUMIN 3.1 g/dL (3.4-5.0); ALKALINE PHOSPHATASE 64 Units/L (46-116); ASPARTATE AMINO TRANSFERASE 21 Units/L (15-37); BLOOD UREA NITROGEN 8 mg/dL (7-18); CALCIUM 8.1 mg/dL (8.5-10.1); CARBON DIOXIDE 26.7 mmol/L (21-32); CHLORIDE 104 mmol/L (98-107); COR CA(FOR HYPOALB) 8.8 mg/dL (8.5-10.1); CREATININE 0.92 mg/dL (0.70-1.30); SODIUM 139 mmol/L (136-145); TOTAL PROTEIN 6.3 g/dL (6.4-8.2); eGFR NON BLACK RACES > 60 (>60)
[2022-09-23] MEDS ORDERED: MICRO K EXTEN CAP 10 MEQ PO PRN (05:31)
[2022-09-23] MEDS ORDERED: POTASSIUM CHLORIDE LIQ 20 MEQ UDC PO PRN (05:31)
[2022-09-23] MEDS ORDERED: K-DUR TAB 20 MEQ PO PRN (05:31)
[2022-09-23] MEDS ORDERED: POTASSIUM CHL 60 MEQ/NS 0.45% 500 ML IV PRN (05:31)
[2022-09-23] MEDS ORDERED: KLOR-CON PO PRN (05:31)
[2022-09-23] MEDS ORDERED: POTASSIUM CHL 40 MEQ/NS 0.45% 500 ML IV PRN (05:31)
[2022-09-23] MEDS ORDERED: K-RIDER 10 MEQ/NS 100 ML 10 MEQ/100 ML BAG IV PRN (05:31)
[2022-09-23] MEDS: MAGNESIUM SULFATE 1 GRAM/100 mL PREMIX 1 G/100 ML BAG IV PRN ×2 (05:50→08:27)
[2022-09-23] MEDS: XOPENEX 1.25 MG/3 ML NEBULE NEB SCH (06:07)
[2022-09-23 07:42] VITALS: BP 110/65
[2022-09-23] MEDS: LEVAQUIN PREMIX IV 750 MG 750 MG/150 ML BAG IV SCH (08:12)
[2022-09-23] MEDS: FLAGYL IV PREMIX 500 MG BAG 500 MG/100 ML BAG IV SCH (08:15)
[2022-09-23] MEDS: CARAFATE ORAL SUSP PO SCH (08:16)
[2022-09-23] MEDS: COREG TAB 6.25 MG PO SCH (08:16)
[2022-09-23] MEDS: PROTONIX TAB 40 MG PO SCH (08:16)
[2022-09-23] MEDS: ZESTRIL TAB 5 MG PO SCH (08:16)
== END 2022-09-23 11:14 | disposition home or self-care (01) | DRG 379 ==
LOC: ER 09:04 → MED/SURG 09:04 → OBSVTOIN 12:14 → MED/SURG 13:22
PROVIDERS: ADMIT Family Medicine; ATTEND Family Medicine
DX: J44.9 Chronic obstructive pulmonary disease, unspecified; K62.5 Hemorrhage of anus and rectum; A08.8 Other specified intestinal infections; Z98.890 Other specified postprocedural states; I25.10 Atherosclerotic heart disease of native coronary artery without angina pectoris; R10.84 Generalized abdominal pain; M54.89 Other dorsalgia

== ENCOUNTER 2025-03-21 13:40 | Inpatient (IN) ==
[2025-03-21] MEDS ORDERED: ULTRAM PO PRN (14:56)
[2025-03-21] MEDS ORDERED: MORPHINE SULFATE INJ 2 MG INJ IVP PRN (14:56)
[2025-03-21] MEDS ORDERED: TYLENOL 325 MG TAB PO PRN (14:56)
[2025-03-21 15:30] LABS: MEAN PLATELET VOLUME 8.6 fL (7.4-11.0); RED CELL DISTRIBUTION WIDTH 13.9 % (11.6-16.5)
[2025-03-21 15:44] LABS: CREATININE 0.90 mg/dL (0.70-1.30); eGFR NON BLACK RACES > 60 (>60)
[2025-03-21] MEDS: NORCO 5/325 MG TAB PO PRN (15:45)
[2025-03-21] MEDS: PHARMACY CONSULT - VANCOMYCIN XX SCH (16:26)
[2025-03-21] MEDS: VANCOMYCIN IV *PREMIX 1.25 G/250 ML BAG 1.25 G/250 ML PIGGYBACK IV SCH (16:58)
[2025-03-21] MEDS: NICOTINE PATCH TD SCH (16:58)
--- NOTE | 2025-03-21 19:03 | DR.H&P ---
H&P History & Physical for Day of: H&P Date: 03/21/25 Chief Complaint Chief Complaint: right foot redness and pain swelling History of Present Illness History of Present Illness: Patient is a 65-year-old male with a past medical history of hypertension, hypothyroidism, hyperlipidemia, COPD, directly admitted from clinic after failed outpatient treatment of right foot cellulitis. He noticed swelling and redness on Tuesday. He went to the ER on Tuesday and was given clindamycin. He reports no improvement in symptoms. He reports that redness and swelling has spread. Denies fevers or chills. On exam patient does have erythema and edema of that right foot. Labs/imaging: WBC 10.7, hemoglobin 17.9, platelets 313, Sodium 144, potassium 4.1, creatinine 0.90, glucose 91, x- ray of the foot was ordered, results pending. Blood cultures pending. Patient was admitted for right foot cellulitis. Will order IV vancomycin. Area does not have any discharge or abscess/ulcer we can obtain cultures. Will trace margins and follow-up. Restart home medications. Otherwise continue with current treatment plan. Continue closely monitor and follow-up labs/imaging. Past Medical History Past Medical History: Arthritis, Asthma, COPD, Coronary Artery Disease, Dyslipidemia, GERD, Hypertension, Hypothyroidism, Kidney Stones and PUD Past Surgical History Surgical History: Angioplasty/Stents, Cholecystectomy, Ortho Surgery, Tonsillectomy and Other Family History Family Medical History: Diabetes Mellitus, Cancer, [place], Coronary Artery Disease, Heart Failure, Sudden Cardiac and Hypertension Social History Does patient currently use any type of tobacco product: Yes Type of Tobacco Use: Cigarettes Does any household member use tobacco: No Alcohol Use: None Drug Use: Marijuana Medications Home Medications: Home Medications Medication Instructions Recorded Confirmed Type aspirin 81 mg tablet 81 mg PO QDAY 03/08/2503/21 History rosuvastatin 10 mg tablet 10 mg PO QPM 03/21/25 History Allergies Allergies Allergy/AdvReac Type Severity Reaction Status Date / Time No Known Drug Allergies Allergy Unknown Verified 03/18/25 16:47 Labs 03/21/25 15:14 03/21/25 15:14 Labs: Laboratory WBC 10.7 X10^3/uL (3.6-10.0) H 03/21/25 15:14 RBC 5.84 X10^6/uL (4.7-6.0) 03/21/25 15:14 Hgb 17.9 g/dL (13.5-18.0) 03/21/25 15:14 Hct 52.6 % (42.0-54.0) 03/21/25 15:14 MCV 90.2 fL (80.0-100.0) 03/21/25 15:14 MCH 30.7 pg (27.0-34.0) 03/21/25 15:14 MCHC 34.0 g/dL (33.0-35.0) 03/21/25 15:14 RDW 13.9 % (11.6-16.5) 03/21/25 15:14 Plt Count 313 X10^3/uL (150.0-450.0) 03/21/25 15:14 MPV 8.6 fL (7.4-11.0) 03/21/25 15:14 Neut % (Auto) 55.3 % (42.0-75.0) 03/21/25 15:14 Lymph % (Auto) 32.4 % (21.0-51.0) 03/21/25 15:14 [place] % (Auto) 9.4 % (0.0-13.0) 03/21/25 15:14 Eos % (Auto) 2.0 % (0.9-2.9) 03/21/25 15:14 Baso % (Auto) 0.9 % (0.2-1.0) 03/21/25 15:14 Neut # (Auto) 5.9 x10^3/uL (2.2-4.8) H 03/21/25 15:14 Lymph # (Auto) 3.5 X10^3/uL (1.3-2.9) H 03/21/25 15:14 [place] # (Auto) 1.0 x10^3/uL (0.3-0.8) H 03/21/25 15:14 Eos # (Auto) 0.2 x10^3/uL (0.0-0.2) 03/21/25 15:14 Baso # (Auto) 0.1 X10^3/uL (0.0-0.1) 03/21/25 15:14 Absolute Nucleated RBC 0.4 /100WBC 03/21/25 15:14 Sodium 144 mmol/L (136-145) 03/21/25 15:14 Corrected Sodium TNP 03/21/25 15:14 Potassium 4.1 mmol/L (3.5-5.1) 03/21/25 15:14 Chloride 105 mmol/L (98-107) 03/21/25 15:14 Carbon Dioxide 29.9 mmol/L (21-32) 03/21/25 15:14 BUN 14 mg/dL (7-18) 03/21/25 15:14 Creatinine 0.90 mg/dL (0.70-1.30) 03/21/25 15:14 Est GFR (MDRD) Af Amer > 60 (>60) 03/21/25 15:14 Est GFR (MDRD) Non-Af > 60 (>60) 03/21/25 15:14 Glucose 91 mg/dL (65-99) 03/21/25 15:14 Lactic Acid 1.4 mmol/L (0.4-2.0) 03/21/25 15:14 Calcium 9.3 mg/dL (8.5-10.1) 03/21/25 15:14 Corrected Calcium TNP 03/21/25 15:14 Total Bilirubin 0.30 mg/dL (0.2-1.0) 03/21/25 15:14 AST 19 Units/L (15-37) 03/21/25 15:14 ALT 30 Units/L (12-78) 03/21/25 15:14 Alkaline Phosphatase 90 Units/L (46-116) 03/21/25 15:14 Total Protein 9.1 g/dL (6.4-8.2) H 03/21/25 15:14 Albumin 4.4 g/dL (3.4-5.0) 03/21/25 15:14 Globulin 4.7 g/dL (2.5-4.5) H 03/21/25 15:14 Albumin/Globulin Ratio 0.9 Ratio (1.1-2.1) L 03/21/25 15:14 Review of Systems Constitutional: No Symptoms Reported Eyes: No Symptoms Reported ENT: No Symptoms Reported Respiratory: No Symptoms Reported Cardiovascular: No Symptoms Reported Gastrointestinal: No Symptoms Reported Genitourinary: No Symptoms Reported Musculoskeletal: Foot Pain (right) Skin: Rash (right foot redness) Neurological: No Symptoms Reported Physical Exam Vital Signs: Vital Signs Temperature 98.0 F Pulse Rate [Radial] 80 Respiratory Rate 18 Respiratory Rate 18 Blood Pressure [Left Arm] 122/84 Blood Pressure 122/81 O2 Sat by Pulse Oximetry 93 Oriented: Normal Eyes: Normal Ear: Normal Nose: Normal Throat: Normal Respiratory: Clear Throughout Cardiovascular: Normal : Normal Auscultation: Bowel Sounds: Normal Palpation: Normal Tenderness: Normal Skin: Rash (right foot edema and erythema dorsal) Musculoskeletal: Normal Psychiatric: Normal Mood Description: Calm and Appropriate Affect: Normal Speech Pattern: Clear and Appropriate Assessment/Plan (1) Cellulitis of right foot: Status: Acute Plan: IV vancomycin XR right foot pending (2) Multilevel degenerative disc disease: Status: Acute (3) Hypothyroidism: Qualifiers: Hypothyroidism type: acquired Qualified Code(s): E03.9 - Hypothyroidism, unspecified Status: Acute (4) Mixed hyperlipidemia: Status: Acute Review H&P Reviewed: Yes Patient was examined?: Yes
[2025-03-21] MEDS: NYSTATIN POWDER TOP SCH (20:21)
[2025-03-21] MEDS: LIPITOR TAB 10 MG PO SCH (20:21)
[2025-03-21] MEDS: CHECK PATCH XX SCH (20:29)
[2025-03-22] MEDS: SYNTHROID 25 mcg TAB PO SCH (05:41)
[2025-03-22] MEDS: NORCO 10/325 TAB PO PRN (05:49)
[2025-03-22 06:29] LABS: MEAN PLATELET VOLUME 9.1 fL (7.4-11.0); RED CELL DISTRIBUTION WIDTH 14.3 % (11.6-16.5)
[2025-03-22 06:53] LABS: CREATININE 0.85 mg/dL (0.70-1.30); eGFR NON BLACK RACES > 60 (>60)
--- NOTE | 2025-03-22 07:23 | RAD ---
EXAMINATION: FOOT, RIGHT HISTORY: cellulitis right foot; . COMPARISON STUDY: Right foot series 03/18/2025 TECHNIQUE: Three views right foot FINDINGS: Osseous structures appear intact. Faint 3.5 mm calcific density projecting within the soft tissues between the distal 1st and 2nd metatarsals on the frontal view potential foreign body. Cancellous screw along the distal calcaneus. No evidence of bone destruction to indicate osteomyelitis. Generalized soft tissue swelling about the foot. IMPRESSION: Soft tissue swelling. No evidence of destructive osteomyelitis at this time. Possible tiny foreign body within the soft tissues projecting between the distal 1st and 2nd metatarsals on the frontal view. THIS IS AN ELECTRONICALLY VERIFIED FINAL REPORT 03/22/2025 7:19 AM - Electronically signed by Aide Neal MD
[2025-03-22] MEDS: ASPIRIN 81 MG CHEWTAB PO SCH (08:36)
[2025-03-22] MEDS: TOPROL XL PO SCH (08:36)
--- NOTE | 2025-03-22 13:12 | CT ---
EXAM: LOWER EXT WITH CON HISTORY: POSSIBLE FB/ CELLULITIS ; COMPARISON: Right foot radiographs 03/21/2025 TECHNIQUE: Multiple axial images of the right foot were obtained with IV contrast. Coronal and sagittal reformats were made and reviewed. Dose reduction techniques included Automated Exposure Control (AEC) and adjustment of mA and kV. FINDINGS: There is a small foreign body in the soft tissues between the 1st and 2nd metatarsals near the heads. Maximum Hounsfield units measure 1900 and suggesting that this is metal or a dense calcification. It measures about 2.8 mm in longest dimension. There is another ossification or foreign body posterior to the talus Hounsfield units measure almost 2300. Orthopedic screw is present through the calcaneus and an old fracture in the anterior calcaneus. The bones appear diffusely demineralized. No acute fracture or dislocation. Edema is noted in the subcutaneous tissue of the dorsum of the foot. No focal fluid collection to suggest abscess. There is no focal edema or fluid collections where the 2 possible foreign bodies are located. No abnormal enhancement. No emphysema in the soft tissues. IMPRESSION: 1. Small ossifications versus foreign bodies between the 1st and 2nd metatarsals and posterior to the talus 2. Soft tissue edema without fluid collection THIS IS AN ELECTRONICALLY VERIFIED FINAL REPORT 03/22/2025 1:09 PM - Electronically signed by Maxwell Gary MD
[2025-03-23 05:28] LABS: MEAN PLATELET VOLUME 8.8 fL (7.4-11.0); RED CELL DISTRIBUTION WIDTH 13.8 % (11.6-16.5)
[2025-03-23 05:39] LABS: CREATININE 0.80 mg/dL (0.70-1.30); eGFR NON BLACK RACES > 60 (>60)
[2025-03-23] MEDS: PHARMACY COMMENT IV NR (05:39)
[2025-03-23] MEDS ORDERED: KETAMINE HCL ONE ×2 (09:00)
[2025-03-23] MEDS ORDERED: PRECEDEX INJ VIAL ONE (09:00)
--- NOTE | 2025-03-23 10:51 | PCM.PROG ---
Progress Note Progress Note for Day of Date of Exam: 03/22/25 Subjective Subjective: Patient is a 65-year-old male with a past medical history of hypertension, hypothyroidism, hyperlipidemia, COPD, admitted for right foot cellulitis. This morning he is resting in bed. No acute events overnight. He reports pain in his foot has slightly improved. Redness has also slightly improved. Labs/imaging: WBC 12.6, hemoglobin 17, platelets 280, Sodium 142, potassium 4.7, creatinine 0.85, glucose 106, Blood cultures pending. Patient is currently receiving IV vancomycin. X-ray revealed no osteomyelitis with some soft tissue swelling. Will also get CT of the foot for further evaluation. Otherwise continue with current treatment plan. Continue closely monitor and follow-up labs/imaging. Past Medical Family Social History Allergies: Allergies No Known Drug Allergies Allergy (Unknown, Verified 03/18/25 16:47) Onset Date: 06/02/2020 Review of Systems ROS changes noted: see HPI Vital Signs and I&O's Vital Signs: Vital Signs Temperature 97.9 F Temperature 97.5 F Pulse Rate [Radial] 65 Pulse Rate [Radial] 69 Respiratory Rate 20 Respiratory Rate 18 Respiratory Rate 19 Respiratory Rate 19 Blood Pressure [Right Arm] 132/63 Blood Pressure [Left Arm] 114/73 O2 Sat by Pulse Oximetry 96 O2 Sat by Pulse Oximetry 97 Intake and Output: Intake & Output 03/19/25 03/20/25 03/21/25 03/22/25 23:59 23:59 23:59 23:59 Intake Total 440 / 440 255 / 255 Output Total / Balance 440 / 440 254 / 254 Physical Exam Oriented: Normal Eyes: Normal Ear: Normal Nose: Normal Throat: Normal Cardiovascular: Normal : Normal Auscultation: Bowel Sounds: Normal Tenderness: Normal Skin: Rash (right foot edema and erythema dorsal) Musculoskeletal: Normal Psychiatric: Normal Mood Description: Calm and Appropriate Affect: Normal Speech Pattern: Clear and Appropriate Laboratory and Diagnostics 03/23/25 04:58 03/23/25 04:58 Labs: Laboratory WBC 12.6 X10^3/uL (3.6-10.0) H 03/22/25 06:09 RBC 5.54 X10^6/uL (4.7-6.0) 03/22/25 06:09 Hgb 17.0 g/dL (13.5-18.0) 03/22/25 06:09 Hct 50.1 % (42.0-54.0) 03/22/25 06:09 MCV 90.4 fL (80.0-100.0) 03/22/25 06:09 MCH 30.6 pg (27.0-34.0) 03/22/25 06:09 MCHC 33.8 g/dL (33.0-35.0) 03/22/25 06:09 RDW 14.3 % (11.6-16.5) 03/22/25 06:09 Plt Count 280 X10^3/uL (150.0-450.0) 03/22/25 06:09 MPV 9.1 fL (7.4-11.0) 03/22/25 06:09 Neut % (Auto) 53.3 % (42.0-75.0) 03/22/25 06:09 Lymph % (Auto) 31.6 % (21.0-51.0) 03/22/25 06:09 [place] % (Auto) 11.8 % (0.0-13.0) 03/22/25 06:09 Eos % (Auto) 2.4 % (0.9-2.9) 03/22/25 06:09 Baso % (Auto) 0.9 % (0.2-1.0) 03/22/25 06:09 Neut # (Auto) 6.7 x10^3/uL (2.2-4.8) H 03/22/25 06:09 Lymph # (Auto) 4.0 X10^3/uL (1.3-2.9) H 03/22/25 06:09 [place] # (Auto) 1.5 x10^3/uL (0.3-0.8) H 03/22/25 06:09 Eos # (Auto) 0.3 x10^3/uL (0.0-0.2) H 03/22/25 06:09 Baso # (Auto) 0.1 X10^3/uL (0.0-0.1) 03/22/25 06:09 Absolute Nucleated RBC 0.1 /100WBC 03/22/25 06:09 Sodium 142 mmol/L (136-145) 03/22/25 06:09 Corrected Sodium TNP 03/22/25 06:09 Potassium 4.7 mmol/L (3.5-5.1) 03/22/25 06:09 Chloride 104 mmol/L (98-107) 03/22/25 06:09 Carbon Dioxide 27.9 mmol/L (21-32) 03/22/25 06:09 BUN 17 mg/dL (7-18) 03/22/25 06:09 Creatinine 0.85 mg/dL (0.70-1.30) 03/22/25 06:09 Est GFR (MDRD) Af Amer > 60 (>60) 03/22/25 06:09 Est GFR (MDRD) Non-Af > 60 (>60) 03/22/25 06:09 Glucose 106 mg/dL (65-99) H 03/22/25 06:09 Lactic Acid 1.4 mmol/L (0.4-2.0) 03/21/25 15:14 Calcium 9.1 mg/dL (8.5-10.1) 03/22/25 06:09 Corrected Calcium TNP 03/22/25 06:09 Total Bilirubin 0.30 mg/dL (0.2-1.0) 03/22/25 06:09 AST 17 Units/L (15-37) 03/22/25 06:09 ALT 27 Units/L (12-78) 03/22/25 06:09 Alkaline Phosphatase 84 Units/L (46-116) 03/22/25 06:09 Total Protein 8.2 g/dL (6.4-8.2) 03/22/25 06:09 Albumin 3.9 g/dL (3.4-5.0) 03/22/25 06:09 Globulin 4.3 g/dL (2.5-4.5) 03/22/25 06:09 Albumin/Globulin Ratio 0.9 Ratio (1.1-2.1) L 03/22/25 06:09 Plan (1) Cellulitis of right foot: Status: Acute Plan: IV vancomycin XR right foot see results, will get CT foot for further evaluation. (2) Multilevel degenerative disc disease: Status: Acute (3) Hypothyroidism: Status: Acute Qualifiers: Hypothyroidism type: acquired Qualified Code(s): E03.9 - Hypothyroidism, unspecified (4) Mixed hyperlipidemia: Status: Acute
--- NOTE | 2025-03-23 12:00 | PCM.PROG ---
Progress Note Progress Note for Day of Date of Exam: 03/23/25 Subjective Subjective: Patient seen at bedside, no acute events overnight. He is currently admitted for right foot cellulitis. He did have CT lower extremity done yesterday which showed some soft tissue edema, no fluid collection. It also showed foreign body. Patient reports having ankle surgery years ago and does have some hardware. The redness and swelling on his right foot has improved since admission. He remains on IV Vanco. His blood cultures are negative. Labs/imaging reviewed: - WBC 10.5 hemoglobin 16 potassium 4.2 creatinine 0.80 - Blood cultures negative -CT reviewed: Small ossifications versus foreign bodies between the 1st and 2nd metatarsals and posterior to the talus. Soft tissue edema without fluid collection Plan: Continue IV antibiotics. Continue pain control. Monitor erythema. Keep leg elevated. Will consider consulting podiatry on Tuesday. Replace electrolytes as per protocol. Continue home medications. Monitor AM labs/imaging. Past Medical Family Social History Allergies: Allergies No Known Drug Allergies Allergy (Unknown, Verified 03/18/25 16:47) Onset Date: 06/02/2020 Vital Signs and I&O's Vital Signs: Vital Signs Temperature 97.6 F Temperature 98.0 F Pulse Rate [Radial] 67 Pulse Rate [Radial] 76 Respiratory Rate 20 Respiratory Rate 16 Respiratory Rate 19 Blood Pressure [Left Arm] 130/73 Blood Pressure [Left Arm] 132/84 O2 Sat by Pulse Oximetry 95 O2 Sat by Pulse Oximetry 93 Intake and Output: Intake & Output 03/20/25 03/21/25 03/22/25 03/23/25 23:59 23:59 23:59 23:59 Intake Total 440 / 440 1315 / 1315 Balance 440 / 440 1315 / 1315 Physical Exam Oriented: Normal Eyes: Normal Ear: Normal Nose: Normal Throat: Normal Cardiovascular: Normal Auscultation: Bowel Sounds: Normal Palpation: Normal Tenderness: Normal Skin: Rash (right foot edema and erythema dorsal improved) Musculoskeletal: Normal Psychiatric: Normal Mood Description: Calm and Appropriate Affect: Normal Speech Pattern: Clear and Appropriate Laboratory and Diagnostics 03/23/25 04:58 03/23/25 04:58 Labs: 03/21/25 15:20 Blood Blood Culture - Preliminary 03/21/25 15:14 Blood Blood Culture - Preliminary Laboratory WBC 10.5 X10^3/uL (3.6-10.0) H 03/23/25 04:58 RBC 5.35 X10^6/uL (4.7-6.0) 03/23/25 04:58 Hgb 16.6 g/dL (13.5-18.0) 03/23/25 04:58 Hct 48.0 % (42.0-54.0) 03/23/25 04:58 MCV 89.8 fL (80.0-100.0) 03/23/25 04:58 MCH 31.1 pg (27.0-34.0) 03/23/25 04:58 MCHC 34.6 g/dL (33.0-35.0) 03/23/25 04:58 RDW 13.8 % (11.6-16.5) 03/23/25 04:58 Plt Count 289 X10^3/uL (150.0-450.0) 03/23/25 04:58 MPV 8.8 fL (7.4-11.0) 03/23/25 04:58 Neut % (Auto) 49.2 % (42.0-75.0) 03/23/25 04:58 Lymph % (Auto) 34.2 % (21.0-51.0) 03/23/25 04:58 [place] % (Auto) 12.5 % (0.0-13.0) 03/23/25 04:58 Eos % (Auto) 3.6 % (0.9-2.9) H 03/23/25 04:58 Baso % (Auto) 0.5 % (0.2-1.0) 03/23/25 04:58 Neut # (Auto) 5.2 x10^3/uL (2.2-4.8) H 03/23/25 04:58 Lymph # (Auto) 3.6 X10^3/uL (1.3-2.9) H 03/23/25 04:58 [place] # (Auto) 1.3 x10^3/uL (0.3-0.8) H 03/23/25 04:58 Eos # (Auto) 0.4 x10^3/uL (0.0-0.2) H 03/23/25 04:58 Baso # (Auto) 0.1 X10^3/uL (0.0-0.1) 03/23/25 04:58 Absolute Nucleated RBC 0.1 /100WBC 03/23/25 04:58 Sodium 140 mmol/L (136-145) 03/23/25 04:58 Corrected Sodium TNP 03/23/25 04:58 Potassium 4.2 mmol/L (3.5-5.1) 03/23/25 04:58 Chloride 103 mmol/L (98-107) 03/23/25 04:58 Carbon Dioxide 28.7 mmol/L (21-32) 03/23/25 04:58 BUN 13 mg/dL (7-18) 03/23/25 04:58 Creatinine 0.80 mg/dL (0.70-1.30) 03/23/25 04:58 Est GFR (MDRD) Af Amer > 60 (>60) 03/23/25 04:58 Est GFR (MDRD) Non-Af > 60 (>60) 03/23/25 04:58 Glucose 103 mg/dL (65-99) H 03/23/25 04:58 Lactic Acid 1.4 mmol/L (0.4-2.0) 03/21/25 15:14 Calcium 8.8 mg/dL (8.5-10.1) 03/23/25 04:58 Corrected Calcium TNP 03/23/25 04:58 Total Bilirubin 0.20 mg/dL (0.2-1.0) 03/23/25 04:58 AST 14 Units/L (15-37) L 03/23/25 04:58 ALT 26 Units/L (12-78) 03/23/25 04:58 Alkaline Phosphatase 79 Units/L (46-116) 03/23/25 04:58 Total Protein 7.5 g/dL (6.4-8.2) 03/23/25 04:58 Albumin 3.7 g/dL (3.4-5.0) 03/23/25 04:58 Globulin 3.8 g/dL (2.5-4.5) 03/23/25 04:58 Albumin/Globulin Ratio 1.0 Ratio (1.1-2.1) L 03/23/25 04:58 Vancomycin Trough 9.8 ug/mL (15-20) L 03/23/25 04:58 Plan (1) Cellulitis of right foot: Status: Acute (2) Multilevel degenerative disc disease: Status: Chronic (3) Hypothyroidism: Status: Chronic Qualifiers: Hypothyroidism type: acquired Qualified Code(s): E03.9 - Hypothyroidism, unspecified (4) Mixed hyperlipidemia: Status: Chronic
[2025-03-23] MEDS: VANCOMYCIN IV *PREMIX 1.5 G/300 ML BAG 1.5 G/300 ML PIGGYBACK IV SCH (17:39)
[2025-03-24 06:52] LABS: MEAN PLATELET VOLUME 9.1 fL (7.4-11.0); RED CELL DISTRIBUTION WIDTH 13.8 % (11.6-16.5)
[2025-03-24 07:06] LABS: CREATININE 1.00 mg/dL (0.70-1.30); eGFR NON BLACK RACES > 60 (>60)
--- NOTE | 2025-03-24 11:45 | PCM.PROG ---
Progress Note Progress Note for Day of Date of Exam: 03/24/25 Subjective Subjective: Patient seen at bedside, no acute events overnight. He is currently admitted for right foot cellulitis. The redness seems to be worse in the center of the area with some fluctuance. CT lower extremity showed some soft tissue edema, no fluid collection. It also showed foreign body. Patient reports having ankle surgery years ago and does have some hardware. He remains on IV Vanco. His blood cultures are negative. Labs/imaging reviewed: - WBC 9.4 hemoglobin 17 potassium 5.2 creatinine 1.00 - Blood cultures negative -CT reviewed: Small ossifications versus foreign bodies between the 1st and 2nd metatarsals and posterior to the talus. Soft tissue edema without fluid collection Plan: Continue IV antibiotics. Continue pain control. Add toradol prn. Monitor erythema. Keep leg elevated. Consult podiatry. Replace electrolytes as per protocol. Continue home medications. Monitor AM labs/imaging. Past Medical Family Social History Allergies: Allergies No Known Drug Allergies Allergy (Unknown, Verified 03/18/25 16:47) Onset Date: 06/02/2020 Vital Signs and I&O's Vital Signs: Vital Signs Temperature 98.6 F Temperature 97.4 F Pulse Rate [Radial] 76 Pulse Rate [Radial] 63 Respiratory Rate 20 Respiratory Rate 20 Respiratory Rate 20 Respiratory Rate 18 Blood Pressure [Left Arm] 128/69 Blood Pressure [Left Arm] 135/85 O2 Sat by Pulse Oximetry 94 O2 Sat by Pulse Oximetry 95 Intake and Output: Intake & Output 03/21/25 03/22/25 03/23/25 03/24/25 23:59 23:59 23:59 23:59 Intake Total 440 / 440 1315 / 1315 1202 / 1202 Balance 440 / 440 1315 / 1315 1202 / 1202 Physical Exam Oriented: Normal Eyes: Normal Ear: Normal Nose: Normal Throat: Normal Cardiovascular: Normal Auscultation: Bowel Sounds: Normal Tenderness: Normal Skin: Rash (right foot centralized erythema, warm, tender, slight fluctuance. No drainage. ) Musculoskeletal: Normal Psychiatric: Normal Mood Description: Calm and Appropriate Affect: Normal Speech Pattern: Clear and Appropriate Laboratory and Diagnostics 03/24/25 05:52 03/24/25 05:52 Labs: 03/21/25 15:20 Blood Blood Culture - Preliminary 03/21/25 15:14 Blood Blood Culture - Preliminary Laboratory WBC 9.4 X10^3/uL (3.6-10.0) 03/24/25 05:52 RBC 5.62 X10^6/uL (4.7-6.0) 03/24/25 05:52 Hgb 17.4 g/dL (13.5-18.0) 03/24/25 05:52 Hct 50.5 % (42.0-54.0) 03/24/25 05:52 MCV 90.0 fL (80.0-100.0) 03/24/25 05:52 MCH 31.0 pg (27.0-34.0) 03/24/25 05:52 MCHC 34.4 g/dL (33.0-35.0) 03/24/25 05:52 RDW 13.8 % (11.6-16.5) 03/24/25 05:52 Plt Count 293 X10^3/uL (150.0-450.0) 03/24/25 05:52 MPV 9.1 fL (7.4-11.0) 03/24/25 05:52 Neut % (Auto) 47.3 % (42.0-75.0) 03/24/25 05:52 Lymph % (Auto) 38.8 % (21.0-51.0) 03/24/25 05:52 [place] % (Auto) 9.5 % (0.0-13.0) 03/24/25 05:52 Eos % (Auto) 3.2 % (0.9-2.9) H 03/24/25 05:52 Baso % (Auto) 1.2 % (0.2-1.0) H 03/24/25 05:52 Neut # (Auto) 4.4 x10^3/uL (2.2-4.8) 03/24/25 05:52 Lymph # (Auto) 3.6 X10^3/uL (1.3-2.9) H 03/24/25 05:52 [place] # (Auto) 0.9 x10^3/uL (0.3-0.8) H 03/24/25 05:52 Eos # (Auto) 0.3 x10^3/uL (0.0-0.2) H 03/24/25 05:52 Baso # (Auto) 0.1 X10^3/uL (0.0-0.1) 03/24/25 05:52 Absolute Nucleated RBC 0.2 /100WBC 03/24/25 05:52 Sodium 142 mmol/L (136-145) 03/24/25 05:52 Corrected Sodium TNP 03/24/25 05:52 Potassium 5.2 mmol/L (3.5-5.1) H 03/24/25 05:52 Chloride 104 mmol/L (98-107) 03/24/25 05:52 Carbon Dioxide 33.3 mmol/L (21-32) H 03/24/25 05:52 BUN 14 mg/dL (7-18) 03/24/25 05:52 Creatinine 1.00 mg/dL (0.70-1.30) 03/24/25 05:52 Est GFR (MDRD) Af Amer > 60 (>60) 03/24/25 05:52 Est GFR (MDRD) Non-Af > 60 (>60) 03/24/25 05:52 Glucose 92 mg/dL (65-99) 03/24/25 05:52 Lactic Acid 1.4 mmol/L (0.4-2.0) 03/21/25 15:14 Calcium 9.1 mg/dL (8.5-10.1) 03/24/25 05:52 Corrected Calcium TNP 03/24/25 05:52 Total Bilirubin 0.40 mg/dL (0.2-1.0) 03/24/25 05:52 AST 21 Units/L (15-37) 03/24/25 05:52 ALT 27 Units/L (12-78) 03/24/25 05:52 Alkaline Phosphatase 83 Units/L (46-116) 03/24/25 05:52 Total Protein 8.3 g/dL (6.4-8.2) H 03/24/25 05:52 Albumin 4.0 g/dL (3.4-5.0) 03/24/25 05:52 Globulin 4.3 g/dL (2.5-4.5) 03/24/25 05:52 Albumin/Globulin Ratio 0.9 Ratio (1.1-2.1) L 03/24/25 05:52 Vancomycin Trough 9.8 ug/mL (15-20) L 03/23/25 04:58 Plan (1) Cellulitis of right foot: Status: Acute (2) Multilevel degenerative disc disease: Status: Chronic (3) Hypothyroidism: Status: Chronic Qualifiers: Hypothyroidism type: acquired Qualified Code(s): E03.9 - Hypothyroidism, unspecified (4) Mixed hyperlipidemia: Status: Chronic
[2025-03-24] MEDS: OMNIPAQUE 350 mg/mL 100 mL BTL 100 ML ONE (19:33)
[2025-03-25 05:14] LABS: MEAN PLATELET VOLUME 8.7 fL (7.4-11.0); RED CELL DISTRIBUTION WIDTH 14.1 % (11.6-16.5)
[2025-03-25 05:22] LABS: CREATININE 1.01 mg/dL (0.70-1.30); eGFR NON BLACK RACES > 60 (>60)
[2025-03-25] MEDS: PHARMACY COMMENT IV NR (05:27)
--- NOTE | 2025-03-25 10:41 | PCM.PROG ---
Progress Note Progress Note for Day of Date of Exam: 03/25/25 Subjective Subjective: Patient seen at bedside, no acute events overnight. He is currently admitted for right foot cellulitis. The redness and swelling appears to be similar to yesterday. He reports some burning pain in the foot. CT lower extremity showed some soft tissue edema, no fluid collection. It also showed foreign body. Patient reports having ankle surgery years ago and does have some hardware. He remains on IV Vanco. His blood cultures are negative. Labs/imaging reviewed: - WBC 9.2 hemoglobin 16.9 potassium 4.8 creatinine 1.01 - Blood cultures negative -CT reviewed: Small ossifications versus foreign bodies between the 1st and 2nd metatarsals and posterior to the talus. Soft tissue edema without fluid collection Plan: Consult podiatry for possible I&D. Continue IV antibiotics. Continue pain control. Monitor erythema. Keep leg elevated. Replace electrolytes as per protocol. Continue home medications. Monitor AM labs/imaging. Past Medical Family Social History Allergies: Allergies No Known Drug Allergies Allergy (Unknown, Verified 03/18/25 16:47) Onset Date: 06/02/2020 Vital Signs and I&O's Vital Signs: Vital Signs Temperature 98.0 F Temperature 98.0 F Pulse Rate [Radial] 77 Pulse Rate [Radial] 61 Respiratory Rate 20 Respiratory Rate 18 Respiratory Rate 20 Blood Pressure [Left Arm] 120/66 Blood Pressure [Left Arm] 129/75 O2 Sat by Pulse Oximetry 91 O2 Sat by Pulse Oximetry 96 Intake and Output: Intake & Output 03/22/25 03/23/25 03/24/25 03/25/25 23:59 23:59 23:59 23:59 Intake Total 1315 / 1315 1202 / 1202 1370 / 1370 310 / 310 Balance 1315 / 1315 1202 / 1202 1370 / 1370 310 / 310 Physical Exam Oriented: Normal Eyes: Normal Ear: Normal Nose: Normal Throat: Normal Cardiovascular: Normal Auscultation: Bowel Sounds: Normal Palpation: Normal Tenderness: Normal Skin: Rash (right foot centralized erythema, warm, tender, slight fluctuance. No drainage. ) Musculoskeletal: Normal Psychiatric: Normal Mood Description: Calm and Appropriate Affect: Normal Speech Pattern: Clear and Appropriate Laboratory and Diagnostics 03/25/25 04:56 03/25/25 04:56 Labs: 03/21/25 15:20 Blood Blood Culture - Preliminary 03/21/25 15:14 Blood Blood Culture - Preliminary Laboratory WBC 9.2 X10^3/uL (3.6-10.0) 03/25/25 04:56 RBC 5.48 X10^6/uL (4.7-6.0) 03/25/25 04:56 Hgb 16.9 g/dL (13.5-18.0) 03/25/25 04:56 Hct 49.0 % (42.0-54.0) 03/25/25 04:56 MCV 89.5 fL (80.0-100.0) 03/25/25 04:56 MCH 30.9 pg (27.0-34.0) 03/25/25 04:56 MCHC 34.6 g/dL (33.0-35.0) 03/25/25 04:56 RDW 14.1 % (11.6-16.5) 03/25/25 04:56 Plt Count 288 X10^3/uL (150.0-450.0) 03/25/25 04:56 MPV 8.7 fL (7.4-11.0) 03/25/25 04:56 Neut % (Auto) 42.1 % (42.0-75.0) 03/25/25 04:56 Lymph % (Auto) 38.8 % (21.0-51.0) 03/25/25 04:56 [place] % (Auto) 14.9 % (0.0-13.0) H 03/25/25 04:56 Eos % (Auto) 3.4 % (0.9-2.9) H 03/25/25 04:56 Baso % (Auto) 0.8 % (0.2-1.0) 03/25/25 04:56 Neut # (Auto) 3.9 x10^3/uL (2.2-4.8) 03/25/25 04:56 Lymph # (Auto) 3.6 X10^3/uL (1.3-2.9) H 03/25/25 04:56 [place] # (Auto) 1.4 x10^3/uL (0.3-0.8) H 03/25/25 04:56 Eos # (Auto) 0.3 x10^3/uL (0.0-0.2) H 03/25/25 04:56 Baso # (Auto) 0.1 X10^3/uL (0.0-0.1) 03/25/25 04:56 Absolute Nucleated RBC 0.1 /100WBC 03/25/25 04:56 Sodium 141 mmol/L (136-145) 03/25/25 04:56 Corrected Sodium TNP 03/25/25 04:56 Potassium 4.8 mmol/L (3.5-5.1) 03/25/25 04:56 Chloride 102 mmol/L (98-107) 03/25/25 04:56 Carbon Dioxide 32.2 mmol/L (21-32) H 03/25/25 04:56 BUN 14 mg/dL (7-18) 03/25/25 04:56 Creatinine 1.01 mg/dL (0.70-1.30) 03/25/25 04:56 Est GFR (MDRD) Af Amer > 60 (>60) 03/25/25 04:56 Est GFR (MDRD) Non-Af > 60 (>60) 03/25/25 04:56 Glucose 98 mg/dL (65-99) 03/25/25 04:56 Lactic Acid 1.4 mmol/L (0.4-2.0) 03/21/25 15:14 Calcium 9.2 mg/dL (8.5-10.1) 03/25/25 04:56 Corrected Calcium TNP 03/25/25 04:56 Total Bilirubin 0.30 mg/dL (0.2-1.0) 03/25/25 04:56 AST 19 Units/L (15-37) 03/25/25 04:56 ALT 28 Units/L (12-78) 03/25/25 04:56 Alkaline Phosphatase 80 Units/L (46-116) 03/25/25 04:56 Total Protein 8.0 g/dL (6.4-8.2) 03/25/25 04:56 Albumin 3.9 g/dL (3.4-5.0) 03/25/25 04:56 Globulin 4.1 g/dL (2.5-4.5) 03/25/25 04:56 Albumin/Globulin Ratio 1.0 Ratio (1.1-2.1) L 03/25/25 04:56 Vancomycin Trough 9.8 ug/mL (15-20) L 03/23/25 04:58 Random Vancomycin 14.4 ug/mL 03/25/25 04:56 Plan (1) Cellulitis of right foot: Status: Acute (2) Multilevel degenerative disc disease: Status: Chronic (3) Hypothyroidism: Status: Chronic Qualifiers: Hypothyroidism type: acquired Qualified Code(s): E03.9 - Hypothyroidism, unspecified (4) Mixed hyperlipidemia: Status: Chronic
--- NOTE | 2025-03-25 12:51 | DR.CONSULT ---
CONSULT Consultation for Day of: Date: 03/25/25 Chief Complaint Chief Complaint: Pain, redness and swelling to the right foot since 03/14/2025 Allergies Allergies Allergy/AdvReac Type Severity Reaction Status Date / Time No Known Drug Allergies Allergy Unknown Verified 03/18/25 16:47 History of Present Illness History of Present Illness: Patient is a 65 y/o male with a PMHx of HTN, HLD, COPD and hypothyroidism. Patient presented to the hospital last 03/21/2025 after experiencing increased redness, swelling and pain to his right foot. Patient states that he noticed his right foot started to hurt on 03/14/2025 and worsened over the next few days. He came to the ED, where he was given an oral antibiotic and sent home. He says that it did not get any better and ended up coming back this last . He was admitted for further medical management, IV antibiotics and a workup. Patient denies any nausea, fevers or vomiting at this time. patient states he does smoke a pack a day, with occasional marijuana use, but denies any other illicit drug use. Past Medical History Past Medical History: Arthritis, Asthma, COPD, Coronary Artery Disease, Dyslipidemia, GERD, Hypertension, Hypothyroidism, Kidney Stones and PUD Past Surgical History Surgical History: Angioplasty/Stents, Cholecystectomy, Ortho Surgery, Tonsillectomy and Other Family History Family Medical History: Diabetes Mellitus, Cancer, [place], Coronary Artery Disease, Heart Failure, Sudden Cardiac and Hypertension Social History Does patient currently use any type of tobacco product: Yes Type of Tobacco Use: Cigarettes Does any household member use tobacco: No Alcohol Use: None Drug Use: Marijuana Medications Home Medications: No Known Drug Allergies Allergy (Unknown, Verified 03/18/25 16:47) CONTINUE taking the following medications rosuvastatin 10 mg tablet 10 mg PO QPM 03/21/25 [History] Physical Exam Vital Signs: Vital Signs Temperature 98.0 F Pulse Rate [Radial] 77 Respiratory Rate 20 Respiratory Rate 18 Blood Pressure [Left Arm] 120/66 O2 Sat by Pulse Oximetry 91 Dermatological exam:FLuctuation appreciated to the dorsal aspect of the right foot overlying the third and fourth metatarsals. Significant erythema and edema are present to the dorsal aspect of the foot, but is currently localized to the right forefoot. No streaking or ascending cellulitis/ lymphangitis is appreciated at this time to the right foot. No open wounds or sores are appreciated at this time. Vascular: DP/PT pulses not palpable to the right foot, could be secondary to PAD component or swelling- will order CTA aorta w/ runoff. Neuro: sensation diminished to b/l feet Plan (1) Cellulitis of right foot: Status: Acute Narrative Support Text: Patient will need to be NPO for surgical intervention for tomorrow. Patient requires washout of the right foot. CT and Xray were reviewed, possible foreign object seen on imaging does not correlate with clinical symptoms and is not concern. Deeper abscess is concerning within the third interspace. CTA aorta with runoff STAT ordered (2) Multilevel degenerative disc disease: Status: Chronic (3) Hypothyroidism: Status: Chronic Qualifiers: Hypothyroidism type: acquired Qualified Code(s): E03.9 - Hypothyroidism, unspecified (4) Mixed hyperlipidemia: Status: Chronic
[2025-03-25] MEDS ORDERED: OMNIPAQUE 350 mg/mL 50 mL BTL 50 ML ONE (18:18)
[2025-03-25] MEDS ORDERED: OMNIPAQUE 350 mg/mL 100 mL BTL 100 ML ONE (18:18)
--- NOTE | 2025-03-25 22:23 | CT ---
EXAM: CTA AORTA, AND BILATERAL LOWER EXTREMITIES WITH INTRAVENOUS CONTRAST HISTORY: Swelling of the right foot. TECHNIQUE: Spiral axial CT images are obtained through the distal abdomen, pelvis and bilateral lower extremities with the administration of 150 cc of Omnipaque intravenous contrast. Three-dimensional coronal, sagittal, and oblique images are reformatted. COMPARISON: CT abdomen pelvis dated March 19, 2025. FINDINGS: CT ABDOMEN AND PELVIS: Status post cholecystectomy. The liver, spleen, pancreas, kidneys, adrenal glands, aorta, and IVC are within normal limits. There is no free fluid, free air, herniation, mass lesion, or lymphadenopathy seen. No bony fracture deformities are seen. There is no evidence for hiatal hernia, appendicitis, bowel obstruction, bowel herniation, colitis, or diverticulitis. The patient is status post L4-S1 lumbar laminectomies and posterior fusion with pedicle screws and stabilization rods in situ. CTA ABDOMEN AND PELVIS: Aortoiliac atherosclerotic disease, marked by calcified mural plaques. No aortic aneurysm, dissection, or occlusion is seen. The celiac axis, SMA, WALKER, and renal arteries are widely patent. The common iliac arteries are patent. CTA LOWER EXTREMITIES: There is mild atherosclerotic calcified mural plaque in the left common femoral artery, with minimal luminal encroachment/stenosis. There is mild atherosclerotic calcified mural plaque seen in the distal superficial femoral arteries, with minimal luminal encroachment/stenosis. The common femoral artery, superficial femoral artery, popliteal arteries, profunda femoral artery are otherwise widely patent bilaterally. The right sided trifurcation runoff vessels are patent throughout, with the dominant vessel being the right SOFTWARE DESIGN MANAGER; there is mild to moderate attenuation of contrast opacification of the right distal right PRAFUL at the level of the ankle, which may represent limited inflow from focal luminal stenosis in this region There proximal left trifurcation runoff vessels are patent, but there is severe attenuation of trifurcation opacification from the middle calf region to the left foot, which may reflect limited inflow, possibly secondary to occult runoff vessel stenoses. Correlation with MRA may be beneficial for optimal evaluation of vessel patency in the distal leg and ankle/foot regions. IMPRESSION: 1. Aortoiliac atherosclerotic disease, marked by calcified mural plaques. 2. No aortic aneurysm, dissection, or occlusion is seen. 3. The celiac axis, SMA, WALKER, and renal arteries are widely patent. 4. Mild atherosclerotic calcified mural plaque in the left CENTRIFUGAL OPERATOR, with minimal luminal encroachment/stenosis. 5. Mild atherosclerotic calcified mural plaque seen in the distal bilateral SFAs, with minimal luminal encroachment/stenosis. 6. Right sided trifurcation runoff vessels are patent throughout, with the dominant vessel being the right SOFTWARE DESIGN MANAGER; there is mild to moderate attenuation of contrast opacification of the right distal right PRAFUL at the level of the ankle, which may represent limited inflow from focal luminal stenosis in this region 7. Proximal left trifurcation runoff vessels are patent, but there is severe attenuation of trifurcation opacification from the middle calf region to the left foot, which may reflect limited inflow, possibly secondary to occult runoff vessel stenoses. 8. Correlation with MRA (and/or conventional DSA) may be beneficial for optimal evaluation of vessel patency in the distal leg and ankle/foot regions. THIS IS AN ELECTRONICALLY VERIFIED FINAL REPORT 03/25/2025 10:20 PM - Electronically signed by Roxanna Yang MD
[2025-03-26 06:02] LABS: MEAN PLATELET VOLUME 9.2 fL (7.4-11.0); RED CELL DISTRIBUTION WIDTH 13.6 % (11.6-16.5)
[2025-03-26] MEDS: TORADOL 15 MG VIAL IVP PRN (06:05)
[2025-03-26 06:11] LABS: CREATININE 0.97 mg/dL (0.70-1.30); eGFR NON BLACK RACES > 60 (>60)
[2025-03-26] MEDS: NS 1,000 ML IV 1,000 ML IV SCH (09:00)
--- NOTE | 2025-03-26 09:29 | NOTE.SOAP ---
Soap Note Note for Day of Date of Exam: 03/26/25 Subjective Data Subjective Data: Patient presenting for surgical intervention of right foot, concern of superficial vs deep space abscess Assessment Assessment: Surgical intervention today, erythema and edema still present to dorsal foot with fluctuance appreciated Plan Plan: Reviewed Angiogram aorta w/ runoff imaging- patient has three vessel runoff to the right foot No vascular consult required unless report indicates need Patient will undergo incision and drainage of right foot with Abx bead placement Patient will remain in house, we will examine the foot again post operatively 03/27/25 and determine next steps
[2025-03-26] MEDS: LR 1,000 ML IV 1,000 ML IV ONE (09:39)
[2025-03-26] MEDS: VANCOMYCIN HCL ONE (09:42)
[2025-03-26] MEDS: BETADINE SOLN ONE (09:43)
[2025-03-26] MEDS: TOBRAMYCIN SULFATE ONE (09:43)
[2025-03-26] MEDS: DIPRIVAN VIAL 20 ML ONE (09:44)
[2025-03-26] MEDS ORDERED: OFIRMEV IV 1000 MG VIAL 0 MG/0 ML VIAL IV ONE (09:44)
[2025-03-26] MEDS: VERSED ONE (09:44)
[2025-03-26] MEDS: TORADOL 30 MG VIAL ONE (09:44)
[2025-03-26] MEDS: XYLOCAINE 1% and EPINEPHRINE 1:100,000 ONE (09:52)
[2025-03-26] MEDS: MARCAINE 0.25% INJ ONE (09:52)
[2025-03-26] MEDS: EPHEDRINE SULFATE INJ ONE (10:17)
--- NOTE | 2025-03-26 10:37 | PCM.PROG ---
Progress Note Progress Note for Day of Date of Exam: 03/26/25 Subjective Subjective: Patient seen at bedside, no acute events overnight. He was seen by podiatry yesterday. He is scheduled to have surgical intervention today for his right foot infection. His right foot looks about the same as yesterday, he does have centralized erythema and fluctuance. He states his pain is about the same. He also had a CTA runoff done yesterday. He remains on IV Vanc. Labs/imaging reviewed - WBC 9.9 hemoglobin 17.3 sodium 142 creatinine 0.97 - CT runoff reviewed - Blood cultures negative Plan: Continue current treatment. Follow podiatry recommendations. Patient is currently n.p.o. for procedure. Continue IV antibiotics. Start gentle hydration since patient is NPO. Replace electrolytes as per protocol. Monitor a.m. labs and imaging. Past Medical Family Social History Allergies: Allergies No Known Drug Allergies Allergy (Unknown, Verified 03/18/25 16:47) Onset Date: 06/02/2020 Vital Signs and I&O's Vital Signs: Vital Signs Temperature 98.1 F Temperature 97.6 F Pulse Rate [Radial] 72 Pulse Rate [Radial] 65 Respiratory Rate 20 Respiratory Rate 18 Respiratory Rate 18 Respiratory Rate 19 Blood Pressure [Left Arm] 122/67 Blood Pressure [Left Arm] 138/78 O2 Sat by Pulse Oximetry 94 O2 Sat by Pulse Oximetry 91 Intake and Output: Intake & Output 03/23/25 03/24/25 03/25/25 03/26/25 23:59 23:59 23:59 23:59 Intake Total 1202 / 1202 1370 / 1370 1290 / 1290 882 / 882 Output Total 850 / 850 Balance 1202 / 1202 1370 / 1370 1290 / 1290 32 / 32 Physical Exam Oriented: Normal Eyes: Normal Ear: Normal Nose: Normal Throat: Normal Cardiovascular: Normal : Normal Auscultation: Bowel Sounds: Normal Tenderness: Normal Skin: Rash (right foot centralized erythema, warm, tender, slight fluctuance. No drainage. ) Musculoskeletal: Normal Psychiatric: Normal Mood Description: Calm and Appropriate Affect: Normal Speech Pattern: Clear and Appropriate Laboratory and Diagnostics 03/26/25 05:13 03/26/25 05:13 Labs: 03/21/25 15:20 Blood Blood Culture - Preliminary 03/21/25 15:14 Blood Blood Culture - Preliminary Laboratory WBC 9.9 X10^3/uL (3.6-10.0) 03/26/25 05:13 RBC 5.55 X10^6/uL (4.7-6.0) 03/26/25 05:13 Hgb 17.3 g/dL (13.5-18.0) 03/26/25 05:13 Hct 49.5 % (42.0-54.0) 03/26/25 05:13 MCV 89.3 fL (80.0-100.0) 03/26/25 05:13 MCH 31.2 pg (27.0-34.0) 03/26/25 05:13 MCHC 34.9 g/dL (33.0-35.0) 03/26/25 05:13 RDW 13.6 % (11.6-16.5) 03/26/25 05:13 Plt Count 295 X10^3/uL (150.0-450.0) 03/26/25 05:13 MPV 9.2 fL (7.4-11.0) 03/26/25 05:13 Neut % (Auto) 53.5 % (42.0-75.0) 03/26/25 05:13 Lymph % (Auto) 28.3 % (21.0-51.0) 03/26/25 05:13 [place] % (Auto) 14.5 % (0.0-13.0) H 03/26/25 05:13 Eos % (Auto) 2.7 % (0.9-2.9) 03/26/25 05:13 Baso % (Auto) 1.0 % (0.2-1.0) 03/26/25 05:13 Neut # (Auto) 5.3 x10^3/uL (2.2-4.8) H 03/26/25 05:13 Lymph # (Auto) 2.8 X10^3/uL (1.3-2.9) 03/26/25 05:13 [place] # (Auto) 1.4 x10^3/uL (0.3-0.8) H 03/26/25 05:13 Eos # (Auto) 0.3 x10^3/uL (0.0-0.2) H 03/26/25 05:13 Baso # (Auto) 0.1 X10^3/uL (0.0-0.1) 03/26/25 05:13 Absolute Nucleated RBC 0.1 /100WBC 03/26/25 05:13 Sodium 142 mmol/L (136-145) 03/26/25 05:13 Corrected Sodium TNP 03/26/25 05:13 Potassium 4.7 mmol/L (3.5-5.1) 03/26/25 05:13 Chloride 104 mmol/L (98-107) 03/26/25 05:13 Carbon Dioxide 29.1 mmol/L (21-32) 03/26/25 05:13 BUN 13 mg/dL (7-18) 03/26/25 05:13 Creatinine 0.97 mg/dL (0.70-1.30) 03/26/25 05:13 Est GFR (MDRD) Af Amer > 60 (>60) 03/26/25 05:13 Est GFR (MDRD) Non-Af > 60 (>60) 03/26/25 05:13 Glucose 94 mg/dL (65-99) 03/26/25 05:13 Lactic Acid 1.4 mmol/L (0.4-2.0) 03/21/25 15:14 Calcium 9.2 mg/dL (8.5-10.1) 03/26/25 05:13 Corrected Calcium TNP 03/26/25 05:13 Total Bilirubin 0.40 mg/dL (0.2-1.0) 03/26/25 05:13 AST 51 Units/L (15-37) H 03/26/25 05:13 ALT 83 Units/L (12-78) H 03/26/25 05:13 Alkaline Phosphatase 92 Units/L (46-116) 03/26/25 05:13 Total Protein 8.4 g/dL (6.4-8.2) H 03/26/25 05:13 Albumin 4.2 g/dL (3.4-5.0) 03/26/25 05:13 Globulin 4.2 g/dL (2.5-4.5) 03/26/25 05:13 Albumin/Globulin Ratio 1.0 Ratio (1.1-2.1) L 03/26/25 05:13 Vancomycin Trough 9.8 ug/mL (15-20) L 03/23/25 04:58 Random Vancomycin 14.4 ug/mL 03/25/25 04:56 Plan (1) Cellulitis of right foot: Status: Acute (2) Multilevel degenerative disc disease: Status: Chronic (3) Hypothyroidism: Status: Chronic Qualifiers: Hypothyroidism type: acquired Qualified Code(s): E03.9 - Hypothyroidism, unspecified (4) Mixed hyperlipidemia: Status: Chronic (5) PVD (peripheral vascular disease): Status: Chronic
--- NOTE | 2025-03-26 10:42 | OR.IMMED ---
IMMEDIATE POST-OP NOTE Immediate Post-Op Note Date of surgery/procedure: 03/26/25 Pre-Op Diagnosis: Abscess, right foot Cellulitis, right foot Post-Op Diagnosis: Abscess, right foot Cellulitis, right foot Procedure: Incision and drainage with Antibiotic bead placement, right foot Description of Procedure: Please see dictation Surgeon/Retail Presentation Specialist: Dr. Missy Adrian Findings: Minimal purulence encountered, localized to soft tissue subcutaneous tissue and deep tissue- did not extend to the bone Specimens Removed: Culture swab sent for anaerobic and aerobic Estimated Blood Loss: 10 cc Drains: NONE Complications: None Progress Notes: See dictation Discharge Progress Notes: Left open with antibiotic beads and retention sutures at this time Will remain inpatient, will examine surgical site tomorrow to examine fluctuance and erythema
--- NOTE | 2025-03-26 11:04 | DR.OPNOTE ---
OP NOTE Pre-Op Diagnosis: Abscess, right foot; Cellulitis, right foot Post-Op Diagnosis: Abscess, right foot; Cellulitis, right foot Procedure Date Date Of Procedure: 03/26/25 Procedure: Incision and drainage with Antibiotic bead placement, right foot Type of Anesthesia: Local Findings: The patient presented to the preoperative holding area having been NPO for greater than eight hours. History and Physical and all preoperative studies were reviewed and there was no contraindications to the proposed procedure. The patient confirmed the procedure to be performed. The risks and benefits of the procedure were again discussed with the patient prior to the procedure and the patient verbalized understanding. While in preoperative holding area, the right foot was marked with inedible ink. The patient was taken to the operating room and transferred to the operating table in the supine position. The appropriate anesthetics were administered and supplemented with 12 cc of 0.25% Marcaine plain to the right foot. The foot was then prepped and draped in the usual aseptic manner. The right lower extremity was then lowered to the OR table and sterile draping was then completed. A time-out was performed to verify the correct patient and procedure and extremity and the following procedure was done. Attention was directed towards the dorsal third interspace of the right foot where fluctuance is most appreciated. Utilizing a number 15 blade, a longitudinal incision was made directly over the appreciated fluctuance. Upon incision, estuardo purulence was encountered. Two separate culture swabs were o btained and sent to microbiology for further analysis. The incision was then deepened down to overly the third metatarsal. It should be noted that bone was not encountered and the soft tissue envelope anterior to the bone was not compromised at this time. Utilizing a curved mosquito hemostat, tracking was not appreciated dorsally, plantarly, medial or lateral. There was some necrotic tissue appreciated in the subcutaneous layer/deep tissue layer near where the incision and purulence was first encountered. This was debrided away with a rongeur. The surgical site was then copiously irrigated with Protosan. The foot was compressed in all directions and no purulence was encountered. The soft tissue was examined and appeared healthy at this time. Antibiotic beads were mixed with Vancomycin powder and Tobramycin powder and molded into circular beads. These were strung on a 3-0 nylon and placed in the surgical site. Three retention sutures were then placed utilizing 3-0 nylon. Post-operative dressings included xeroform, 4x4s, abds, webril and an TREVOR wrap to the right foot. Patient tolerated the procedure and anesthesia well. He was then taken from the OR and placed in recovery with vital signs stable and vascular status intact to the right lower extremity. Following recovery, the patient will return to inpatient floors and will remain until we see the surgical site tomorrow for further medical management. Specimen/Pathology: Culture swab dorsal foot to micro EBL: 10 cc Drains/Tubes Placed: None Complications:: None Disposition/Condition: Pt. tolerated procedure without difficulty. Extubated in the OR and taken to PACU in stable condition.
[2025-03-27 04:56] LABS: MEAN PLATELET VOLUME 8.6 fL (7.4-11.0); RED CELL DISTRIBUTION WIDTH 13.8 % (11.6-16.5)
[2025-03-27 05:02] LABS: CREATININE 0.86 mg/dL (0.70-1.30)
[2025-03-27 05:09] LABS: CREATININE 1.07 mg/dL (0.70-1.30); eGFR NON BLACK RACES > 60 (>60)
[2025-03-27] MEDS: PHARMACY COMMENT IV ONE (05:13)
[2025-03-27] MEDS ORDERED: TORADOL 15 MG VIAL IVP PRN (10:28)
--- NOTE | 2025-03-27 10:29 | PCM.PROG ---
Progress Note Progress Note for Day of Date of Exam: 03/27/25 Subjective Subjective: Patient seen at bedside, no acute events overnight. He did have the I&D done yesterday by podiatry. Wound Cx are pending. He reports increased pain since after the procedure. He remains on IV antibiotics. Labs/imaging reviewed - WBC 10 hemoglobin 15.8 sodium 141 creatinine 0.86 - CT runoff reviewed - Blood cultures negative -Wound Cx pending Plan: Continue current treatment. Follow podiatry recommendations. Continue IV antibiotics. Follow pending cultures. Continue hydration. Continue pain control, increase toradol to 30 mg q6prn. Replace electrolytes as per protocol. Dr Morales has also been consulted to review CTA results. Monitor a.m. labs and imaging. Past Medical Family Social History Allergies: Allergies No Known Drug Allergies Allergy (Unknown, Verified 03/18/25 16:47) Onset Date: 06/02/2020 Vital Signs and I&O's Vital Signs: Vital Signs Temperature 97.9 F Temperature 97.7 F Pulse Rate [Radial] 68 Pulse Rate [Radial] 68 Respiratory Rate 20 Respiratory Rate 20 Respiratory Rate 18 Respiratory Rate 20 Blood Pressure [Left Arm] 128/61 Blood Pressure [Left Arm] 131/75 O2 Sat by Pulse Oximetry 96 O2 Sat by Pulse Oximetry 94 Intake and Output: Intake & Output 03/24/25 03/25/25 03/26/25 03/27/25 23:59 23:59 23:59 23:59 Intake Total 1370 / 1370 1290 / 1290 2251 / 2251 915 / 915 Output Total 860 / 860 400 / 400 Balance 1370 / 1370 1290 / 1290 1391 / 1391 515 / 515 Physical Exam Oriented: Normal Eyes: Normal Ear: Normal Nose: Normal Throat: Normal Cardiovascular: Normal : Normal Auscultation: Bowel Sounds: Normal Palpation: Normal Tenderness: Normal Skin: Wound (foot wrapped in rosa bandage) Musculoskeletal: Normal Psychiatric: Normal Mood Description: Calm and Appropriate Affect: Normal Speech Pattern: Clear and Appropriate Laboratory and Diagnostics 03/27/25 04:28 03/27/25 04:28 Labs: 03/26/25 10:05 Foot - Right Wound Gram Stain - Final 03/21/25 15:20 Blood Blood Culture - Preliminary 03/21/25 15:14 Blood Blood Culture - Preliminary Laboratory WBC 10.0 X10^3/uL (3.6-10.0) 03/27/25 04:28 RBC 5.18 X10^6/uL (4.7-6.0) 03/27/25 04:28 Hgb 15.8 g/dL (13.5-18.0) 03/27/25 04:28 Hct 46.6 % (42.0-54.0) 03/27/25 04:28 MCV 89.9 fL (80.0-100.0) 03/27/25 04:28 MCH 30.6 pg (27.0-34.0) 03/27/25 04:28 MCHC 34.0 g/dL (33.0-35.0) 03/27/25 04:28 RDW 13.8 % (11.6-16.5) 03/27/25 04:28 Plt Count 269 X10^3/uL (150.0-450.0) 03/27/25 04:28 MPV 8.6 fL (7.4-11.0) 03/27/25 04:28 Neut % (Auto) 51.3 % (42.0-75.0) 03/27/25 04:28 Lymph % (Auto) 32.1 % (21.0-51.0) 03/27/25 04:28 Harris % (Auto) 12.7 % (0.0-13.0) 03/27/25 04:28 Eos % (Auto) 3.3 % (0.9-2.9) H 03/27/25 04:28 Baso % (Auto) 0.6 % (0.2-1.0) 03/27/25 04:28 Neut # (Auto) 5.1 x10^3/uL (2.2-4.8) H 03/27/25 04:28 Lymph # (Auto) 3.2 X10^3/uL (1.3-2.9) H 03/27/25 04:28 Harris # (Auto) 1.3 x10^3/uL (0.3-0.8) H 03/27/25 04:28 Eos # (Auto) 0.3 x10^3/uL (0.0-0.2) H 03/27/25 04:28 Baso # (Auto) 0.1 X10^3/uL (0.0-0.1) 03/27/25 04:28 Absolute Nucleated RBC 0.0 /100WBC 03/27/25 04:28 Sodium 141 mmol/L (136-145) 03/27/25 04:28 Corrected Sodium TNP 03/27/25 04:28 Potassium 4.3 mmol/L (3.5-5.1) 03/27/25 04:28 Chloride 105 mmol/L (98-107) 03/27/25 04:28 Carbon Dioxide 27.2 mmol/L (21-32) 03/27/25 04:28 BUN 17 mg/dL (7-18) 03/27/25 04:28 Creatinine 0.86 mg/dL (0.70-1.30) 03/27/25 04:28 Creatinine 1.07 mg/dL (0.70-1.30) 03/27/25 04:28 Est GFR (MDRD) Af Amer > 60 (>60) 03/27/25 04:28 Est GFR (MDRD) Non-Af > 60 (>60) 03/27/25 04:28 Glucose 90 mg/dL (65-99) 03/27/25 04:28 Lactic Acid 1.4 mmol/L (0.4-2.0) 03/21/25 15:14 Calcium 8.6 mg/dL (8.5-10.1) 03/27/25 04:28 Corrected Calcium TNP 03/27/25 04:28 Total Bilirubin 0.40 mg/dL (0.2-1.0) 03/27/25 04:28 AST 117 Units/L (15-37) H 03/27/25 04:28 ALT 186 Units/L (12-78) H 03/27/25 04:28 Alkaline Phosphatase 97 Units/L (46-116) 03/27/25 04:28 Total Protein 7.3 g/dL (6.4-8.2) 03/27/25 04:28 Albumin 3.6 g/dL (3.4-5.0) 03/27/25 04:28 Globulin 3.7 g/dL (2.5-4.5) 03/27/25 04:28 Albumin/Globulin Ratio 1.0 Ratio (1.1-2.1) L 03/27/25 04:28 Vancomycin Trough 16.3 ug/mL (15-20) 03/27/25 04:28 Random Vancomycin 14.4 ug/mL 03/25/25 04:56 Plan (1) Cellulitis of right foot: Status: Acute (2) Multilevel degenerative disc disease: Status: Chronic (3) Hypothyroidism: Status: Chronic Qualifiers: Hypothyroidism type: acquired Qualified Code(s): E03.9 - Hypothyroidism, unspecified (4) Mixed hyperlipidemia: Status: Chronic (5) PVD (peripheral vascular disease): Status: Chronic
--- NOTE | 2025-03-27 12:55 | NOTE.SOAP ---
Soap Note Note for Day of Date of Exam: 03/27/25 Subjective Data Subjective Data: Mr. Cleaning is resting comfortably in bed on evaluation. He states he has pain to the surgical site during the dressing change. Assessment Assessment: Dressings were removed and surgical site was examined Cellulitis has improved significantly with minimal edema present. Tenderness is appreciated at the site Beads are noted to be intact to surgical site with 3 separate retention sutures No purulence is noted Plan Plan: CTA imaging was reviewed by Dr. Morales and he will take patient for intervention tomorrow 03/28, following his procedure we will remove the antibiotic beads and close the surgical site Further recs will follow surgical intervention tomorrow Please keep patient NPO at midnight
--- NOTE | 2025-03-28 00:04 | DR.CONSULT ---
CONSULT Consultation for Day of: Date: 03/27/25 Chief Complaint Chief Complaint: Pain swelling and abscess right dorsal foot Allergies Allergies Allergy/AdvReac Type Severity Reaction Status Date / Time No Known Drug Allergies Allergy Unknown Verified 03/18/25 16:47 History of Present Illness History of Present Illness: This is a 64-year-old male with significant tobacco abuse history, hypertension hypothyroidism hyperlipidemia COPD with failed treatment of cellulitis of the right foot. He was seen in consultation after being admitted for IV antibiotics. Podiatry had performed incision and drainage of this and ordered CT angiogram because did not feel pulses. He denies stroke or myocardial infarction. CT angiogram showed a dominant runoff vessel on the r ight side to be the posterior tibial with anterior tibial to show contrast opacification to the level ankle but not the foot patient also has significant trifurcation level disease of the left side as well. Podiatry has seen him and is planning on removal of antibiotic beads and delayed closure. I have been asked to the patient for the abnormal findings on CT angiogram. Past Medical History Past Medical History: Arthritis, Asthma, COPD, Coronary Artery Disease, Dyslipidemia, GERD, Hypertension, Hypothyroidism, Kidney Stones and PUD Past Surgical History Surgical History: Angioplasty/Stents, Cholecystectomy, Ortho Surgery, Tonsillectomy and Other Family History Family Medical History: Diabetes Mellitus, Cancer, SD, Coronary Artery Disease, Heart Failure, Sudden Cardiac and Hypertension Social History Does patient currently use any type of tobacco product: Yes Type of Tobacco Use: Cigarettes Does any household member use tobacco: No Alcohol Use: None Drug Use: Marijuana Medications Home Medications: No Known Drug Allergies Allergy (Unknown, Verified 03/18/25 16:47) CONTINUE taking the following medications rosuvastatin 10 mg tablet 10 mg PO QPM 03/21/25 [History] Aspirin 81 mg daily Percocet Levothyroxine 25 mcg a day Meloxicam 15 mg daily Metoprolol succinate 25 mg daily Review of Systems Constitutional: See HPI Eyes: No Symptoms Reported ENT: No Symptoms Reported Respiratory: See HPI (He has history of COPD) Cardiovascular: No Symptoms Reported (Has had coronary stents placed in the past. Denies myocardial infarction) Gastrointestinal: No Symptoms Reported Genitourinary: No Symptoms Reported Musculoskeletal: No Symptoms Reported Skin: See HPI Neurological: No Symptoms Reported Physical Exam Vital Signs: Vital Signs Temperature 97.9 F Temperature 98.3 F Pulse Rate [Radial] 73 Pulse Rate [Radial] 69 Respiratory Rate 16 Respiratory Rate 18 Respiratory Rate 20 Respiratory Rate 20 Respiratory Rate 20 Respiratory Rate 21 Blood Pressure [Left Arm] 130/75 Blood Pressure [Left Arm] 120/72 O2 Sat by Pulse Oximetry 92 O2 Sat by Pulse Oximetry 91 Oriented: Normal, Time, Person and Place Eyes: Normal Ear: Normal Nose: Normal Throat: Normal Respiratory: Clear Throughout Cardiovascular: Normal and Other (No palpable pulses either distal ankle, size wound not undressed of the right foot at this time.) : Normal Auscultation: Bowel Sounds: Normal Palpation: Normal Tenderness: Normal Skin: Normal Musculoskeletal: Normal Psychiatric: Normal Mood Description: Calm Affect: Normal Speech Pattern: Clear and Appropriate Plan (1) Cellulitis of right foot: Status: Acute Plan: Continue IV antibiotics. Patient to have removal of antibiotic beads and delayed primary closure of the right foot wound tomorrow. (2) Multilevel degenerative disc disease: Status: Chronic (3) Hypothyroidism: Status: Chronic Qualifiers: Hypothyroidism type: acquired Qualified Code(s): E03.9 - Hypothyroidism, unspecified (4) Mixed hyperlipidemia: Status: Chronic (5) PVD (peripheral vascular disease): Status: Chronic Plan: Patient will require right arm table arteriogram possible peripheral based intervention. Left leg will need to be done in the future. Risk and benefits of the procedure explained the patient agrees to proceed.
[2025-03-28 00:23] VITALS: TEMP 98
[2025-03-28 06:22] LABS: MEAN PLATELET VOLUME 8.6 fL (7.4-11.0); RED CELL DISTRIBUTION WIDTH 14.0 % (11.6-16.5)
[2025-03-28 06:33] LABS: CREATININE 0.92 mg/dL (0.70-1.30); eGFR NON BLACK RACES > 60 (>60)
[2025-03-28] MEDS: LR 1,000 ML IV 600 ML IV PRN (07:30)
[2025-03-28 07:38] VITALS: O2SAT 92
[2025-03-28] MEDS: VERSED IVP PRN (07:45)
[2025-03-28] MEDS: ZOFRAN INJ 4 MG VIAL IVP PRN (07:46)
[2025-03-28] MEDS: PEPCID 20 MG VIAL IVP PRN (07:47)
[2025-03-28] MEDS: LR 1,000 ML IV 1,000 ML IV ONE (07:47)
--- NOTE | 2025-03-28 07:47 | RAD ---
EXAM: CHEST, 1 VIEW HISTORY: PRE OP-CELLULITIS RIGHT FOOT; COPD, HTN, EMPHYSEMA SX: BACK, KARIE WRISTS, RIGHT ANKLE/FOOT COMPARISON: 08/30/2024 FINDINGS: The cardiomediastinal silhouette is stable. Chronic appearing interstitial changes in the lungs. No acute airspace disease. No pneumothorax or effusion. No acute osseous abnormality. IMPRESSION: No acute cardiopulmonary disease. THIS IS AN ELECTRONICALLY VERIFIED FINAL REPORT 03/28/2025 7:34 AM - Electronically signed by Clive Colbert MD
[2025-03-28] MEDS: REGLAN INJ 10 MG VIAL IVP PRN (07:49)
[2025-03-28] MEDS: DUONEB 0.5 MG/3 MG (3 mL) NEB ONE (07:51)
[2025-03-28] MEDS: NS 100 ML IV 100 ML ONE (07:53)
[2025-03-28] MEDS: ANCEF VIAL 1 GRAM ONE (07:53)
[2025-03-28] MEDS: ZOFRAN INJ 4 MG VIAL ONE (07:57)
[2025-03-28] MEDS: DIPRIVAN VIAL 20 ML ONE ×2 (07:57)
[2025-03-28] MEDS: FENTANYL VIAL INJ 100 mcg ONE (07:57)
[2025-03-28] MEDS: VERSED ONE (07:57)
[2025-03-28] MEDS: PRECEDEX INJ VIAL ONE (07:57)
[2025-03-28] MEDS: PEPCID 20 MG VIAL ONE (07:57)
[2025-03-28] MEDS: ANCEF VIAL 1 GRAM IV PRN (07:57)
[2025-03-28] MEDS: REGLAN INJ 10 MG VIAL ONE (07:57)
[2025-03-28] MEDS: DECADRON INJ ONE (07:57)
[2025-03-28] MEDS: KETAMINE HCL IV PRN (08:04)
[2025-03-28] MEDS: XYLOCAINE 2 % (PLAIN) ONE (08:04)
[2025-03-28] MEDS: PRECEDEX INJ VIAL IVP PRN (08:04)
[2025-03-28] MEDS: DIPRIVAN VIAL 300 ML IVP PRN (08:04)
[2025-03-28] MEDS ORDERED: XYLOCAINE 2 % (PLAIN) PRN (08:04)
[2025-03-28] MEDS: DECADRON INJ IVP PRN (08:07)
--- NOTE | 2025-03-28 08:09 | EKG ---
Test Reason : surgery Blood Pressure : */* mmHG Vent. Rate : 69 BPM Atrial Rate : 69 BPM P-R Int : 188 ms QRS Dur : 98 ms QT Int : 398 ms P-R-T Axes : 51 68 40 degrees QTc Int : 426 ms Normal sinus rhythm Normal ECG When compared with ECG of 07-APR-2023 23:26, No significant change was found Confirmed by Irvin Knox MD ([id number]) on 03/28/2025 10:53:22 AM Referred By: Confirmed By: Irvin Knox MD
[2025-03-28] MEDS: FENTANYL VIAL INJ 100 mcg IVP PRN (08:10)
[2025-03-28] MEDS: BETADINE SOLN ONE (08:13)
[2025-03-28] MEDS: MARCAINE 0.5% ONE (08:23)
[2025-03-28] MEDS: HEPARIN 1,000 UNIT/500 ML-NS 3,000 UNIT/1,500 ML IV.SOLN ONE (08:23)
[2025-03-28] MEDS: HEPARIN SODIUM INJ 5000 UNITS IVP PRN (08:25)
[2025-03-28] MEDS: VISIPAQUE 50 ML ONE (08:25)
[2025-03-28] MEDS: HEPARIN SODIUM INJ 5000 UNITS ONE (08:25)
[2025-03-28] MEDS: VISIPAQUE 100 ML ONE (08:25)
[2025-03-28] MEDS: MARCAINE 0.25% INJ ONE (09:07)
--- NOTE | 2025-03-28 09:20 | OR.IMMED ---
IMMEDIATE POST-OP NOTE Immediate Post-Op Note Date of surgery/procedure: 03/28/25 Pre-Op Diagnosis: Critical ischemia right foot with poorly healing area of abscess Post-Op Diagnosis: Same, see findings Procedure: Aortogram, arteriogram right lower extremity, balloon angioplasty distal dorsalis pedis and anterior tibial artery Description of Procedure: Dictated Surgeon/Rental Sales Agent: Eric Morales MD, FACS Findings: Posterior tibial is large. Peroneal artery is small into the ankle. Anterior tibial artery ends at the ankle but is able to get across this into dorsalis pedis and ballooned the dorsalis pedis. This is near where a screw has been placed previously. Estimated Blood Loss: Less than 50 cc Complications: none Discharge Progress Notes: Patient to have removal of the antibiotic beads and closure of the wound and delayed fashion. Patient currently growing MRSA. Patient to be discharged and will follow-up with me in 1 week to reassess and to consider intervention of the left leg
--- NOTE | 2025-03-28 09:37 | PCM.PROG ---
Progress Note Progress Note for Day of Date of Exam: 03/28/25 Subjective Subjective: Patient admitted for cellulitis and abscess of the right foot. He did have the I&D by podiatry. Wound Cx Gram-positive staph. He remains on IV antibiotics. No acute events overnight. This morning his scheduled for another surgical procedure. Labs/imaging reviewed - WBC 8.9, hemoglobin 16.3, platelets 282, sodium 141, potassium 4.4, creatinine 0.92, glucose 91 - CT runoff reviewed - Blood cultures negative - Wound Cx Gram-positive staph Plan: Continue current treatment. Follow podiatry recommendations. Continue IV antibiotics. Follow cultures. Continue hydration. Continue pain control. Replace electrolytes as per protocol. Dr Morales has also been consulted to review CTA results, follow recommendations. This morning he is scheduled to have the antibiotic beads removed and closure of the surgical site. Otherwise continue current treatment plan. Monitor a.m. labs and imaging. Past Medical Family Social History Allergies: Allergies No Known Drug Allergies Allergy (Unknown, Verified 03/18/25 16:47) Onset Date: 06/02/2020 Review of Systems ROS changes noted: see HPI Vital Signs and I&O's Vital Signs: Vital Signs Temperature 98.0 F Pulse Rate [Radial] 65 Pulse Rate 67 Respiratory Rate 18 Respiratory Rate 20 Blood Pressure [Left Arm] 121/76 Blood Pressure 122/79 O2 Sat by Pulse Oximetry 92 O2 Sat by Pulse Oximetry 91 Intake and Output: Intake & Output 03/25/25 03/26/25 03/27/25 03/28/25 23:59 23:59 23:59 23:59 Intake Total 1290 / 1290 2251 / 2251 3035 / 3035 3283 / 3283 Output Total 860 / 860 1550 / 1550 4405 / 4405 Balance 1290 / 1290 1391 / 1391 1485 / 1485 -1122 / -1122 Physical Exam Oriented: Normal, Time, Person and Place Eyes: Normal Ear: Normal Nose: Normal Throat: Normal Respiratory: Normal Cardiovascular: Normal : Normal Auscultation: Bowel Sounds: Normal Tenderness: Normal Skin: Normal Musculoskeletal: Right and Foot Psychiatric: Normal Mood Description: Calm Affect: Normal Speech Pattern: Clear and Appropriate Laboratory and Diagnostics 03/28/25 05:49 03/28/25 05:49 Labs: 03/26/25 10:05 Foot - Right Wound Gram Stain - Final 03/26/25 10:05 Foot - Right Wound Culture - Preliminary Staphylococcus Aureus 03/21/25 15:20 Blood Blood Culture - Final 03/21/25 15:14 Blood Blood Culture - Final Laboratory WBC 8.9 X10^3/uL (3.6-10.0) 03/28/25 05:49 RBC 5.37 X10^6/uL (4.7-6.0) 03/28/25 05:49 Hgb 16.3 g/dL (13.5-18.0) 03/28/25 05:49 Hct 48.6 % (42.0-54.0) 03/28/25 05:49 MCV 90.4 fL (80.0-100.0) 03/28/25 05:49 MCH 30.4 pg (27.0-34.0) 03/28/25 05:49 MCHC 33.7 g/dL (33.0-35.0) 03/28/25 05:49 RDW 14.0 % (11.6-16.5) 03/28/25 05:49 Plt Count 282 X10^3/uL (150.0-450.0) 03/28/25 05:49 MPV 8.6 fL (7.4-11.0) 03/28/25 05:49 Neut % (Auto) 47.3 % (42.0-75.0) 03/28/25 05:49 Lymph % (Auto) 33.1 % (21.0-51.0) 03/28/25 05:49 Weakley % (Auto) 14.0 % (0.0-13.0) H 03/28/25 05:49 Eos % (Auto) 4.5 % (0.9-2.9) H 03/28/25 05:49 Baso % (Auto) 1.1 % (0.2-1.0) H 03/28/25 05:49 Neut # (Auto) 4.2 x10^3/uL (2.2-4.8) 03/28/25 05:49 Lymph # (Auto) 2.9 X10^3/uL (1.3-2.9) 03/28/25 05:49 Weak[place] # (Auto) 1.2 x10^3/uL (0.3-0.8) H 03/28/25 05:49 Eos # (Auto) 0.4 x10^3/uL (0.0-0.2) H 03/28/25 05:49 Baso # (Auto) 0.1 X10^3/uL (0.0-0.1) 03/28/25 05:49 Absolute Nucleated RBC 0.4 /100WBC 03/28/25 05:49 Sodium 141 mmol/L (136-145) 03/28/25 05:49 Corrected Sodium TNP 03/28/25 05:49 Potassium 4.4 mmol/L (3.5-5.1) 03/28/25 05:49 Chloride 105 mmol/L (98-107) 03/28/25 05:49 Carbon Dioxide 27.5 mmol/L (21-32) 03/28/25 05:49 BUN 11 mg/dL (7-18) 03/28/25 05:49 Creatinine 0.92 mg/dL (0.70-1.30) 03/28/25 05:49 Est GFR (MDRD) Af Amer > 60 (>60) 03/28/25 05:49 Est GFR (MDRD) Non-Af > 60 (>60) 03/28/25 05:49 Glucose 91 mg/dL (65-99) 03/28/25 05:49 Lactic Acid 1.4 mmol/L (0.4-2.0) 03/21/25 15:14 Calcium 8.8 mg/dL (8.5-10.1) 03/28/25 05:49 Corrected Calcium TNP 03/28/25 05:49 Total Bilirubin 0.40 mg/dL (0.2-1.0) 03/28/25 05:49 AST 89 Units/L (15-37) H 03/28/25 05:49 ALT 206 Units/L (12-78) H 03/28/25 05:49 Alkaline Phosphatase 103 Units/L (46-116) 03/28/25 05:49 Total Protein 7.8 g/dL (6.4-8.2) 03/28/25 05:49 Albumin 3.8 g/dL (3.4-5.0) 03/28/25 05:49 Globulin 4.0 g/dL (2.5-4.5) 03/28/25 05:49 Albumin/Globulin Ratio 1.0 Ratio (1.1-2.1) L 03/28/25 05:49 Vancomycin Trough 16.3 ug/mL (15-20) 03/27/25 04:28 Random Vancomycin 14.4 ug/mL 03/25/25 04:56 Blood Type A POSITIVE 03/28/25 07:20 Antibody Screen Negative 03/28/25 07:20 Plan (1) Cellulitis of right foot: Status: Acute Plan: IV vancomycin podiatry following (2) Multilevel degenerative disc disease: Status: Chronic (3) Hypothyroidism: Status: Chronic Qualifiers: Hypothyroidism type: acquired Qualified Code(s): E03.9 - Hypothyroidism, unspecified (4) Mixed hyperlipidemia: Status: Chronic (5) PVD (peripheral vascular disease): Status: Chronic
--- NOTE | 2025-03-28 09:47 | OR.IMMED ---
IMMEDIATE POST-OP NOTE Immediate Post-Op Note Date of surgery/procedure: 03/28/25 Pre-Op Diagnosis: Open surgical site from right foot infection Abscess, right foot Post-Op Diagnosis: Open surgical site from right foot infection Abscess, right foot Procedure: Repeat washout, removal of antibiotic beads and delayed primary closure of the right foot Surgeon/Surgeon Assistant: Kaylah Findings: Surgical site was clean, no signs of further infection Minimal bleeding encountered Swelling improved from previous surgery Closure achieved Specimens Removed: None Estimated Blood Loss: < 5cc Drains: NONE Complications: None Progress Notes: please see dictation Discharge Progress Notes: Patient returned to inpatient floors Can be discharged home from podiatric and vascular standpoint Spoke to Dr. Morales, patient is to follow up in 1 week with his office for post- op and to discuss left leg intervention Patient to be discharged home with pain medication and oral antibiotic as culture grew MRSA, both scripts in his chart Patient can follow up with Dr. Adrian on 04/08/2025 at 1:30 in the [place] office, business card left in his chart Patient can WBAT in surgical shoe Final Diagnosis: abscess, right foot
--- NOTE | 2025-03-28 09:59 | DR.OPNOTE ---
OP NOTE Pre-Op Diagnosis: Open surgical site, right foot Abcess of right foot Post-Op Diagnosis: Open surgical site, right foot Abcess of right foot Procedure Date Date Of Procedure: 03/28/25 Procedure: Repeat washout, removal of antibiotic beads and delayed primary closure all of right foot Type of Anesthesia: Local (IV sedation w/ local anesthesia) Findings: Hemostasis No tourniquet used Anesthesia IV sedation w/ local anesthetic block Injectables 12 cc of 0.25% Marcaine plain Materials used 3-0 Nylon Description: The patient presented to the pre-operative holding area having been NPO since midnight for a dual procedure with both Vascular and Podiatry. History and physical and all preoperative studies were reviewed and there were no contraindications to the proposed procedure. The patient confirmed the procedure to be performed. The risks and benefits of the procedure were again discussed with the patient prior to the procedure and the patient verbalized understanding. While in preoperative holding, the right foot was then marked with indelible ink. The patient was taken to the operating room and patient was transferred to the operating table in a supine position. The appropriate anesthetics were administered. The foot was then prepped and draped in the usual aseptic manner. The right lower extremity was then lowered to the OR table and sterile draping completed. Vascular performed their surgery first and then I came in to perform my portion of the procedure. A time-out was performed to verify the correct patient, procedure and extremity and the following procedure was done. The foot was then injected with 12 ccs of 0.25% Marcaine plain in a arina block fashion. Attention was directed towards the open surgical site and the antibiotic beads were removed, three in total were counted and verified from the previous surgery. The surgical site was examined. Utilizing a rongeur, any unhealthy tissue was removed. Prontason was then utilized to irrigate and washout the open surgical site. The open site was once again examined and appeared healthy. Skin was then reapproximated with 3-0 Nylon in simple interrupted suture type fashion. It should be noted that minimal blood loss was encountered at this time. Next, the foot was dressed with xeroform, 4 x 4 gauze, webril and rosa wrap. The patient tolerated the procedure and anesthesia well and was taken from the OR and returned back to the inpatient floors. Patient can be discharged home from both a podiatric and vascular standpoint- with pain medication and oral antibiotic as culture grew MRSA, both scripts in his chart. Patient can follow up with Dr. Adrian on 04/08/2025 at 1:30 in the [place] office, business card left in his chart. Patient can WBAT in surgical shoe. Patient is to follow up with Dr. Morales as well for post op management for his vascular procedure as well as for his left lower extremity in a week. Specimen/Pathology: None Type of Fluids Used:: Normal Saline EBL: < 5 cc Drains/Tubes Placed: None Hardware: None Cultures: None Complications:: None Disposition/Condition: Pt. tolerated procedure without difficulty. Extubated in the OR and taken to PACU in stable condition.
[2025-03-28 13:07] VITALS: BP 100/62; PULSE 70; RESP 20
--- NOTE | 2025-04-02 19:11 | DR.OPNOTE ---
OP NOTE Pre-Op Diagnosis: Critical ischemia right leg with wound over the dorsum of the right foot. Post-Op Diagnosis: Same, see finding Procedure Date Date Of Procedure: 03/28/25 Procedure: PROCEDURE: Diagnostic aortogram, diagnostic arteriogram right leg, balloon angioplasty of distal right dorsalis pedis and anterior tibial artery NARRATIVE: The patient was taken to the operative suite and placed in the supine position. The left groin and entire right leg were prepped and draped in sterile fashion. Patient was given intravenous sedation supervised by myself. Timeout for the procedure obtained. Ultrasound used to identify the femoral a rtery in the left groin and the skin overlying it infiltrated with 0.5% Marcaine. Ultrasound used to guide puncture of the left femoral artery and a 0.012 inch guidewire placed. Incision made over the guidewire at the skin edge with a #11 knife blade and the micro sheath placed over the guidewire into the femoral artery. Small wire exchanged for a 0.035 inch a Advantage Glidewire and the micro sheath exchanged for a 5 [place] vascular sheath. Patient given 5000 units of intravenous heparin. Omni catheter placed over the guidewire into the aorta and power injector used to perform aortogram showing normal aorta and iliac arteries bilaterally. The Omni catheter was then used to direct the guidewire down the right common iliac artery to the distal right external iliac artery. The Omni catheter exchanged for a [place] catheter and sequential arteriograms performed of the right leg showing normal superficial popliteal arteries, large right posterior tibial artery going to the ankle, small peroneal artery ending in the ankle and an occluded distal anterior tibial artery before it enters the foot to become the dorsalis pedis artery . The [place] catheter removed and over the guidewire the 5 [place] sheath was exchanged for a 7 [place] Sheath which was parked in the distal right superficial femoral artery. [place] catheter and the 0.035 guidewire used to traverse the arteries of the right leg ultimately ending in right anterior tibial artery and crossing the occlusion into the dorsalis pedis artery [place] catheter used to exchange 0.035 inch wire for a 0.014 inch Thruway wire. Over this wire we placed a Sanchez 2 mm x 220 mm balloon and inflated for 1 minute. After arterial intervention follow-up arteriogram performed showing excellent outcome. Wires and devices removed from the [place] sheath. This sheath pulled back into the aorta and a 0.035 guidewire placed. [place] sheath exchanged over the wire for a Angio-Seal device used to close the puncture of the left femoral artery. Patient taken to same-day surgery in good condition. Type of Anesthesia: Local (0.5% Marcaine) Anesthesia Comment: Plus MAC Findings: Large right posterior tibial artery. Peroneal artery is small being in the ankle. Anterior artery ends at the ankle but I was able to get a wire across into the dorsalis pedis and ballooned this open. Type of Fluids Used:: Lactated Ringers Total Amount of Fluid Infused:: 500cc Urine output: 400cc EBL: 50 cc Complications:: none Needle/Sponge Count:: correct Disposition/Condition: Pt. tolerated procedure without difficulty. Taken to [facility] in stable condition.
== END 2025-03-28 13:55 | disposition home or self-care (01) | DRG 982 ==
LOC: MED/SURG
PROVIDERS: ADMIT Family Medicine; ATTEND Family Medicine
PROC: [UNRECOGNIZED PROCEDURE] (2025-03-28 14:00)